=== PATIENT | male | born 1955 | race Caucasian/White ===

== ENCOUNTER 2019-02-18 11:20 | Day surgery (SDC) | payer SELFPAY ==
[2019-02-18] VITALS (9 sets, daily range): BP systolic 105–149; BP diastolic 57–122; PULSE 60–83; RESP 16–18; TEMP 36.2–36.5; O2SAT 95–98; BMI 23.9
--- NOTE | 2019-02-18 11:35 | ED.VIS.GEN ---
History of Present Illness Chief Complaint: Foreign Body Detail of Chief Complaint: Difficulty swallowing solid foods Informant: Patient Onset: Yesterday, Weeks - And many weeks ago Context: Sudden Onset Timing: Continuous Quality: Difficulty swallowing liquids and unable to swallow solids Location: Esophagus Current Severity: Mild Maximum Severity: Severe Worsened by: Attempt to eat solids Relieved by: Nothing Associated Symptoms: Patient states he attempted to eat cereal this morning and vomited Narrative: Patient is a 63-year-old male with no sniffing past medical history presents because he is unable to swallow solids. He reports similar episode several months ago. He is never had an EGD. He states last evening he had CABG soup with bread. He feels something is stuck and he points at the xiphoid process. This morning he attempted to have serial. The serial did not go down and he had to go to the sink to vomit. He attempted to drink tea 1 hour prior to presenting and reports difficulty. He denies fever, chills night sweats. Denies weight gain or weight loss. He has no history of reflux, hiatal hernia or peptic ulcer disease. Prior similar symptoms: Yes Recent Illness/Hospitalization: No - Past Medical History (1) No significant past medical history Status: Acute Past Medical History - Allergies and Home Meds Allergies/Adverse Reactions: Allergies No Known Allergies Allergy (Verified 02/18/19 11:24) Primary Care Physician: NOT,DEFINED [NON-STAFF] - Prior records reviewed: No Past Medical History: None Surgical History: no surgical history Lives: Spouse/ Significant Other Smoking Status: Never smoker Alcohol: None Review of Systems General: Denies: Chills, Fever, Sweats Eyes: Denies: Visual changes - bilaterally, Diplopia ENT: Reports: - - He denies dysphonia.. Denies: Bilateral ear pain, Rhinorrhea, Sore throat Cardiovascular: Denies: Chest pain, Palpitations Respiratory: Denies: Dyspnea, Cough, Dyspnea on exertion Gastrointestinal: Reports: Abdominal pain Genitourinary: Denies: Dysuria, Hematuria, Frequency Musculoskeletal: Denies: Myalgias, Neck pain, Back pain, Swelling, Extremity Pain Skin: Denies: Rash, Wounds Neurological: Denies: Headache, Weakness, Numbness Physical Exam Vital Signs/Narrative: Vital Signs Temp Pulse Resp BP Pulse Ox 02/18/19 11:21 97.2 F L 75 16 142/74 H 97 Inital Vital Signs reviewed: Yes General: Well nourished, Well developed, No Acute Distress Head: Normocephalic, Atraumatic Eyes: Perrl, EOMI. Negative for: Pale conjunctiva, Scleral icterus ENT: Moist mucous membranes, No rhinorrhea Neck: Supple, Nontender, No lymphadenopathy, No JVD Cardiovascular: Regular rate, Regular rhythm, No murmurs Respiratory: No distress, CTA bilaterally, Chest nontender Abdomen: Soft, Nontender, Nondistended, Normal bowel sounds Back: Nontender, Normal Inspection Skin: Normal color, No rash, No Trauma. Negative for: Cyanosis, Diaphoresis, Jaundice Neurological: Alert, Oriented x3, Cranial nerves II-XII grossly intact, Normal Strength, Normal Sensation Psychological: Normal affect, Normal Mood Diagnostic/Tx/Re-eval - Medical Decision Making Dr. Waldemar Owens was paged. Dr. Waldemar Owens was made aware patient's history and physical. He will contact Endo and Endo will call back and let us know when there is a time available for EGD. ED Disposition - Plan for ED Patient: Disposition: Home or Assisted Living Diagnosis: Esophageal obstruction due to food impaction Instructions: ESOPHAGEAL FOREIGN BODY, Resolved Referrals: NOT,DEFINED [NON-STAFF] - Tommy Owens MD [STAFF PHYSICIAN] -
--- NOTE | 2019-02-18 12:10 | PCM.HP.STD ---
Problem List (1) Esophageal obstruction due to food impaction Status: Acute History of Present Illness Date of Admission: 02/18/19 Chief Complaint: Esophageal obstruction The patient is a 63 year old M who presented with a feeling of solid food being stuck in his esophagus x 1 day. Patient noted having cabbage soup with bread yesterday. He noted the bread seem to stick and he had difficulty swallowing the bread completely. He notes trying cereal this morning which did not go down. He ended up throwing up the cereal. He tried to drink tea to see if this would help with swallowing. He continued to have a feeling of something being stuck. He denies abdominal pain. He denies having a a previous upper scope. He notes dysphagia has been ongoing for a couple years. He denies previous colonoscopy. He notes occasional rectal bleeding. He denies previous complications with anesthesia. He takes supplements daily, no routine medications. Past Medical History Allergies No Known Allergies Allergy (Verified 02/18/19 11:24) Surgical History: total hip arthroplasty - bilateral Psychiatric History: No pertinent psych hx Lives: Spouse/ Significant Other Smoking Status: Never smoker Alcohol: None - *Family History Maternal History Items: No pertinent history Paternal History Items: No pertinent history Review of Systems Constitutional: Reports: Anorexia HEENT: Denies: Head Aches, Sinus Congestion, Sinus Drainage Cardiovascular: Denies: Chest Pain, Palpitations Respiratory: Denies: Cough, Shortness of breath at rest, Sputum production Gastrointestinal: Reports: Abdominal Pain - epigastric pressure Genitourinary: Denies: Dysuria Musculoskeletal: Denies: Joint Pain, Joint Tenderness Skin: Denies: Rash, Wounds Neurological: Denies: Numbness, Tingling, Focal weakness Psychiatric: Denies: Anxiety, Depression, Homicidal Ideations, Suicidal Ideations Hematologic/ Lymphatic: Denies: Easy Bruising, Easy Bleeding VTE Information - Inpt Only VTE Present on Admission: Yes VTE Mechan Device Prophylaxis: SCD's - Physical Exam Vitals/I&O's: Vital Signs Temp Pulse Resp BP Pulse Ox 97.2 F L 72 18 137/63 H 96 02/18/19 11:21 02/18/19 11:59 02/18/19 11:59 02/18/19 11:59 02/18/19 11:59 Oxygen Delivery Method Room Air Weight: 166 lb 10.711 oz Body Mass Index (BMI) 23.9 General: Alert, Oriented x3, Cooperative HEENT: Atraumatic, PERRLA, EOMI, Normocephalic Neck: Supple, No JVD, Negative Carotid Bruits Lungs: Clear to auscultation, Normal air movement Cardiovascular: Regular rate, No murmurs Abdomen: Bowel Sounds Present, Soft, Non Tender, Non-Distended Extremities: No edema, Capillary Refill Less than 3 Seconds Skin: No rashes, No breakdown Musculoskeletal: No Tenderness to Palpation of Joints or Extremities Neurological: Neuro grossly intact Psych/Mental Status: Normal Affect, Appropriate Assessment/Plan All Active Problems No significant past medical history (Acute) Esophageal obstruction due to food impaction (Acute) I am seeing this patient in conjunction with Dr. Owens. Impression: Epigastric pressure. Esophageal obstruction. Plan: Patient was discussed with Dr. Owens. Dr. Owens will plan to perform an upper scope with possible foreign body removal, possible dilatation, possible biopsies. Procedure details, risks and benefits have been explained to the patient. Patient has had the opportunity to ask and have questions answered. Patient verbally understands and agrees with the plan. Thank you for allowing us to participate in this patient's care. Code Visit Office Visits / Consults: [id number] IP Consult L3
[2019-02-18] MEDS: Lactated Ringers 1,000 ML 100 ML IV (12:53)
--- NOTE | 2019-02-18 14:07 | OP.ENDO_ITS ---
02/18/2019 No Primary Care Physician Re : Upper GI endoscopy procedure for Simone Hunter Dear Care Physician This procedure was performed on Monday, February 18, 2019. My impressions and recommendations are as follows: Impressions : - Friable (with contact bleeding) mucosa in the esophagus. No specimens collected. - Normal stomach. No specimens collected. - Normal examined duodenum. No specimens collected. Recommendations : - Discharge patient to home. - Soft diet. - Use Prilosec OTC 20 mg PO daily for 4 weeks. - Continue present medications. My findings are described in the full procedure note, which is enclosed. If I can be of further assistance, please feel free to contact me at Doctor phone number(s): , Fax: [phone], Work: . Sincerely, MD Tommy ePrson MD 02/18/2019 2:06:40 PM This report has been signed electronically.
== END 2019-02-18 15:00 | disposition home or self-care (01) ==
LOC: ED 12:27 → AC 12:28
PROVIDERS: Emergency Provider Emergency Medicine; Visit Provider Surgery
PROC: 0DJ08ZZ Inspection of Upper Intestinal Tract, Via Natural or Artificial Opening Endoscopic (ICD-10-PCS; CPT 43235; principal; 2019-02-18 13:25)
DX: K22.8 Other specified diseases of esophagus (principal); T18.128A Food in esophagus causing other injury, initial encounter; X58.XXXA Exposure to other specified factors, initial encounter; Y93.9 Activity, unspecified; Y92.9 Unspecified place or not applicable; K21.9 Gastro-esophageal reflux disease without esophagitis
CPT/HCPCS: 43235; 99282; J7120; A4216; J2405

== ENCOUNTER 2022-10-11 13:11 | Inpatient (IN) | payer MEDICARE, SELFPAY ==
[2022-10-11] VITALS (25 sets, daily range): BP systolic 99–141; BP diastolic 70–99; PULSE 48–147; RESP 13–24; TEMP 36.2–36.7; O2SAT 92–98; BMI 26.0; BMI 24.7
--- NOTE | 2022-10-11 13:36 | EKG12_ITS ---
Test Reason : SOB Blood Pressure : / mmHG Vent. Rate : 140 BPM Atrial Rate : 000 BPM P-R Int : 000 ms QRS Dur : 096 ms QT Int : 284 ms P-R-T Axes : 000 017 140 degrees QTc Int : 433 ms Atrial fibrillation with rapid ventricular response ST & T wave abnormality, consider lateral ischemia Abnormal ECG Confirmed by SUSHMA VALERIO, BABAK ([id number]), visual effects editor KYMBERLY SANDERS ([id number]) on 10/14/2022 9:57:49 AM Referred By: RID Confirmed By:MADHAVI ORDAZ MD
--- NOTE | 2022-10-11 13:36 | RAD_ITS ---
STUDY: X-RAY CHEST REASON FOR EXAM: Male, 67 years old. Atypical chest pain TECHNIQUE: Single AP portable view of the chest. COMPARISON: None. FINDINGS: The lungs are clear and expanded. There is no demonstrated pleural abnormality. Normal size heart. Normal mediastinum and flavia. Normal visualized pulmonary arteries. Normal visualized aortic arch and descending thoracic aorta. There are diffuse degenerative changes of the visualized thoracic spine. Normal visualized ribs, clavicles, and shoulders. There is no demonstrated abnormality of the visualized soft tissue structures of the upper abdomen. RAD/Chest 1 View (Portable) IMPRESSION: No acute pulmonary process Electronically Signed: Lc Pierson MD at 14:10 EDT ,
--- NOTE | 2022-10-11 13:39 | ED.VIS.DYS ---
HPI History of Present Illness Chief Complaint: Shortness of Breath Narrative Narrative: 67-year-old male who denies significant past medical history presents from the clinic with reported atrial fibrillation with RVR. He relates history that for the last week he has been short of breath with dyspnea on exertion. He denies any fevers or chills, no cough, but yesterday he noticed that his bilateral legs were swollen. He denies any chest pain. No nausea or vomiting, no other symptoms. He states that he had a heart rate in the 40s at this outpatient clinic, and they performed an EKG and he was shown to have a heart rate in the 126. They scheduled him for an outpatient echocardiogram, but told him to go to the emergency department for further evaluation. [facility] Home Medications Oregano powder 10/11/22 [History Last Taken Unknown] Allergy/AdvReac Type Severity Reaction Status Date / Time No Known Allergies Allergy Verified 02/18/19 11:24 Social History Smoking Status: Never smoker ROS ROS ED ROS Narrative Constitutional: No fever, no chills. HEENT: No sore throat. No neck pain. No loss of vision. No rhinorrhea. Cardiovascular: No chest pain currently. No palpitations. No pedal edema. Respiratory: No cough, positive shortness of breath. Abdominal: No abdominal pain. No nausea. No vomiting. Genitourinary: No dysuria. No hematuria. Musculoskeletal: No myalgias. No arthralgias. Neurologic: No headaches. No dizziness. No lightheadedness. Skin: No rash. No change in color. Psychiatric: No depression. No anxiety. EXAM Physical Exam Narrative Exam Narrative: Afebrile. Vital signs noted. HEENT: Normocephalic. Atraumatic. PERRL, EOMI. Neck soft and supple. No point tenderness or step off. Cardiovascular: Irregularly irregular rhythm, no murmurs, rubs, or gallops appreciated. Respiratory: No tachypnea. Lungs clear to auscultation bilaterally. Gastrointestinal: Abdomen soft, nontender, with normoactive bowel sounds. No rebound or guarding. Neurological: Awake. Alert. Nonfocal, nonlateralizing. Skin: No rash. Normal color. No pallor. Musculoskeletal: Trace to 1+ bilateral symmetric pedal edema. Full range of motion extremities. Const Vital Signs: 10/11/22 13:11 10/11/22 13:54 10/11/22 13:55 Temperature 97.2 F L Temperature Source Temporal Pulse Rate 48 L Respiratory Rate 18 Respiratory Effort Normal Non-Labored Respiratory Depth Normal Respiratory Pattern Normal Blood Pressure 131/87 H Blood Pressure Mean 101 Pulse Ox 98 98 Oxygen Delivery Method Room Air Room Air Room Air 10/11/22 14:24 10/11/22 14:47 10/11/22 14:50 Temperature Temperature Source Pulse Rate 142 H 147 H 106 H Respiratory Rate 21 H 21 H Respiratory Effort Respiratory Depth Respiratory Pattern Blood Pressure 120/89 H 122/83 H Blood Pressure Mean 99 96 Pulse Ox 97 97 Oxygen Delivery Method Room Air Room Air 10/11/22 14:54 10/11/22 15:06 Temperature Temperature Source Pulse Rate 91 93 Respiratory Rate Respiratory Effort Respiratory Depth Respiratory Pattern Blood Pressure Blood Pressure Mean Pulse Ox Oxygen Delivery Method MDM MDM MDM Narrative Medical decision making narrative: I reviewed his outpatient EKGs which shows A-fib with RVR at [address] changes. No STEMI. I do feel that he needs a repeat EKG. EKG obtained here interpreted by myself independently shows atrial fibrillation with rapid ventricular response at [address] changes. No STEMI. I reviewed his laboratory work and he has a normal white count of 7.5, hemoglobin 15.1, hematocrit normal at 45.0, platelet count normal at 158. Magnesium is normal at 2.0, initial high-sensitivity troponin is 14. BNP is elevated at 447, which I feel is secondary to his atrial fibrillation with rapid ventricular response. My interpretation of his chest x-ray shows no acute process, no pneumonia or CHF. TSH was reviewed and is 2.97. At this point in time, for rate control he will be given a Cardizem bolus of 20 mg. I will discuss patient with the hospitalist for admission for his new onset atrial fibrillation and elevated BNP. After Cardizem, his heart rate is in the 80s to 90s. I discussed the patient with Dr. Magaña who would like the patient placed on a Cardizem drip and admitted to the PCU. Disposition is admit in stable condition. History & Record Review Discussion w/independent historian: Patient Additional record(s) reviewed:: Prior outpatient record (Sent from outpatient clinic) Lab Data Attestation: I reviewed the patient's lab results. Labs: Laboratory Results - last 24 hr 10/11/22 10/11/22 10/11/22 13:51 13:51 13:51 WBC 7.5 RBC 4.83 Hgb 15.1 Hct 45.0 MCV 93.2 MCH 31.3 MCHC 33.6 RDW Std Deviation 51.5 H RDW Coeff of Jacqueline 15.1 H Plt Count 158 MPV 13.0 H Immature Gran % (Auto) 0.300 Neut % (Auto) 54.7 Lymph % (Auto) 31.1 [place] % (Auto) 10.3 H Eos % (Auto) 2.8 Baso % (Auto) 0.8 Absolute Neuts (auto) 4.1 Absolute Lymphs (auto) 2.32 Nucleated RBC % 0 Magnesium 2.0 Troponin I High Sens Cancelled 14 B-Natriuretic Peptide TSH 2.97 10/11/22 13:51 WBC RBC Hgb Hct MCV MCH MCHC RDW Std Deviation RDW Coeff of Jacqueline Plt Count MPV Immature Gran % (Auto) Neut % (Auto) Lymph % (Auto) [place] % (Auto) Eos % (Auto) Baso % (Auto) Absolute Neuts (auto) Absolute Lymphs (auto) Nucleated RBC % Magnesium Troponin I High Sens B-Natriuretic Peptide 447.9 H TSH Radiography Diagnostic Testing: Clinical Impression(s) from Imaging Studies Chest X-Ray 10/11/22 13:36 IMPRESSION: No acute pulmonary process Electronically Signed: Lc Pierson MD at 14:10 EDT Reading Location ID and State: [facility] / [place] , Service support , Discharge Plan Dx/Rx/DC Orders Clinical Impression: Atrial fibrillation, new onset, Atrial fibrillation with RVR, Elevated brain natriuretic peptide (BNP) level, SOB (shortness of breath) Disposition Disposition: [facility]
[2022-10-11] MEDS: Aspirin 81 MG TAB.CHEW 324 MG PO (13:59)
[2022-10-11 14:05] LABS: Absolute Lymphocyte Count 2.32 X10^3/uL (0.83-4.51); Absolute Neutrophil Count 4.1 X10^3/uL (2.0-7.7); Basophil# 0.06 X10^3/uL; Basophil% 0.8 % (0-1); Eosinophil# 0.21 X10^3/uL; Eosinophils% 2.8 % (0-5); Hemoglobin 15.1 g/dL (13.0-16.5); Lymphocyte # 2.32 X10^3/ul (0.83-4.51); Lymphocyte % 31.1 % (19-41); Mean Corp Hgb Conc 33.6 g/dL (32-36); Mean Corpuscular Hgb 31.3 pg (27.0-32.0); Mean Corpuscular Volume 93.2 fL (80-94); Monocyte# 0.77 X10^3/uL; Monocyte% 10.3 % (0-10); NRBC Flagged by Analyzer 0 % (0-5); Neutrophil # 4.07 X10^3/uL (2.7-7.7); Neutrophil % 54.7 % (47-70); Platelet Count 158 K/mm3 (150-450); RBC Distribution Width CV 15.1 % (11.6-14.6); RBC Distribution Width SD 51.5 fl (35.1-43.9); Red Blood Count 4.83 M/mm3 (4.6-6.2); White Blood Count 7.5 K/mm3 (4.4-11.0)
[2022-10-11 14:17] LABS: BNP,B-Type NATRIURETIC PEPTIDE 447.9 pg/mL (0-100)
[2022-10-11 14:26] LABS: Thyroid Stim Hormone (TSH) 2.97 uIU/mL (0.358-3.74)
[2022-10-11 14:33] LABS: Troponin-I HS (w/2H Reflex) 14 pg/mL (3.0-78.0)
[2022-10-11] MEDS: dilTIAZem 25 MG/5 ML Vial 20 MG IV BOLUS (14:46)
--- NOTE | 2022-10-11 15:45 | ED.RN ---
PER DR. THORNTON, D/T VITALS DO NOT START CARDIZEM DRIP AT THIS TIME.
[2022-10-11 15:58] LABS: Reflex Troponin-HS? (from REC) Y
--- NOTE | 2022-10-11 16:10 | ECHOD_ITS ---
Reason For Study: CONGESTIVE HEART FAILURE Procedure This was a 2D Doppler, Color Flow transthoracic echocardiogram. Exam performed portable in patient room. Left Ventricle Normal LV size. The estimated ejection fraction is 50-55 %. Diastolic function is indeterminate. No regional wall motion abnormalities noted. Right Ventricle Normal RV size. Normal systolic function. Atria The left atrium is moderately enlarged. The right atrium is mildly enlarged. No doppler evidence for ASD. Mitral Valve There is no mitral valve stenosis. Severe (4+) mitral valve insufficiency. Tricuspid Valve There is no tricuspid stenosis. Trivial tricuspid valve insufficiency. Pulmonary artery systolic pressure is 25 mmHg. Aortic Valve Moderate diffuse aortic valve calcification. Trisinus/trileaflet aortic valve. There is no aortic stenosis. No aortic valve insufficiency. Pulmonic Valve There is no pulmonic valvular stenosis. Trivial pulmonic valve insufficiency. Great Vessels Normal aortic root. Pericardium/Pleural Trivial pericardial effusion. MMode/2D Measurements & Calculations LVIDd: 6.2 cm IVSd: 0.94 cm LVOT diam: 2.0 cm LVIDs: 5.1 cm LVPWd: 0.90 cm LVOT area: 3.0 cm2 RVDd: 3.6 cm FS: 17.4 % LAV(MOD-bp): 139.0 ml LVAd ap4: 41.2 cm2 LVAd ap2: 47.1 cm2 LAV(MOD-bp) Indexed: 71.0 ml/m2 LVLd ap4: 8.9 cm LVLd ap2: 9.8 cm LAV(MOD-sp2): 146.8 ml EDV(MOD-sp4): 157.8 ml EDV(MOD-sp2): 188.9 ml LAV(MOD-sp4): 110.7 ml EDV(sp4-el): 161.6 ml EDV(sp2-el): 192.2 ml LVAs ap4: 28.7 cm2 LVAs ap2: 32.7 cm2 LVLs ap4: 7.0 cm LVLs ap2: 8.1 cm ESV(MOD-sp4): 98.0 ml ESV(MOD-sp2): 111.6 ml ESV(sp4-el): 100.6 ml ESV(sp2-el): 111.5 ml EF(MOD-sp4): 37.9 % EF(MOD-sp2): 41.0 % EF(sp4-el): 37.8 % SV(MOD-sp4): 59.8 ml SV(MOD-sp2): 77.4 ml SV(sp4-el): 61.0 ml LA dimension(2D): 5.0 cm LA A4 area: 31.6 cm2 RA A4 area: 22.1 cm2 Time Measurements MV dec time: 0.15 sec Doppler Measurements & Calculations MV E max marcos: 97.5 cm/sec Lat Peak E' Marcos: 12.1 cm/sec Med Peak E' Marcos: 10.1 cm/sec E/E' lat: 8.1 E/E' med: 9.6 Ao V2 max: 132.8 cm/sec LV V1 max: 93.0 cm/sec SV(LVOT): 47.5 ml Ao max P.1 mmHg LV V1 max P.5 mmHg Ao V2 mean: 90.8 cm/sec LV V1 mean P.1 mmHg Ao mean P.8 mmHg LV V1 mean: 67.5 cm/sec Ao V2 VTI: 23.3 cm LV V1 VTI: 15.6 cm AV (velocity ratio): 0.67 PACO(I,D): 2.0 cm2 PACO(V,D): 2.1 cm2 PA V2 max: 116.0 cm/sec TR max marcos: 233.4 cm/sec PA max PG (full): 4.1 mmHg TR max P.8 mmHg ECHO/Echo Complete Interpretation Summary The estimated ejection fraction is 50-55 %. Diastolic function is indeterminate. Severe (4+) mitral valve insufficiency. The left atrium is moderately enlarged. The right atrium is mildly enlarged. Ordering Physician: Bennie Magaña Performed By: Natalya Verduzco RDCS
[2022-10-11 16:31] LABS: Troponin-I HS 14 pg/mL (3.0-78.0)
--- NOTE | 2022-10-11 17:01 | PCM.HP.STD ---
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 Denied any orthopnea, however admitted to symptoms of paroxysmal nocturnal dyspnea. He denies any chest pain or palpitations. No prior history of heart disease. In the emergency department he was found to be in atrial fibrillation with rapid ventricular response with heart rates as high as 140 and was given a bolus of Cardizem with rate now under control. [facility] Home Medications Oregano powder 10/11/22 [History Last Taken Unknown] Allergy/AdvReac Type Severity Reaction Status Date / Time No Known Allergies Allergy Verified 02/18/19 11:24 Surgical History Hip joint replacement by other means Social History Smoking Status: Never smoker ROS ROS Narrative Denies any chest pain abdominal pain or nausea or vomiting. All other systems reviewed and essentially negative as above in the body of the history. Vital Signs Vital Signs Vital Signs: 10/11/22 13:11 10/11/22 13:54 10/11/22 13:55 Temperature 36.2 C L Temperature Source Temporal Pulse Rate 48 L Respiratory Rate 18 Respiratory Effort Normal Non-Labored Respiratory Depth Normal Respiratory Pattern Normal Blood Pressure 131/87 H Blood Pressure Mean 101 Blood Pressure Source Blood Pressure Position Blood Pressure Location Pulse Ox 98 98 Oxygen Delivery Method Room Air Room Air Room Air 10/11/22 14:24 10/11/22 14:47 10/11/22 14:50 Temperature Temperature Source Pulse Rate 142 H 147 H 106 H Respiratory Rate 21 H 21 H Respiratory Effort Respiratory Depth Respiratory Pattern Blood Pressure 120/89 H 122/83 H Blood Pressure Mean 99 96 Blood Pressure Source Blood Pressure Position Blood Pressure Location Pulse Ox 97 97 Oxygen Delivery Method Room Air Room Air 10/11/22 14:54 10/11/22 15:06 10/11/22 15:42 Temperature 36.6 C Temperature Source Temporal Pulse Rate 91 93 88 Respiratory Rate 13 Respiratory Effort Respiratory Depth Respiratory Pattern Blood Pressure 101/77 Blood Pressure Mean 85 Blood Pressure Source Blood Pressure Position Blood Pressure Location Pulse Ox 97 Oxygen Delivery Method Room Air 10/11/22 15:45 10/11/22 15:49 10/11/22 16:17 Temperature Temperature Source Pulse Rate 82 96 95 Respiratory Rate 19 H Respiratory Effort Respiratory Depth Respiratory Pattern Blood Pressure 102/78 Blood Pressure Mean 86 Blood Pressure Source Blood Pressure Position Blood Pressure Location Pulse Ox 97 Oxygen Delivery Method Room Air 10/11/22 16:38 Temperature 36.7 C Temperature Source Oral Pulse Rate 97 Respiratory Rate 17 Respiratory Effort Respiratory Depth Respiratory Pattern Blood Pressure 114/91 H Blood Pressure Mean 98 Blood Pressure Source Monitor Blood Pressure Position Semi-Fowlers Blood Pressure Location Right Arm Pulse Ox 97 Oxygen Delivery Method Room Air Weight Weight: 78.1 kg Body Mass Index (BMI) 24.7 Physical Exam Narrative General exam. Middle-aged man, anxious appearing, not particularly dyspneic or ill-appearing Neck. There is jugular venous distention 2+. Neck is supple. HEENT. Oral mucosa moist no pallor jaundice no cyanosis. Heart. Heart sounds are irregular. No murmurs heard Lungs. Diminished breath sounds in the bases. Extremities. 2+ pitting edema in both lower extremities. [employer]. Conscious and alert and oriented x3. Cranial nerves II to XII grossly intact. Results Lab / Micro Data Result Diagrams: 10/11/22 13:51 Labs: Laboratory Results - last 24 hr 10/11/22 13:51: WBC 7.5, RBC 4.83, Hgb 15.1, Hct 45.0, MCV 93.2, MCH 31.3, MCHC 33.6, RDW Std Deviation 51.5 H, RDW Coeff of Jacqueline 15.1 H, Plt Count 158, MPV 13.0 H, Immature Gran % (Auto) 0.300, Neut % (Auto) 54.7, Lymph % (Auto) 31.1, [place] % (Auto) 10.3 H, Eos % (Auto) 2.8, Baso % (Auto) 0.8, Absolute Neuts (auto) 4.1, Absolute Lymphs (auto) 2.32, Nucleated RBC % 0 10/11/22 13:51: Magnesium 2.0, Troponin I High Sens Cancelled, TSH 2.97 10/11/22 13:51: Troponin I High Sens 14 10/11/22 13:51: B-Natriuretic Peptide 447.9 H 10/11/22 16:10: Troponin I High Sens 14 Radiology Impression Chest X-Ray 10/11/22 13:36 IMPRESSION: No acute pulmonary process Electronically Signed: Lc Pierson MD at 14:10 EDT Reading Location ID and State: [address] [place] [address] , Service support , Assessment & Plan Assessment/Plan (1) Atrial fibrillation with RVR: PLAN: Plan 1. Newly detected/new onset atrial fibrillation with rapid ventricular response. Has received a bolus of Cardizem with 20 mg. We will start patient on Cardizem drip to ensure rates remain controlled. Tomorrow can transition to oral administered jose blockers while titrating off Cardizem drip. Echocardiogram as part of evaluation. Consult cardiology. Keep on telemetry. Check TSH levels. [id number] score of 2. We will start patient on anticoagulation with Lovenox. Possible transition to oral NOAC prior to discharge. 2. New onset congestive heart failure. Given cardiomegaly on chest x-ray/plain radiographs suspect systolic congestive heart failure. Echocardiogram for evaluation above. CHF may have been precipitated by atrial fibrillation or may have been the cause of the atrial fibrillation. It remains to determine. Charges/Coding Visit Charges Inpatient E&M: 98052 Init Hosp L3
[2022-10-11] MEDS: Furosemide 40 MG/4 ML Vial IV (18:43)
[2022-10-11] MEDS: 0.9% Saline Lock 10 ML Syringe IV (18:44)
[2022-10-11] MEDS: Enoxaparin 100 MG/ML Syringe 80 MG SC (20:37)
[2022-10-12] VITALS (27 sets, daily range): BP systolic 101–138; BP diastolic 68–99; PULSE 61–120; RESP 14–23; TEMP 35.9–36.8; O2SAT 90–99
[2022-10-12] MEDS: 0.9% Saline Lock 10 ML Syringe IV ×5 (02:49→21:38)
[2022-10-12 07:24] LABS: Absolute Lymphocyte Count 2.65 X10^3/uL (0.83-4.51); Absolute Neutrophil Count 3.2 X10^3/uL (2.0-7.7); Basophil# 0.05 X10^3/uL; Basophil% 0.7 % (0-1); Eosinophil# 0.28 X10^3/uL; Eosinophils% 4.1 % (0-5); Hematocrit 41.2 % (40-54); Lymphocyte # 2.65 X10^3/ul (0.83-4.51); Lymphocyte % 38.5 % (19-41); Mean Corpuscular Hgb 31.2 pg (27.0-32.0); Mean Corpuscular Volume 91.8 fL (80-94); Mean Platelet Vol. 13.4 fl (6.2-12.0); Monocyte# 0.65 X10^3/uL; Monocyte% 9.4 % (0-10); NRBC Flagged by Analyzer 0 % (0-5); Neutrophil # 3.24 X10^3/uL (2.7-7.7); Platelet Count 126 K/mm3 (150-450); RBC Distribution Width CV 15.1 % (11.6-14.6); RBC Distribution Width SD 50.8 fl (35.1-43.9); Red Blood Count 4.49 M/mm3 (4.6-6.2); White Blood Count 6.9 K/mm3 (4.4-11.0)
[2022-10-12 08:05] LABS: AST(SGOT) 50 U/L (15-37); Alanine Aminotransfer ALT/SGPT 130 U/L (16-61); Alkaline Phosphatase 77 U/L (45-117); Anion Gap 7 (5-15); BUN 15 mg/dL (7-18); Calcium,Total 8.5 mg/dL (8.5-10.1); Chloride 111 mmol/L (98-107); Creatinine, Serum 0.83 mg/dL (0.70-1.30); EST Glomerular Filtration Rate 98 mL/min (>60); Est Glom Filt Rate - Afr Amer 118 mL/min (>60); Estimated Creatinine Clearance 87.95 ml/min; Glucose 91 mg/dL (74-106); Phosphorus 4.2 mg/dL (2.5-4.9); Potassium 3.7 mmol/L (3.5-5.1); Sodium Level 141 mmol/L (136-145)
--- NOTE | 2022-10-12 08:29 | PCM.PN.HOSP ---
Reason for Visit Reason for Visit: Diagnoses Unspecified atrial fibrillation (10/11/22) Subjective Subjective Feels good. Has been short of breath for 1 week. Objective Data Objective Data Vital Signs: Vital Signs Temp Pulse Resp BP Pulse Ox O2 Del Method 36.6 C 79 17 116/84 H 96 Room Air 10/12/22 08:00 10/12/22 08:00 10/12/22 08:00 10/12/22 08:00 10/12/22 08:00 10/12/22 08:00 Oxygen Delivery Method Room Air Weight: 78.1 kg Body Mass Index (BMI) 24.7 Intake & Output: Intake and Output for Last 24 Hours 10/10/22 10/11/22 10/12/22 23:59 23:59 23:59 Intake Total 356.17 / 371.17 98.75 / 98.75 Output Total 3300 / 3300 750 / 750 Balance -2943.83 / -2928.83 -651.25 / -651.25 Lab / Micro Data Result Diagrams: 10/12/22 06:49 10/12/22 06:49 Labs: Laboratory Results - last 24 hr 10/11/22 13:51: WBC 7.5, RBC 4.83, Hgb 15.1, Hct 45.0, MCV 93.2, MCH 31.3, MCHC 33.6, RDW Std Deviation 51.5 H, RDW Coeff of Jacqueline 15.1 H, Plt Count 158, MPV 13.0 H, Immature Gran % (Auto) 0.300, Neut % (Auto) 54.7, Lymph % (Auto) 31.1, [place] % (Auto) 10.3 H, Eos % (Auto) 2.8, Baso % (Auto) 0.8, Absolute Neuts (auto) 4.1, Absolute Lymphs (auto) 2.32, Nucleated RBC % 0 10/11/22 13:51: Magnesium 2.0, Troponin I High Sens Cancelled, TSH 2.97 10/11/22 13:51: Troponin I High Sens 14 10/11/22 13:51: B-Natriuretic Peptide 447.9 H 10/11/22 16:10: Troponin I High Sens 14 10/12/22 06:49: WBC 6.9, RBC 4.49 L, Hgb 14.0, Hct 41.2, MCV 91.8, MCH 31.2, MCHC 34.0, RDW Std Deviation 50.8 H, RDW Coeff of Jacqueline 15.1 H, Plt Count 126 L, MPV 13.4 H, Immature Gran % (Auto) 0.300, Neut % (Auto) 47.0, Lymph % (Auto) 38.5, [place] % (Auto) 9.4, Eos % (Auto) 4.1, Baso % (Auto) 0.7, Absolute Neuts (auto) 3.2, Absolute Lymphs (auto) 2.65, Nucleated RBC % 0 10/12/22 06:49: Sodium 141, Potassium 3.7, Chloride 111 H, Carbon Dioxide 23.0, Anion Gap 7, BUN 15, Creatinine 0.83, Estim Creat Clear Calc 87.95, Est GFR (MDRD) Af Amer 118, Est GFR (MDRD) Non-Af 98, BUN/Creatinine Ratio 18.0, Glucose 91, Calcium 8.5, Phosphorus 4.2, Magnesium 2.0, Total Bilirubin 0.80, AST 50 H, ALT 130 H, Alkaline Phosphatase 77, Total Protein 6.0 L, Albumin 3.0 L, Globulin 3.0, Albumin/Globulin Ratio 1.0 Radiography Diagnostic Testing: Radiology Impression Chest X-Ray 10/11/22 13:36 IMPRESSION: No acute pulmonary process Electronically Signed: Lc Pierson MD at 14:10 EDT Reading Location ID and State: [address] [place] [address] , Service support , Physical Exam Const alert and no apparent distress HEENT head/scalp atraumatic and moist oral mucous membranes Resp normal respiratory effort, no retractions, no use of accessory muscles and clear to auscultation bilaterally Cardio regular rate, regular rhythm, S1 normal heart sound and S2 normal heart sound Extremity normal to inspection Assessment & Plan Assessment/Plan (1) Atrial fibrillation with RVR: PLAN: Newly detected/new onset atrial fibrillation with rapid ventricular response. Has received a bolus of Cardizem with 20 mg. We will start patient on Cardizem drip to ensure rates remain controlled. Tomorrow can transition to oral administered jose blockers while titrating off Cardizem drip. Echocardiogram as part of evaluation. Consult cardiology. TSH WNL. [id number] score of 2. We will start patient on anticoagulation with Lovenox. Possible transition to oral NOAC prior to discharge. Check echo PLAN: Plan CHF ruled out. CXR reviewed and was unremarkable. VTE prophylaxis: not indicated as he is anticoagulated Charges/Coding Visit Charges Inpatient E&M: 23452 Subs Hosp L2
[2022-10-12] MEDS: Enoxaparin 100 MG/ML Syringe 80 MG SC (09:27)
[2022-10-12] MEDS: Furosemide 40 MG/4 ML Vial IV ×2 (09:28→17:27)
--- NOTE | 2022-10-12 12:10 | CASEMGMT ---
RN CM Face to Face with patient for initial transition planning/care coordination assessment. RN CM introduced self and role at [facility]. Patient lying in bed, alert and oriented. Patient willing to participate in assessment and is able to answer all questions appropriately. Care providers, pharmacy, and demographics verified. Patient wishes to discharge home, denies need for home health at this time. Patient states he has no further needs or concerns at this time. CM to follow for discharge planning needs that may arise. PCP: No PCP, CM to provided PCP list Specialists: none Preferred Pharmacy: [facility] Insurance: [employer] Prescription Benefit: none Living Will/HPOA: yes, Sultana Hunter LNOK: Living Arrangements: Patient lives with in a 2 story home with bed and bath on first floor, no steps to enter. Patient states he is independent at home. Transportation: self, DME/HHC: Patient has cane, walker, wheelchair at home. No previous HHC or SNF. Disposition Plan: Patient to discharge home with family support and follow-up plans in place. Lona COTE, RN, CM
--- NOTE | 2022-10-12 16:39 | PCM.CONS.C ---
Assessment & Plan Assessment/Plan (1) Atrial fibrillation, new onset: PLAN: We will switch to p.o. Cardizem and try to wean off IV Cardizem. We will start the patient on Eliquis. Risks and benefits explained to the patient. (2) Mitral regurgitation: PLAN: Patient has severe mitral regurgitation. Explained to the patient that most likely we will need further work-up of this and he may end up needing mitral valve replacement. Patient did not have palpitations. Her shortness of breath and lower extremity edema symptoms have been going on over the last few days. It is possible that patient had A-fib with RVR and his ejection fraction being at the lower limits of normal is related to prolonged A-fib with RVR. As an outpatient as far as mitral regurgitation is concerned we could consider a ALLISON or repeat echo. Alternatively we could proceed with cardiac cath in anticipation of MVR. I explained to the patient that these will be discussed with him as an outpatient and and advised him to bring up his valve regurgitation during his office visit. 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 Patient was found to be in A-fib with RVR. He was started on Cardizem drip and also given Lasix. His symptoms have improved. His echo shows EF of 50 to 50% with severe mitral regurgitation. Review of systems: All systems reviewed. All system negative except that in HPI [facility] Home Medications Oregano powder 10/11/22 [History Last Taken Unknown] Allergy/AdvReac Type Severity Reaction Status Date / Time No Known Allergies Allergy Verified 02/18/19 11:24 Surgical History Hip joint replacement by other means Social History Smoking Status: Never smoker Physical Exam Const alert and oriented x3 HEENT normocephalic Eyes no scleral icterus Resp normal respiratory effort and clear to auscultation bilaterally Cardio Cardio Narrative: Irregular rhythm Extremity no pedal edema Psych mental status grossly normal Risk Stratification Risk Stratification Applicable: No Charges/Coding Visit Charges Inpatient E&M: 65370 Init Hosp L2 Objective Data Vital Signs: Vital Signs Temp Pulse Resp BP Pulse Ox O2 Del Method 98 F 120 H 20 H 107/73 99 Room Air 10/12/22 12:00 10/12/22 15:00 10/12/22 15:00 10/12/22 15:00 10/12/22 15:00 10/12/22 15:00 Oxygen Delivery Method Room Air Weight: 172 lb 2.896 oz Body Mass Index (BMI) 24.7 Intake & Output: Intake and Output for Last 24 Hours 10/10/22 10/11/22 10/12/22 23:59 23:59 23:59 Intake Total 356.17 / 371.17 808.75 / 808.75 Output Total 3300 / 3300 1950 / 1950 Balance -2943.83 / -2928.83 -1141.25 / -1141.25 Lab / Micro Data Result Diagrams: 10/12/22 06:49 10/12/22 06:49 Labs: Laboratory Results - last 24 hr 10/12/22 06:49: WBC 6.9, RBC 4.49 L, Hgb 14.0, Hct 41.2, MCV 91.8, MCH 31.2, MCHC 34.0, RDW Std Deviation 50.8 H, RDW Coeff of Jacqueline 15.1 H, Plt Count 126 L, MPV 13.4 H, Immature Gran % (Auto) 0.300, Neut % (Auto) 47.0, Lymph % (Auto) 38.5, [place] % (Auto) 9.4, Eos % (Auto) 4.1, Baso % (Auto) 0.7, Absolute Neuts (auto) 3.2, Absolute Lymphs (auto) 2.65, Nucleated RBC % 0 10/12/22 06:49: Sodium 141, Potassium 3.7, Chloride 111 H, Carbon Dioxide 23.0, Anion Gap 7, BUN 15, Creatinine 0.83, Estim Creat Clear Calc 87.95, Est GFR (MDRD) Af Amer 118, Est GFR (MDRD) Non-Af 98, BUN/Creatinine Ratio 18.0, Glucose 91, Calcium 8.5, Phosphorus 4.2, Magnesium 2.0, Total Bilirubin 0.80, AST 50 H, ALT 130 H, Alkaline Phosphatase 77, Total Protein 6.0 L, Albumin 3.0 L, Globulin 3.0, Albumin/Globulin Ratio 1.0 Cardiology Labs/Tests 10/12/22 06:49: WBC 6.9, RBC 4.49 L, Hgb 14.0, Hct 41.2, MCV 91.8, MCH 31.2, MCHC 34.0, Plt Count 126 L, MPV 13.4 H, Immature Gran % (Auto) 0.300, Neut % (Auto) 47.0, Lymph % (Auto) 38.5, [place] % (Auto) 9.4, Eos % (Auto) 4.1, Baso % (Auto) 0.7, Absolute Neuts (auto) 3.2, Nucleated RBC % 0 10/12/22 06:49: Sodium 141, Potassium 3.7, Chloride 111 H, Carbon Dioxide 23.0, Anion Gap 7, BUN 15, Creatinine 0.83, Est GFR (MDRD) Af Amer 118, Est GFR (MDRD) Non-Af 98, BUN/Creatinine Ratio 18.0, Glucose 91, Calcium 8.5, Phosphorus 4.2, Magnesium 2.0, Total Bilirubin 0.80 Rhythm: EKG: ECHO: Stress Test: Cardiac Cath: PCI: CT Surgery: Holter monitor: EPS: PPM: CXR: Chest CT Scan: Radiography Diagnostic Testing: Radiology Impression Echocardiogram 10/11/22 16:10 Interpretation Summary The estimated ejection fraction is 50-55 %. Diastolic function is indeterminate. Severe (4+) mitral valve insufficiency. The left atrium is moderately enlarged. The right atrium is mildly enlarged. Ordering Physician: Bennie Magaña Performed By: Natalya Verduzco RDCS
[2022-10-12] MEDS: dilTIAZem 30 MG Tablet PO ×2 (17:27→21:38)
[2022-10-12] MEDS: APIXABAN 5 MG TABLET PO (21:38)
[2022-10-13 04:17] VITALS: BP 104/74; PULSE 103; RESP 18; TEMP 36.6; O2SAT 94
[2022-10-13] MEDS: dilTIAZem 30 MG Tablet PO (05:12)
--- NOTE | 2022-10-13 08:16 | PCM.PN.HOSP ---
Reason for Visit Reason for Visit: Diagnoses Nonrheumatic mitral (valve) insufficiency (10/11/22) Unspecified atrial fibrillation (10/11/22) Heart failure, unspecified (10/11/22) Subjective Subjective Feels well. Objective Data Objective Data Vital Signs: Vital Signs Temp Pulse Resp BP Pulse Ox O2 Del Method 36.6 C 103 H 18 104/74 94 Room Air 10/13/22 04:17 10/13/22 04:17 10/13/22 04:17 10/13/22 04:17 10/13/22 04:17 10/13/22 08:00 Oxygen Delivery Method Room Air Weight: 78.1 kg Body Mass Index (BMI) 24.7 Intake & Output: Intake and Output for Last 24 Hours 10/11/22 10/12/22 10/13/22 23:59 23:59 23:59 Intake Total 356.17 / 371.17 1343.33 / 1693.33 350 / 350 Output Total 3300 / 3300 2850 / 5250 2400 / 2400 Balance -2943.83 / -2928.83 -1506.67 / -3556.67 -2050 / -2050 Lab / Micro Data Result Diagrams: 10/13/22 11:25 10/13/22 11:25 Radiography Diagnostic Testing: Radiology Impression Echocardiogram 10/11/22 16:10 Interpretation Summary The estimated ejection fraction is 50-55 %. Diastolic function is indeterminate. Severe (4+) mitral valve insufficiency. The left atrium is moderately enlarged. The right atrium is mildly enlarged. Ordering Physician: Bennie Magaña Performed By: Natalya Verduzco RDCS Physical Exam Const alert and no apparent distress HEENT head/scalp atraumatic and moist oral mucous membranes Resp normal respiratory effort, no retractions, no use of accessory muscles and clear to auscultation bilaterally Cardio regular rate, regular rhythm, S1 normal heart sound and S2 normal heart sound GI normal to inspection, nondistended, normoactive bowel sounds, soft to palpation, non-tender and non-distended Extremity normal to inspection Assessment & Plan Assessment/Plan (1) Atrial fibrillation with RVR: PLAN: Newly detected/new onset atrial fibrillation with rapid ventricular response. TSH WNL. [id number] score of 2. We will start patient on anticoagulation with Lovenox. Possible transition to oral NOAC prior to discharge. Echo shows EF 50-55% with severe [place] On Dilt 30 Q6h and apixaban 5 BID. Was tachycardic. DW Dr. Alvares, recommends increasing diltiazem to 60 Q6h. (2) Mitral regurgitation: PLAN: will need further follow up Likely etiology of Afib Outpt follow for mgmt PLAN: Plan CHF ruled out. CXR reviewed and was unremarkable. VTE prophylaxis: not indicated as he is anticoagulated Charges/Coding Visit Charges Inpatient E&M: 23586 Subs Hosp L2
[2022-10-13 10:18] VITALS: BP 98/79; PULSE 96; RESP 15; TEMP 36.8; O2SAT 95
[2022-10-13] MEDS: APIXABAN 5 MG TABLET PO ×2 (10:26→21:49)
[2022-10-13] MEDS: dilTIAZem 60 MG Tablet PO ×3 (11:10→22:59)
[2022-10-13 11:40] LABS: Absolute Lymphocyte Count 2.37 X10^3/uL (0.83-4.51); Absolute Neutrophil Count 3.9 X10^3/uL (2.0-7.7); Basophil# 0.07 X10^3/uL; Eosinophil# 0.25 X10^3/uL; Eosinophils% 3.4 % (0-5); Lymphocyte # 2.37 X10^3/ul (0.83-4.51); Lymphocyte % 32.3 % (19-41); Mean Corpuscular Hgb 31.6 pg (27.0-32.0); Mean Corpuscular Volume 92.7 fL (80-94); Mean Platelet Vol. 12.6 fl (6.2-12.0); Monocyte# 0.74 X10^3/uL; Monocyte% 10.1 % (0-10); NRBC Flagged by Analyzer 0 % (0-5); Neutrophil % 53.1 % (47-70); Platelet Count 175 K/mm3 (150-450); RBC Distribution Width CV 15.2 % (11.6-14.6); RBC Distribution Width SD 51.5 fl (35.1-43.9); Red Blood Count 5.07 M/mm3 (4.6-6.2); White Blood Count 7.3 K/mm3 (4.4-11.0)
[2022-10-13 12:03] LABS: Anion Gap 6 (5-15); BUN 18 mg/dL (7-18); BUN/Creat Ratio 17.3 RATIO (10-20); Calcium,Total 8.8 mg/dL (8.5-10.1); Chloride 107 mmol/L (98-107); Creatinine, Serum 1.04 mg/dL (0.70-1.30); EST Glomerular Filtration Rate 76 mL/min (>60); Est Glom Filt Rate - Afr Amer 91 mL/min (>60); Estimated Creatinine Clearance 70.19 ml/min; Glucose 130 mg/dL (74-106); Magnesium 2.2 mg/dL (1.6-2.6); Potassium 4.5 mmol/L (3.5-5.1); Sodium Level 137 mmol/L (136-145)
--- NOTE | 2022-10-13 14:37 | CASEMGMT ---
SHAISTA ARAUJO provided patient with PCP list. Patient denied further needs or concerns at this time.
[2022-10-13 15:48] VITALS: BP 119/78; PULSE 110; RESP 16; TEMP 36.8; O2SAT 96
--- NOTE | 2022-10-13 17:54 | PCM.PN.CARD ---
Subjective Subjective Patient feels well. Denies any significant cardiac complaints. Heart rate is still elevated. Cardizem was increased from 30 mg every 6 hours to 60 mg every 6 hours. Objective Data Vital Signs: Vital Signs Temp Pulse Resp BP Pulse Ox O2 Del Method 98.2 F 110 H 16 119/78 96 Room Air 10/13/22 15:48 10/13/22 15:48 10/13/22 15:48 10/13/22 15:48 10/13/22 15:48 10/13/22 15:48 Oxygen Delivery Method Room Air Weight: 172 lb 2.896 oz Body Mass Index (BMI) 24.7 Intake & Output: Intake and Output for Last 24 Hours 10/11/22 10/12/22 10/13/22 23:59 23:59 23:59 Intake Total 356.17 / 371.17 1343.33 / 1693.33 850 / 850 Output Total 3300 / 3300 2850 / 5250 3050 / 3050 Balance -2943.83 / -2928.83 -1506.67 / -3556.67 -2200 / -2200 Lab / Micro Data Result Diagrams: 10/13/22 11:25 10/13/22 11:25 Labs: Laboratory Results - last 24 hr 10/13/22 11:25: WBC 7.3, RBC 5.07, Hgb 16.0, Hct 47.0, MCV 92.7, MCH 31.6, MCHC 34.0, RDW Std Deviation 51.5 H, RDW Coeff of Jacqueline 15.2 H, Plt Count 175, MPV 12.6 H, Immature Gran % (Auto) 0.100, Neut % (Auto) 53.1, Lymph % (Auto) 32.3, [place] % (Auto) 10.1 H, Eos % (Auto) 3.4, Baso % (Auto) 1.0, Absolute Neuts (auto) 3.9, Absolute Lymphs (auto) 2.37, Nucleated RBC % 0 10/13/22 11:25: Sodium 137, Potassium 4.5, Chloride 107, Carbon Dioxide 24.0, Anion Gap 6, BUN 18, Creatinine 1.04, Estim Creat Clear Calc 70.19, Est GFR (MDRD) Af Amer 91, Est GFR (MDRD) Non-Af 76, BUN/Creatinine Ratio 17.3, Glucose 130 H, Calcium 8.8, Magnesium 2.2 Cardiology Labs/Tests 10/13/22 11:25: WBC 7.3, RBC 5.07, Hgb 16.0, Hct 47.0, MCV 92.7, MCH 31.6, MCHC 34.0, Plt Count 175, MPV 12.6 H, Immature Gran % (Auto) 0.100, Neut % (Auto) 53.1, Lymph % (Auto) 32.3, [place] % (Auto) 10.1 H, Eos % (Auto) 3.4, Baso % (Auto) 1.0, Absolute Neuts (auto) 3.9, Nucleated RBC % 0 10/13/22 11:25: Sodium 137, Potassium 4.5, Chloride 107, Carbon Dioxide 24.0, Anion Gap 6, BUN 18, Creatinine 1.04, Est GFR (MDRD) Af Amer 91, Est GFR (MDRD) Non-Af 76, BUN/Creatinine Ratio 17.3, Glucose 130 H, Calcium 8.8, Magnesium 2.2 Rhythm: EKG: ECHO: Stress Test: Cardiac Cath: PCI: CT Surgery: Holter monitor: EPS: PPM: CXR: Chest CT Scan: Physical Exam Const alert and oriented x3 HEENT normocephalic Eyes no scleral icterus Cardio Cardio Narrative: Irregular rate Psych mental status grossly normal Assessment & Plan Assessment/Plan (1) Atrial fibrillation, new onset: PLAN: Cardizem increased today. Will monitor. (2) Mitral regurgitation: PLAN: Patient has severe mitral regurgitation. Explained to the patient that most likely we will need further work-up of this and he may end up needing mitral valve replacement. Patient did not have palpitations. Her shortness of breath and lower extremity edema symptoms have been going on over the last few days. It is possible that patient had A-fib with RVR and his ejection fraction being at the lower limits of normal is related to prolonged A-fib with RVR. As an outpatient as far as mitral regurgitation is concerned we could consider a ALLISON or repeat echo. Alternatively we could proceed with cardiac cath in anticipation of MVR. I explained to the patient that these will be discussed with him as an outpatient and and advised him to bring up his valve regurgitation during his office visit. (3) CHF (congestive heart failure): Charges/Coding Visit Charges Inpatient E&M: 90485 Subs Hosp L2
[2022-10-13 22:57] VITALS: BP 118/81; PULSE 115; RESP 18; TEMP 36.8; O2SAT 96
[2022-10-14 05:10] VITALS: BP 114/76; PULSE 99; RESP 18; TEMP 36.7; O2SAT 97
[2022-10-14] MEDS: dilTIAZem 60 MG Tablet PO ×2 (05:12→11:57)
[2022-10-14] MEDS: APIXABAN 5 MG TABLET PO (08:23)
[2022-10-14 08:35] VITALS: BP 104/86; PULSE 87; RESP 14; TEMP 36.6; O2SAT 96
--- NOTE | 2022-10-14 08:49 | PCM.PN.HOSP ---
Reason for Visit Reason for Visit: Diagnoses Nonrheumatic mitral (valve) insufficiency (10/11/22) Unspecified atrial fibrillation (10/11/22) Heart failure, unspecified (10/11/22) Subjective Subjective Feels well. No events. Objective Data Objective Data Vital Signs: Vital Signs Temp Pulse Resp BP Pulse Ox O2 Del Method 36.7 C 99 18 114/76 97 Room Air 10/14/22 05:10 10/14/22 05:10 10/14/22 05:10 10/14/22 05:10 10/14/22 05:10 10/14/22 05:15 Oxygen Delivery Method Room Air Weight: 78.1 kg Body Mass Index (BMI) 24.7 Intake & Output: Intake and Output for Last 24 Hours 10/12/22 10/13/22 10/14/22 23:59 23:59 23:59 Intake Total 1343.33 / 1693.33 1350 / 1350 Output Total 2850 / 5250 3500 / 3500 450 / 450 Balance -1506.67 / -3556.67 -2150 / -2150 -450 / -450 Lab / Micro Data Result Diagrams: 10/13/22 11:25 10/13/22 11:25 Labs: Laboratory Results - last 24 hr 10/13/22 11:25: WBC 7.3, RBC 5.07, Hgb 16.0, Hct 47.0, MCV 92.7, MCH 31.6, MCHC 34.0, RDW Std Deviation 51.5 H, RDW Coeff of Jacqueline 15.2 H, Plt Count 175, MPV 12.6 H, Immature Gran % (Auto) 0.100, Neut % (Auto) 53.1, Lymph % (Auto) 32.3, [place] % (Auto) 10.1 H, Eos % (Auto) 3.4, Baso % (Auto) 1.0, Absolute Neuts (auto) 3.9, Absolute Lymphs (auto) 2.37, Nucleated RBC % 0 10/13/22 11:25: Sodium 137, Potassium 4.5, Chloride 107, Carbon Dioxide 24.0, Anion Gap 6, BUN 18, Creatinine 1.04, Estim Creat Clear Calc 70.19, Est GFR (MDRD) Af Amer 91, Est GFR (MDRD) Non-Af 76, BUN/Creatinine Ratio 17.3, Glucose 130 H, Calcium 8.8, Magnesium 2.2 Physical Exam Const alert and no apparent distress Constitutional Narrative: no respiratory distress. no conversational dyspnea. Assessment & Plan Assessment/Plan (1) Atrial fibrillation with RVR: PLAN: Newly detected/new onset atrial fibrillation with rapid ventricular response. TSH WNL. [id number] score of 2. We will start patient on anticoagulation with Lovenox. Possible transition to oral NOAC prior to discharge. Echo shows EF 50-55% with severe [place] On Dilt 30 Q6h and apixaban 5 BID. Was tachycardic. DW Dr. Alvares, recommends increasing diltiazem to 60 Q6h. Tolerating dilt 60 Q6h (2) Mitral regurgitation: PLAN: will need further follow up Likely etiology of Afib Outpt follow for mgmt PLAN: Plan CHF ruled out. CXR reviewed and was unremarkable. VTE prophylaxis: not indicated as he is anticoagulated
[2022-10-14 11:57] VITALS: BP 102/74; PULSE 104; RESP 14; TEMP 36.4; O2SAT 96
--- NOTE | 2022-10-14 12:23 | DCINST_ITS ---
Discharge Instructions Diet Discharge Diet: Low fat / Low cholesterol Dressing / Incision Call your doctor if you observe: Shortness of breath, Chest pain and Increased palpitations (irregular heartbeat) Follow Up Care Test Results: Test results from this visit will be discussed in further detail at your follow- up appointment, if applicable. Discharge Plan Admission Admit Date/Time: 10/11/22 16:01 Primary Reason for Your Visit: atrial fibrillation with RVR Attending Provider: Arcadio Woods Primary Care Provider: Care Physician,No Primary Consulting Providers: Yu Caba ; Manisha Alejandro ; Jan Langley ; Bigg Champion ; [place] ; Santi Ramos ; Arcadio Garcia ; Valarie Seaman ; Trevor De Leon ; Stalin Campbell ; Barry Alvares ; Clifton Schrader ; Richard Pascual ; Jero Napoles ; Fazal Fallon RN FORENSIC ; Yu Muñoz NP ; Skyla Stephens ; Bennie Magaña Discharge Orders/Prescriptions Prescriptions: No Action Oregano powder Referrals / Follow Up: Care Physician,No Primary [Primary Care Provider] -
--- NOTE | 2022-10-14 12:23 | PCM.DC ---
Discharge Instructions Diet Discharge Diet: Low fat / Low cholesterol Dressing / Incision Call your doctor if you observe: Shortness of breath, Chest pain and Increased palpitations (irregular heartbeat) Follow Up Care Test Results: Test results from this visit will be discussed in further detail at your follow-up appointment, if applicable. Discharge Plan Admission Admit Date/Time: 10/11/22 16:01 Primary Reason for Your Visit: atrial fibrillation with RVR Attending Provider: Arcadio Woods Primary Care Provider: Care Physician,No Primary Consulting Providers: Yu Caba ; Manisha Alejandro ; Jan Langley ; Bigg Champion ; Sal [place] ; Santi Ramos ; Arcadio Garcia ; Valarie Seaman ; Trevor De Leon ; Stalin Campbell ; Barry Alvares ; Clifton Schrader ; Richard Pascual ; Jero Napoles ; Fazal Fallon RATE REVIEWER ; Yu Muñoz NP ; Skyla Stephens ; Bennie Magaña Instructions Additional Instructions / Restrictions: You had atrial fibrillation with a rapid ventricular rate. Your heart rate is being controlled with diltiazem 60 mg 4 times daily. This is complicated by mitral regurgitation, leaky heart valve that is severe. He will need to have this evaluated for some type of intervention down the road. The tire center supervisor can help guide you through this process. You are also on blood thinners with apixaban. The purpose of blood thinners is to help prevent stroke with atrial fibrillation. Discharge Orders/Prescriptions Prescriptions: New Eliquis 5 mg Tablet 5 mg PO BID Qty: 60 0RF diltiazem HCl 60 mg Tablet 60 mg PO Q6 Qty: 120 0RF Continued Oregano powder Referrals / Follow Up: [facility] [Provider Group] - Within 1 Month Care Physician,No Primary [Primary Care Provider] - Disposition Disposition (needs filled in before D/C Order can be placed): Home, Self Care
--- NOTE | 2022-10-14 12:26 | PCM.DC.SUM ---
Providers Date of Admission: 10/11/22 Primary Care Physician: Sherice Primary Care Phys Consultations 10/11/22 16:00 Consult: Cardiology Routine Consulting Provider: [facility] Reason for Consult: CHF and new onset afib RVR EMERGENT Consult: No MD Notified: Yes Date Notified: 10/11/22 Time Notified: 16:24 Method of Notification: Text Reason For Visit: ATRIAL FIBRILLATION WITH RVR Diagnosis Discharge Diagnosis (1) Atrial fibrillation with RVR: Status: Acute Code(s): I48.91 - Unspecified atrial fibrillation Plan: Newly detected/new onset atrial fibrillation with rapid ventricular response. TSH WNL. [id number] score of 2. We will start patient on anticoagulation with Lovenox. Possible transition to oral NOAC prior to discharge. Echo shows EF 50-55% with severe VT On Dilt 30 Q6h and apixaban [address] BID. Was [address] DW [address] Alvares, recommends increasing diltiazem to 60 Q6h. Tolerating dilt 60 Q6h (2) Mitral regurgitation: Status: Acute Code(s): I34.0 - Nonrheumatic mitral (valve) insufficiency Plan: will need further follow up Likely etiology of Afib Outpt follow for mgmt Plan CHF ruled out. CXR reviewed and was unremarkable. VTE prophylaxis: not indicated as he is anticoagulated Medications at Discharge Home Medications Oregano powder 10/11/22 apixaban 5 mg tablet (Eliquis) 5 mg PO BID #60 tabs 10/14/22 diltiazem HCl 60 mg tablet 60 mg PO Q6 #120 tabs 10/14/22 Hospital Course Operations None Procedures 2-D Echocardiogram Summary of Care Provided Minutes Spent on Discharge: 28 Weight / BMI Weight Weight: 78.1 kg Body Mass Index (BMI) 24.7 ABG / Lab / Microbiology Data Result Diagrams: 10/13/22 11:25 10/13/22 11:25 D/C Instructions Discharge Diet: Low fat / Low cholesterol Call your doctor if you observe: Shortness of breath, Chest pain and Increased palpitations (irregular heartbeat) Meaningful Use Info Meaningful Use Diagnoses (Choose all that apply): None applicable Discharge Plan Admission Admit Date/Time: 10/11/22 16:01 Primary Reason for Your Visit: atrial fibrillation with RVR Attending Provider: Arcadio Woods Primary Care Provider: Care Physician,No Primary Consulting Providers: Yu Caba ; Manisha Alejandro ; Jan Langley ; Bigg Champion ; Sal Lake ; Santi Ramos ; Arcadio Garcia ; Valarie Seaman ; Trevor De Leon ; Stalin Campbell ; Barry Alvares ; Clifton Schrader ; Richard Pascual ; Jero Napoles ; Fazal Fallon YARDING AND FOLDING MACHINE OPERATOR ; Yu Muñoz NP ; Skyla Stephens ; Bennie Magaña Instructions Additional Instructions / Restrictions: You had atrial fibrillation with a rapid ventricular rate. Your heart rate is being controlled with diltiazem 60 mg 4 times daily. This is complicated by mitral regurgitation, leaky heart valve that is severe. He will need to have this evaluated for some type of intervention down the road. The physician's aide can help guide you through this process. You are also on blood thinners with apixaban. The purpose of blood thinners is to help prevent stroke with atrial fibrillation. In addition, please establish with a primary care provider. Discharge Orders/Prescriptions Prescriptions: New Eliquis 5 mg Tablet 5 mg PO BID Qty: 60 0RF diltiazem HCl 60 mg Tablet 60 mg PO Q6 Qty: 120 0RF Continued Oregano powder Referrals / Follow Up: [facility] [Provider Group] - Within 1 Month Care Physician,No Primary [Primary Care Provider] - Disposition Disposition (needs filled in before D/C Order can be placed): Home, Self Care Charges/Coding Visit Charges Inpatient E&M: 84712 Disch Hosp
--- NOTE | 2022-10-14 14:00 | CASEMGMT ---
SHAISTA ARAUJO notified that patient will be discharging today. Patient will discharge on Eliquis. SHAISTA ARAUJO called [facility] to verify cost, $580. SHAISTA ARAUJO provided [facility] with Eliquis savings card over the phone for 30 day free trial. SHAISTA ARAUJO in to patient room to updated regarding cost and free trial, Eliquis information provided to patient. SHAISTA ARAUJO encouraged patient to look into Part D plan for prescription coverage. Patient voiced understanding and had no further questions or concerns.
--- NOTE | 2022-10-14 17:01 | PHA.DC.MR ---
Pharmacy Service has performed discharge medication reconciliation for this patient. The patient's discharge medication list was reviewed for discrepancies and discrepancies were resolved. Medication education papers prepared, patient discharged before I was able to relationship counselor. Home Medications Oregano powder 10/11/22 apixaban 5 mg tablet (Eliquis) 5 mg PO BID #60 tabs 10/14/22 diltiazem HCl 60 mg tablet 60 mg PO Q6 #120 tabs 10/14/22
== END 2022-10-14 14:22 | disposition home or self-care (01) | DRG 310 ==
LOC: ED 15:19 → PCU 15:53
PROVIDERS: Admitting Provider Internal Medicine; Emergency Provider Emergency Medicine
DX: I48.91 Unspecified atrial fibrillation (principal); I34.0 Nonrheumatic mitral (valve) insufficiency
CPT/HCPCS: 36415; 71045; 80048; 80053; 83735; 83880; 84100; 84443; 84484; 85025; 93005; 93306; 97802; 99285; Q9957; A4216; J1940

== ENCOUNTER → 2022-11-03 | Outpatient (CLI) | payer MEDICARE, SELFPAY ==
--- NOTE | 2022-11-03 13:15 | EKG12_ITS ---
Test Reason : AFIB Blood Pressure : / mmHG Vent. Rate : 122 BPM Atrial Rate : 163 BPM P-R Int : 000 ms QRS Dur : 104 ms QT Int : 328 ms P-R-T Axes : 000 -04 109 degrees QTc Int : 467 ms Atrial fibrillation with premature ventricular or aberrantly conducted complexes ST & T wave abnormality, consider lateral ischemia Abnormal ECG Confirmed by CECILE VALERIO, TUNDE ([id number]), website/blog editor KYMBERLY SANDERS ([id number]) on 11/04/2022 9:39:17 AM Referred By: Poppy Uribe Confirmed By:TUNDE HUBER MD
== END | disposition home or self-care (01) ==
PROVIDERS: PCP Nurse Practitioner Family; Referring Provider Nurse Practitioner Family; Visit Provider Nurse Practitioner Family
DX: R01.1 Cardiac murmur, unspecified (principal); I48.91 Unspecified atrial fibrillation
CPT/HCPCS: 93005

== ENCOUNTER 2022-12-05 09:08 | Day surgery (SDC) | payer MEDICARE, SELFPAY ==
[2022-11-24 15:08] LABS: Absolute Lymphocyte Count 2.03 X10^3/uL (0.83-4.51); Absolute Neutrophil Count 3.2 X10^3/uL (2.0-7.7); Basophil# 0.05 X10^3/uL; Basophil% 0.8 % (0-1); Eosinophil# 0.18 X10^3/uL; Hematocrit 40.8 % (40-54); Hemoglobin 13.8 g/dL (13.0-16.5); Lymphocyte # 2.03 X10^3/ul (0.83-4.51); Lymphocyte % 33.8 % (19-41); Mean Corp Hgb Conc 33.8 g/dL (32-36); Mean Corpuscular Hgb 31.1 pg (27.0-32.0); Mean Corpuscular Volume 91.9 fL (80-94); Monocyte% 8.3 % (0-10); NRBC Flagged by Analyzer 0 % (0-5); Neutrophil # 3.24 X10^3/uL (2.7-7.7); Neutrophil % 53.9 % (47-70); Platelet Count 108 K/mm3 (150-450); RBC Distribution Width CV 14.1 % (11.6-14.6); RBC Distribution Width SD 47.8 fl (35.1-43.9); Red Blood Count 4.44 M/mm3 (4.6-6.2)
[2022-11-24 15:39] LABS: Anion Gap 7 (5-15); BUN 14 mg/dL (7-18); BUN/Creat Ratio 16.6 RATIO (10-20); Calcium,Total 8.7 mg/dL (8.5-10.1); Chloride 112 mmol/L (98-107); Creatinine, Serum 0.84 mg/dL (0.70-1.30); EST Glomerular Filtration Rate 96 mL/min (>60); Est Glom Filt Rate - Afr Amer 116 mL/min (>60); Glucose 98 mg/dL (74-106); Sodium Level 142 mmol/L (136-145)
[2022-12-02 08:05] VITALS: BMI 22.9
--- NOTE | 2022-12-05 09:20 | ECHOTEE_ITS ---
Reason For Study: Severe MR Medication ALLISON probe 6VT-D (SN [id number]) passed without difficulty. No complications were noted. Cetacaine Topical [place] given X3 orally. Versed 2 mg given slow IVP. Fentanyl 50 mcg given slow IVP. Left Ventricle Normal left ventricle. The estimated ejection fraction is 45 %. There is mild global hypokinesis of the left ventricle. Right Ventricle Normal RV size. Normal systolic function. Atria Normal atrial septum. The left atrium is moderately enlarged. No thrombus is detected in the left atrial appendage. The right atrium is mildly enlarged. Mitral Valve Bileaflet diffuse mitral valve thickening. Poor coaptation noted especially in the central region of the valve. Moderately severe (3+) mitral valve insufficiency. Tricuspid Valve Normal tricuspid valve. Mild tricuspid valve insufficiency. Aortic Valve Normal aortic valve. Trisinus/trileaflet aortic valve. Pulmonic Valve Normal pulmonic valve. Vessels Normal aortic root. Normal arch. The pulmonary artery is normal size. Pulmonary venous flow normal. Pericardium No pericardial effusion. ECHO/Echo Transesophageal (ALLISON) Interpretation Summary Normal left ventricle. The estimated ejection fraction is 45 %. The left atrium is moderately enlarged. No thrombus is detected in the left atrial appendage. Bileaflet diffuse mitral valve thickening. Moderately severe (3+) mitral valve insufficiency. Poor coaptation noted especially in the central region of the valve Ordering Physician: Skyla Stephens Referring Physician: Poppy Uribe Performed By: Priscilla Fallon, RDCS, RVT
--- NOTE | 2022-12-05 14:41 | CL.D_ITS ---
Patient Name: PONCE SUBRAMANIAN Study Date: 12/05/2022 Performing: Sal Lake MD Ht: 70 inches 177.8 cm : 1955 Wt: 160.2 lbs 72.57 kg Age: 67 Gender: male BSA: 1.9 PROCEDURE(S) PERFORMED DC01-([id number])LHC/COR/LV CLINICAL PROFILE AND INDICATIONS Indications: Cardiac Arrythmia Heart Failure: None Stress/Imaging Stress/Image Study Performed: No CAD Presentations: No Sxs, no angina. CONCLUSIONS Non obstructive coronary arteries Mitral Valve Insufficiency Severe RECOMMENDATIONS Recommend MVR DESCRIPTION OF PROCEDURE The patient arrived to the procedure lab. The risks and benefits of the procedure as well as a full description of our services here and current unavailability of surgical backup were fully explained to the patient and/or their significant other prior to the catheterization. The Timeout was completed, verifying the correct patient and procedure. The patient's procedural site was prepped and draped in the usual fashion. Local anesthetic was given subcutaneously to right radial region with Lidocaine 2%. Using a modified Seldinger technique, arterial access was obtained via the right radial artery, a 6Fr sheath was inserted. Left Coronary Artery selective angiography was performed in multiple views using a 5 Fr. 4.0 [place] catheter. Right Coronary Artery selective angiography was then performed in multiple views using a 5 Fr. 4.0 [place] catheter. Left Ventriculography was performed in HAJI projection using a 5 Fr. [place] catheter.The arterial sheath was pulled and a TR Band was applied for hemostasis 8cc air CORONARY ANGIOGRAPHY DOMINANCE: Right Dominant LEFT HEART ASSESSMENT Left Ventricular Ejection Fraction: by LV Gram 45 % Global Hypokinesis - Mild Depressed Left Ventricular systolic function LEFT MAIN: Angiographically normal LEFT ANTERIOR DESCENDING ARTERY: No significant disease noted CIRCUMFLEX ARTERY: No significant disease noted RIGHT CORONARY ARTERY: No significant disease noted VALVE FINDINGS: Mitral Valve Insufficiency - Grade 3 COMPLICATIONS No Complications PROCEDURE MEDICATIONS Fentanyl 50 mcg IV Versed 1 mg IV Oxygen: 2 L/min via nasal cannula Aspirin (325mg) 1 Tabs PO @ 12/05/2022 11:09:58 Heparin given IA 12/05/2022 12:51:51 Verapamil 2.5mg, Ntg 100mcgs, 3000 units of Heparin given IA 12/05/2022 12:51:51 SUMMARY OF HEMODYNAMIC DATA Time AIR REST ECG 09:33:10 AO 98/73 (87) SA 13:03:56 LV 104/15, 18 13:08:25 LV 97/13, 20 13:08:31 LV 98/23, 28 13:09:12 LV 96/12, 17 13:09:28 LV 94/13, 16 13:09:34 LVp 99/10, 16 13:09:41 AOp 101/70 (82) 13:09:46 Signed By Sal Lake MD On 12/05/2022 14:40:56 Sal Lake MD
== END 2022-12-05 14:44 | disposition home or self-care (01) ==
LOC: CLSP 09:09
PROVIDERS: Physician Assistant Medical; PCP Nurse Practitioner Family; Referring Provider Internal Medicine Cardiovascular Disease; Visit Provider Internal Medicine Cardiovascular Disease
DX: I34.0 Nonrheumatic mitral (valve) insufficiency (principal); I48.91 Unspecified atrial fibrillation; K22.2 Esophageal obstruction; Z87.891 Personal history of nicotine dependence; Z82.49 Family history of ischemic heart disease and other diseases of the circulatory system
CPT/HCPCS: 36415; 80048; 85025; 93312; 93320; 93325; 93458; 99152; 99153; J7040; Q9967; A4216; C1769; C1894

== ENCOUNTER 2023-01-04 17:21 | Emergency (ER) | payer MEDICARE, SELFPAY ==
[2023-01-04 17:22] VITALS: BP 136/100; PULSE 95; RESP 19; TEMP 36.7; O2SAT 98; BMI 22.6
[2023-01-04 17:32] VITALS: PULSE 151
--- NOTE | 2023-01-04 18:05 | RAD_ITS ---
STUDY: X-RAY CHEST REASON FOR EXAM: Male, 67 years old. SOB TECHNIQUE: PA and lateral views of the chest. COMPARISON: 10/11/2022. FINDINGS: The lungs are clear and expanded. There is no demonstrated pleural abnormality. There is mild to moderate cardiac enlargement. Normal mediastinum and flavia. Normal visualized pulmonary arteries. Normal visualized aortic arch and descending thoracic aorta. Mild spondylosis of thoracic spine. Normal visualized ribs, clavicles, and shoulders. There is no demonstrated abnormality of the visualized soft tissue structures of the upper abdomen. RAD/Chest PA and Lateral IMPRESSION: Mild to moderate cardiomegaly, otherwise no acute cardiac pulmonary disease. Electronically Signed: Nichole Qiu MD at 18:47 EDT ,
[2023-01-04 18:22] LABS: Absolute Lymphocyte Count 2.38 X10^3/uL (0.83-4.51); Absolute Neutrophil Count 5.2 X10^3/uL (2.0-7.7); Basophil# 0.05 X10^3/uL; Basophil% 0.6 % (0-1); Eosinophil# 0.17 X10^3/uL; Eosinophils% 1.9 % (0-5); Hematocrit 41.9 % (40-54); Hemoglobin 14.3 g/dL (13.0-16.5); Lymphocyte # 2.38 X10^3/ul (0.83-4.51); Mean Corp Hgb Conc 34.1 g/dL (32-36); Mean Corpuscular Hgb 30.8 pg (27.0-32.0); Mean Corpuscular Volume 90.3 fL (80-94); Mean Platelet Vol. 13.7 fl (6.2-12.0); Monocyte# 0.95 X10^3/uL; Monocyte% 10.8 % (0-10); NRBC Flagged by Analyzer 0 % (0-5); Neutrophil # 5.24 X10^3/uL (2.7-7.7); Neutrophil % 59.5 % (47-70); Platelet Count 110 K/mm3 (150-450); RBC Distribution Width CV 14.1 % (11.6-14.6); RBC Distribution Width SD 46.5 fl (35.1-43.9); Red Blood Count 4.64 M/mm3 (4.6-6.2); White Blood Count 8.8 K/mm3 (4.4-11.0)
--- NOTE | 2023-01-04 18:22 | EDS_ITS ---
HPI History of Present Illness Chief Complaint: Shortness of Breath Informant: patient Narrative Narrative: Cough and scratchy throat for the last day. Patient states that he was exposed to a lot of dust from 1930 his house yesterday. He should have used a mask. But ever since then he has been coughing. He brings up clear sputum. No fevers or chills. He denies chest pain. He does state sometimes he feels a little bit winded but this is not that uncommon for him anyway because of his atrial fibrillation. He is on Eliquis and taking it. He is on diltiazem but has missed a dose and he is actually overdue for a dose already today. He evidently was switched to another medicine a couple weeks ago for rate control and may have been metoprolol. He felt terrible on this. He is now back on diltiazem. He also takes Lasix. It sounds like he may have mitral valve dysfunction but does not need surgery at this point. He denies any known congestive heart failure. He denies COPD. He states over the last day or 2 you he has heard occasionally a little bit of a wheeze but that is not typical for him. He has no leg pain or swelling. No fevers or chills. Although his heart rate is currently in the 140s he does not feel that. But he feels that is due to being overdue for his medicine and and having missed at least 1 dose probably yesterday. When he came in the to the department he had a slower heart rate recorded initially. [facility] Medical History Atrial fibrillation, new onset Femur fracture Mitral regurgitation Home Medications furosemide 40 mg tablet 40 mg PO DAILY #90 tabs 12/15/22 [Rx Last Taken Unknown] apixaban 5 mg tablet (Eliquis) 5 mg PO DAILY 01/04/23 [History Last Taken Unknown] diltiazem HCl 60 mg tablet 60 mg PO Q6H 01/04/23 [History Last Taken Unknown] Allergy/AdvReac Type Severity Reaction Status Date / Time No Known Allergies Allergy Verified 11/18/22 09:33 Family History Father CAD (coronary artery disease) S/P CABG x 3 Heart valve replaced Surgical History Hip joint replacement by other means Social History Smoking Status: Former smoker alcohol intake: current alcohol intake frequency: a few times a week details: cut back to 1 or 2 a week was 1 every day substance use type: does not use caffeine: Yes Type: coffee Number of servings: 1 ROS ROS ED ROS Narrative A complete review of systems was performed and is negative except as documented in the history of present illness. Some specific details below. Constitutional: No recent fevers or chills. Malaise. EYE: No discharge, visual complaints, or pain. ENT: No difficulty swallowing. No swelling. No pain. No reflux symptoms. CV: See history of present illness. Does not have palpitations or chest pain. He does have some mild dyspnea. Respiratory: See history of present illness. GI: No abdominal pain. No nausea vomiting diarrhea. No blood in stool. : No frequency dysuria or hematuria. Musculoskeletal: No recent trauma. No pains. No swelling. Skin: No rash. Nondiaphoretic. Neuro: No weakness or numbness. Endocrine: No polyuria or polydipsia. EXAM Physical Exam Narrative Exam Narrative: CONSTITUTIONAL: Patient is nontoxic in appearance. The patient looks comfortable. Work of breathing looks normal. HEENT: No notable trauma. Mucous membranes moist. No sinus tenderness. No indication of pain with swallowing. Have a slightly raspy voice but examination of his pharynx is normal. EYES: No conjunctival injection. No proptosis. NECK:No JVD. No stridor. CARDIOVASCULAR: Tachycardic rate. Irregularly irregular rhythm. No notable murmur. No JVD. RESPIRATORY: No respiratory distress. Breathing is unlabored. No wheezes time despite his history of occasionally hearing them.. No rhonchi. No rales. No pain with a deep breath. No chest wall tenderness. Durations are normal at 98% on room air showing no hypoxia. GASTROINTESTINAL: Not distended. Bowel sounds are normal. No tenderness. No guarding. No rebound. No palpable mass. No bruit is heard. GENITOURINARY: No tenderness over the bladder. No CVA tenderness. MUSCULOSKELETAL: Atraumatic. No peripheral edema. No cord. No tenderness along the deep venous system. No asymmetry. No distended veins. NEUROLOGICAL: Patient is alert and appropriate. No focal deficit noted. SKIN: No noted rashes. No diaphoresis. PSYCHIATRIC: Patient is calm. Mood is appropriate. Const Vital Signs: 01/04/23 17:22 01/04/23 17:32 01/04/23 17:33 Temperature 98.1 F Temperature Source Temporal Pulse Rate 95 151 H Respiratory Rate 19 H Respiratory Effort Normal Non-Labored Respiratory Depth Normal Respiratory Pattern Normal Blood Pressure 136/100 H Blood Pressure Mean 112 Pulse Ox 98 Oxygen Delivery Method Room Air 01/04/23 17:34 01/04/23 19:22 01/04/23 20:01 Temperature Temperature Source Pulse Rate 110 H 122 H Respiratory Rate 17 97 H Respiratory Effort Normal Non-Labored Respiratory Depth Respiratory Pattern Blood Pressure 124/91 H 117/92 H Blood Pressure Mean 102 100 Pulse Ox 97 18 Oxygen Delivery Method Room Air Room Air MDM MDM MDM Narrative Medical decision making narrative: My independent interpretation the patient's single AP chest x-ray shows cardiomegaly. But this does look to be similar to 10/11/2022. Final reading is similar. CBC shows no acute process. Patient's electrolytes show minimal elevation of chloride and glucose but preserved renal function. Marked abnormalities. Patient's liver function test is normal normal. Patient's troponin is negative. Patient's BNP is elevated 891. I think his high BNP might be some of his symptoms. He states he does cough more if he lays down. No weight gain. But he does have cardiomegaly valvular dysfunction and atrial fibrillation. I will give him another dose of Lasix. He missed some meds yesterday but I do not know if those were the diltiazem Lasix or both of them. He states he did get his Eliquis in. Despite his tachycardia he is actually feeling well. We gave him a dose of diltiazem here as he had missed his dose. He is now down to 90?105 and heart rate. And feels good. His saturations are normal. He would like to go home. I now find out from the patient that he had cut back on his Lasix. He states he guesses he should not have done that. I explained that it is very important that he takes his diltiazem, Lasix and Eliquis as it is prescribed. He feels better with Lasix given here. He has had at least 2 L of urine out. He can lay down now without coughing. I think his symptoms are likely due to some mild CHF but also likely due to the dust exposure. We will get him. This is a reasonable option since he is not hypoxic. We will get him back on his regular doses of meds. We discussed increasing the Lasix for the next couple days and then going back to his 40 a day. He had cut it back to 20 a day or occasionally missing dosages and I think this contributed to his symptoms. Lab Data Attestation: I reviewed the patient's lab results. Labs: Laboratory Results - last 24 hr 01/04/23 17:36 WBC 8.8 RBC 4.64 Hgb 14.3 Hct 41.9 MCV 90.3 MCH 30.8 MCHC 34.1 RDW Std Deviation 46.5 H RDW Coeff of Jacqueline 14.1 Plt Count 110 L MPV 13.7 H Immature Gran % (Auto) 0.200 Neut % (Auto) 59.5 Lymph % (Auto) 27.0 [place] % (Auto) 10.8 H Eos % (Auto) 1.9 Baso % (Auto) 0.6 Absolute Neuts (auto) 5.2 Absolute Lymphs (auto) 2.38 Nucleated RBC % 0 Sodium 137 Potassium 4.1 Chloride 109 H Carbon Dioxide 21.0 Anion Gap 7 BUN 18 Creatinine 0.95 Estim Creat Clear Calc 75.11 Est GFR (MDRD) Af Amer 101 Est GFR (MDRD) Non-Af 84 BUN/Creatinine Ratio 18.9 Glucose 120 H Calcium 8.5 Total Bilirubin 1.00 AST 23 ALT 33 Alkaline Phosphatase 87 Troponin I High Sens 25 B-Natriuretic Peptide 891.1 H Total Protein 6.7 Albumin 3.5 Globulin 3.2 Albumin/Globulin Ratio 1.1 Radiography Diagnostic Testing: Clinical Impression(s) from Imaging Studies Chest X-Ray 01/04/23 18:05 IMPRESSION: Mild to moderate cardiomegaly, otherwise no acute cardiac pulmonary disease. Electronically Signed: Nichole Qiu MD at 18:47 EDT , EKG Initial EKG: Comments: Independent interpretation of the patient's EKG shows atrial fibrillation with rapid ventricular rate about 132. There is sign of LVH. He has occasional PVC. QRS duration and QTc are normal. Discharge Plan Triage Chief Complaint: Shortness of Breath ED Provider: Brandon Mustafa Dx/Rx/DC Orders Clinical Impression: Congestive heart failure, Cough Instructions: ED Heart Failure, Congestive (CHF) Prescriptions: No Action diltiazem HCl 60 mg tablet 60 mg PO Q6H Patient Comments: Take one tablet by mouth every 6 hours as needed for pain. Eliquis 5 mg Tablet 5 mg PO DAILY furosemide 40 mg tablet 40 mg PO DAILY Qty: 90 3RF Primary Care Provider: Poppy Uribe NP Referrals: Sal Lake MD [Med Staff - Active Staff] - 3-5 Days Poppy Uribe NP, [facility] [employer] [Primary Care Provider] - 3-5 Days Disposition Disposition: Home, Self Care
[2023-01-04] MEDS: dilTIAZem 25 MG/5 ML Vial 20 MG IV BOLUS (18:25)
--- NOTE | 2023-01-04 18:28 | EKG12_ITS ---
Test Reason : Blood Pressure : / mmHG Vent. Rate : 132 BPM Atrial Rate : 000 BPM P-R Int : 000 ms QRS Dur : 104 ms QT Int : 258 ms P-R-T Axes : 000 -12 103 degrees QTc Int : 382 ms Atrial fibrillation with rapid ventricular response with premature ventricular or aberrantly conducte d complexes Minimal voltage criteria for LVH, may be normal variant ( Sokolow-Hernandez ) ST & T wave abnormality, consider lateral ischemia Abnormal ECG Confirmed by CECILE VALERIO, TUNDE ([id number]), loan expeditor JULIÁN FERNANDEZ ([id number]) on 01/06/2023 1:52:59 PM Referred By: HILLARY Confirmed By:TUNDE HUBER MD
[2023-01-04 18:33] LABS: ALB/GLOB Ratio 1.1 RATIO (0.9-2.4); AST(SGOT) 23 U/L (15-37); Alanine Aminotransfer ALT/SGPT 33 U/L (16-61); Albumin, Serum 3.5 g/dL (3.2-5.0); Alkaline Phosphatase 87 U/L (45-117); Anion Gap 7 (5-15); BUN 18 mg/dL (7-18); BUN/Creat Ratio 18.9 RATIO (10-20); Calcium,Total 8.5 mg/dL (8.5-10.1); Chloride 109 mmol/L (98-107); Creatinine, Serum 0.95 mg/dL (0.70-1.30); EST Glomerular Filtration Rate 84 mL/min (>60); Est Glom Filt Rate - Afr Amer 101 mL/min (>60); Estimated Creatinine Clearance 75.11 ml/min; Globulin 3.2 g/dL (2.2-4.2); Glucose 120 mg/dL (74-106); Potassium 4.1 mmol/L (3.5-5.1); Protein, Total 6.7 g/dL (6.4-8.2); Sodium Level 137 mmol/L (136-145)
[2023-01-04 18:48] LABS: Troponin-I HS 25 pg/mL (3.0-78.0)
[2023-01-04 18:51] LABS: BNP,B-Type NATRIURETIC PEPTIDE 891.1 pg/mL (0-100)
[2023-01-04 19:22] VITALS: BP 124/91; PULSE 110; RESP 17; O2SAT 97
[2023-01-04] MEDS: Furosemide 40 MG/4 ML Vial IV (19:31)
[2023-01-04 20:01] VITALS: BP 117/92; PULSE 122; RESP 97; O2SAT 18
[2023-01-04 21:17] VITALS: BP 124/89
== END 2023-01-04 21:19 | disposition home or self-care (01) ==
PROVIDERS: Emergency Provider Emergency Medicine; PCP Nurse Practitioner Family; Visit Provider Emergency Medicine
DX: I50.9 Heart failure, unspecified (principal); I48.91 Unspecified atrial fibrillation; Z87.891 Personal history of nicotine dependence; Z79.01 Long term (current) use of anticoagulants; Z96.649 Presence of unspecified artificial hip joint; R05.9 Cough, unspecified
CPT/HCPCS: 71046; 80053; 83880; 84484; 85025; 93005; 96374; 96375; 99283; A4216; J1940

== ENCOUNTER 2023-01-07 16:01 | Emergency (ER) | payer MEDICARE, SELFPAY ==
[2023-01-07 16:02] VITALS: BP 135/85; PULSE 46; RESP 16; TEMP 36.2; O2SAT 98; BMI 22.5
--- NOTE | 2023-01-07 16:30 | EKG12_ITS ---
Test Reason : SOB/TACHYCARDIA Blood Pressure : / mmHG Vent. Rate : 116 BPM Atrial Rate : 000 BPM P-R Int : 000 ms QRS Dur : 112 ms QT Int : 340 ms P-R-T Axes : 000 -12 099 degrees QTc Int : 472 ms Accelerated Junctional rhythm with occasional Premature ventricular complexes and Fusion complexes Incomplete left bundle branch block Nonspecific T wave abnormality Abnormal ECG Confirmed by CECILE VALERIO, TUNDE ([id number]), video news editor JULIÁN FERNANDEZ ([id number]) on 01/16/2023 7:19:41 AM Referred By: YAO Confirmed By:TUNDE HUBER MD
--- NOTE | 2023-01-07 16:36 | EDS_ITS ---
HPI History of Present Illness Chief Complaint: Shortness of Breath Narrative Narrative: Patient has history of fibrillation and CHF as well as mitral regurgitation, he is feeling somewhat short of breath and he is feeling palpitations. He is on oral Cardizem and he was taking 1-1/2 tablets with 90 mg every 6 hours, 2 days ago he went back to 60 mg to 6 hours. He feels like his Lasix is not working because he feels short of breath he thinks there may be fluid in his lungs. He has no fevers or chills. No cough or congestion. No lower extremity edema. [facility] Medical History Atrial fibrillation, new onset Femur fracture Mitral regurgitation Home Medications furosemide 40 mg tablet 40 mg PO DAILY #90 tabs 12/15/22 [Rx Last Taken Unknown] apixaban 5 mg tablet (Eliquis) 5 mg PO DAILY 01/04/23 [History Last Taken Unknown] diltiazem HCl 60 mg tablet 60 mg PO Q6H 01/04/23 [History Last Taken Unknown] Allergy/AdvReac Type Severity Reaction Status Date / Time No Known Allergies Allergy Verified 01/07/23 16:02 Family History Father CAD (coronary artery disease) S/P CABG x 3 Heart valve replaced Surgical History Hip joint replacement by other means Social History Smoking Status: Former smoker alcohol intake: current alcohol intake frequency: a few times a week details: cut back to 1 or 2 a week was 1 every day substance use type: does not use caffeine: Yes Type: coffee Number of servings: 1 ROS ROS ED ROS Narrative Past medical history: Reviewed Medications: Reviewed Social history: Noncontributory Review of systems: All systems negative except as indicated General: No fever Eyes: No visual changes ENT: No upper airway congestion, normal voice Neck: No neck pain Cardiovascular: Patient's. Respiratory: Some shortness of breath Gastrointestinal: No abdominal pain, nausea vomiting or diarrhea Genitourinary: No dysuria Musculoskeletal: Denies myalgias no difficulty with ambulation Skin: No rash Neurological: No memory loss, confusion or any focal weakness EXAM Physical Exam Narrative Exam Narrative: Physical exam General: Well nourished, Well developed, No Acute Distress Head: Normocephalic, Atraumatic Eyes: Conjunctiva not pale ENT: Moist mucous membranes Neck: Supple, Nontender, No lymphadenopathy Cardiovascular: Irregular tachycardia. I do not appreciate the MR murmur at this time. The room is quite loud. Respiratory: There are bilateral breath sounds no respiratory distress cannot appreciate any rhonchi. Abdomen: Soft, Nontender, Nondistended Back: Nontender, Normal Inspection. Negative for: CVA tenderness Extremities: Nontender, No edema Skin: Normal color, No rash Const Vital Signs: 01/07/23 16:02 01/07/23 16:47 01/07/23 16:55 Temperature 97.2 F L Temperature Source Temporal Pulse Rate 46 L 104 H Respiratory Rate 16 16 Respiratory Effort Short of Breath Blood Pressure 135/85 H 103/83 H Blood Pressure Mean 101 89 Pulse Ox 98 98 Oxygen Delivery Method Room Air Room Air 01/07/23 17:22 Temperature Temperature Source Pulse Rate 104 H Respiratory Rate 18 Respiratory Effort Blood Pressure 118/71 Blood Pressure Mean 86 Pulse Ox 97 Oxygen Delivery Method Room Air MDM MDM MDM Narrative Medical decision making narrative: EKG. A atrial fibrillation with a rate of 116. QTc is 472. Nonspecific intraventricular conduction delay looks like an incomplete left bundle branch block. Nonspecific ST changes likely rate related. Interpreted by emergency doctor. Telemetry: A-fib with a rate in the 100s with some ectopy Chest x-ray: Chest x-ray 1 view interpreted by emergency doctor as normal MDM: Patient is given Cardizem. His heart rate improved. He has no obvious signs of CHF, natruretic peptide slightly elevated but lungs are clear x-ray is normal and there is no lower extremity edema. We will not increase Lasix however he apparently decreased his Cardizem and now his heart rate is fast again, we will increase it again to 90 mg 4 times a day. Otherwise he needs to follow-up with cardiology. Breathing changes he is to return. I talked to son who also gave me some of the history. Lab Data Labs: Laboratory Results - last 24 hr 01/07/23 16:58 WBC 7.1 RBC 4.28 L Hgb 13.1 Hct 39.1 L MCV 91.4 MCH 30.6 MCHC 33.5 RDW Std Deviation 46.5 H RDW Coeff of Jacqueline 13.9 Plt Count 117 L MPV 12.6 H Sodium 140 Potassium 3.7 Chloride 111 H Carbon Dioxide 23.0 Anion Gap 6 BUN 23 H Creatinine 1.17 Estim Creat Clear Calc 60.87 Est GFR (MDRD) Af Amer 80 Est GFR (MDRD) Non-Af 66 BUN/Creatinine Ratio 19.7 Glucose 104 Calcium 8.7 Total Bilirubin 0.90 AST 21 ALT 30 Alkaline Phosphatase 80 B-Natriuretic Peptide 696.2 H Total Protein 6.3 L Albumin 3.3 Globulin 3.0 Albumin/Globulin Ratio 1.1 Radiography Diagnostic Testing: Clinical Impression(s) from Imaging Studies Chest X-Ray 01/07/23 17:05 IMPRESSION: Nonacute portable x-ray examination of the chest. Electronically Signed: Erick Kaufman MD ([place]) at 17:14 EDT Reading Location ID and State: [facility] / [place] , Service support , Discharge Plan Triage Chief Complaint: Shortness of Breath ED Provider: Clifton Donohue Dx/Rx/DC Orders Clinical Impression: CHF (congestive heart failure), Atrial fibrillation, Tachycardia Prescriptions: No Action diltiazem HCl 60 mg tablet 60 mg PO Q6H Patient Comments: Take one tablet by mouth every 6 hours as needed for pain. Eliquis 5 mg Tablet 5 mg PO DAILY furosemide 40 mg tablet 40 mg PO DAILY Qty: 90 3RF Primary Care Provider: Poppy Uribe NP Referrals: Sal Lake MD [Med Staff - Active Staff] - 3-5 Days Poppy Uribe NP, PATIENT SERVICES ASSISTANT-C [Primary Care Provider] - Disposition Disposition: Home, Self Care
[2023-01-07 16:47] VITALS: BP 103/83; PULSE 104; RESP 16; O2SAT 98
[2023-01-07] MEDS: dilTIAZem 25 MG/5 ML Vial 10 MG IV BOLUS (16:51)
[2023-01-07 17:03] LABS: Hematocrit 39.1 % (40-54); Hemoglobin 13.1 g/dL (13.0-16.5); Mean Corp Hgb Conc 33.5 g/dL (32-36); Mean Corpuscular Hgb 30.6 pg (27.0-32.0); Mean Corpuscular Volume 91.4 fL (80-94); Mean Platelet Vol. 12.6 fl (6.2-12.0); Platelet Count 117 K/mm3 (150-450); RBC Distribution Width CV 13.9 % (11.6-14.6); RBC Distribution Width SD 46.5 fl (35.1-43.9); Red Blood Count 4.28 M/mm3 (4.6-6.2); White Blood Count 7.1 K/mm3 (4.4-11.0)
--- NOTE | 2023-01-07 17:05 | RAD_ITS ---
STUDY: X-RAY CHEST REASON FOR EXAM: Male, 67 years old. sob TECHNIQUE: AP COMPARISON: 01/04/2023 FINDINGS: Sternal wires and mediastinal surgical clips compatible with prior CABG. The lungs are clear and expanded. There is no demonstrated pleural abnormality. There is mild cardiac enlargement. Normal mediastinum and flavia. Normal visualized pulmonary arteries. Normal visualized aortic arch and descending thoracic aorta. Normal visualized thoracic spine. Normal visualized ribs, clavicles, and shoulders. There is no demonstrated abnormality of the visualized soft tissue structures of the upper abdomen. RAD/Chest 1 View (Portable) IMPRESSION: Nonacute portable x-ray examination of the chest. Electronically Signed: Erick Kaufman MD ([place]) at 17:14 EDT ,
[2023-01-07 17:20] LABS: BNP,B-Type NATRIURETIC PEPTIDE 696.2 pg/mL (0-100)
[2023-01-07 17:22] VITALS: BP 118/71; PULSE 104; RESP 18; O2SAT 97
[2023-01-07 17:22] LABS: ALB/GLOB Ratio 1.1 RATIO (0.9-2.4); AST(SGOT) 21 U/L (15-37); Alanine Aminotransfer ALT/SGPT 30 U/L (16-61); Albumin, Serum 3.3 g/dL (3.2-5.0); Alkaline Phosphatase 80 U/L (45-117); Anion Gap 6 (5-15); BUN 23 mg/dL (7-18); BUN/Creat Ratio 19.7 RATIO (10-20); Calcium,Total 8.7 mg/dL (8.5-10.1); Chloride 111 mmol/L (98-107); Creatinine, Serum 1.17 mg/dL (0.70-1.30); EST Glomerular Filtration Rate 66 mL/min (>60); Est Glom Filt Rate - Afr Amer 80 mL/min (>60); Estimated Creatinine Clearance 60.87 ml/min; Glucose 104 mg/dL (74-106); Potassium 3.7 mmol/L (3.5-5.1); Protein, Total 6.3 g/dL (6.4-8.2); Sodium Level 140 mmol/L (136-145)
== END 2023-01-07 18:23 | disposition home or self-care (01) ==
PROVIDERS: Emergency Provider Emergency Medicine; PCP Nurse Practitioner Family; Visit Provider Emergency Medicine
DX: I48.91 Unspecified atrial fibrillation (principal); I50.9 Heart failure, unspecified; Z87.891 Personal history of nicotine dependence; R00.0 Tachycardia, unspecified; Z79.899 Other long term (current) drug therapy; Z79.01 Long term (current) use of anticoagulants
CPT/HCPCS: 71045; 80053; 83880; 85027; 93005; 96374; 99282; A4216

== ENCOUNTER → 2023-03-14 | Outpatient (CLI) | payer MEDICARE, SELFPAY ==
[2023-03-17 18:07] LABS: G6PD Quant Test 291 (127-427); Red Blood Cell Count Test/G6PD 3.91 x10E6/uL (4.14-5.80)
== END | disposition home or self-care (01) ==
LOC: LABSPEC 12:53
PROVIDERS: PCP Nurse Practitioner Family; Visit Provider Nurse Practitioner Family
DX: A44.0 Systemic bartonellosis (principal)
CPT/HCPCS: 82955

== ENCOUNTER → 2023-03-31 | Outpatient (CLI) | payer MEDICARE, SELFPAY ==
--- NOTE | 2023-03-31 10:34 | PCM.CR.HP2 ---
CR - History & Physical General Arrival date:: 03/31/23 Arrival time:: 10:34 Date of Referral:: 03/27/23 Date of CR Evaluation:: 03/31/23 Referring Physician: Dr. Sal Lake Primary Diagnosis: heart valve repair-replacement History of Present Cardiac Event Onset Date Heart valve replacement or repair:: Yes (02/23/2023) Medications Ambulatory Orders Medication Instructions Recorded apixaban 5 mg tablet (Eliquis) 5 mg PO BID 01/12/23 amiodarone 200 mg tablet 200 mg PO DAILY 03/27/23 aspirin 81 mg tablet,delayed 81 mg PO DAILY 03/27/23 release (Adult Low Dose Aspirin) ferrous sulfate 137 mg (45 mg mg PO DAILY 03/27/23 iron) tablet,extended release (Slow Fe) metoprolol succinate 25 mg 12.5 mg PO DAILY 03/27/23 tablet,extended release 24 hr multivitamin 1 tab PO DAILY 03/27/23 rosuvastatin 20 mg tablet 20 mg PO DAILY 03/27/23 Allergies Allergies No Known Allergies Allergy (Verified 03/27/23 08:29) Sleep Disorder Evaluation Hx of Sleep Apnea: No Do you snore loudly (louder than talking or can be heard through closed doors)?: No Do you often feel tired/ fatigued/ sleepy during daytime?: No Has anyone observed you stop breathing during sleep?: No History of Hypertension (for STOP score): No STOP Results: Negative Advanced Directives Advanced Directives Power of Computer Operator: No Living Will: No Advance Directives Information Provided: No Advance Directives on File: No DNR Order?:: No Past Medical History Covid-19 Screening Physicial Symptoms Other Clinical Concerns Exposure Risk Pertinent Comorbidities 65 years or older:: Yes Has a serious heart condition:: Yes Past Medical Illness Past Medical History Atrial fibrillation, new onset I48.91 Femur fracture S72.90XA Mitral regurgitation I34.0 Past Surgical History Past Surgical History (Updated 03/27/23 @ 09:43 by Adelina Cotter RN) H/O mitral valve repair Z98.890 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 Hx of maze procedure Z98.890 Surgical History: total hip arthroplasty (bilateral) Family History Summary Family History (Reviewed 03/27/23 @ 09:17 by Fazal Fallon BRIM POUNCER MACHINE OPERATOR, BRIM POUNCER MACHINE OPERATOR-C) Father CAD (coronary artery disease) S/P CABG x 3 Heart valve replaced Social History Smoking History Hx Tobacco Use: No Alcohol Use Alcohol Usage: Yes (1 beer 2-3X/week) Occupation Occupation (List type of work in comments):: Retired Hobbies, Recreation, Social Activities Hobbies: Other (camping, woodworking, work) Recreational Activities: I am able to engage in most, but not all activities Social Environment Status Marital Status: Current Living Arrangements Living Environment:: Spouse Children How many children do you have?: 4 Do any of your children live nearby?: Yes Safety Do you feel safe in your surroundings?: Yes Assistance Do you need any assistance at home?: no Review of Systems Review of Systems Hints Review of Present Symptoms: Reports Operative Discomfort, Appetite - Normal, Appetite - Special Diet and Sleep - Normal; Denies Shortness of Breath at Rest, Shortness of Breath with Exertion, PVD, Angina, Wound Healing, Dizziness/Lightheadedness, Fatigue, Heart Arrhythmia/Irregularities or Sexual Changes Pain Is Patient Pain Free?: Yes Risk Factor Assessment Vital Signs Blood Pressure: 129/70 Pulse Pulse Rate: 87 Obesity Height: 5 ft 10 in Weight:: 146 lb Weight in Pounds: 146.0 lbs Body Mass Index (BMI): 20.9 Physical Inactivity Physical Inactivity: Reg Exercise 30 min/day Risk Stratification Risk Guidelines: Lowest Risk: Risk Factor for Smoking, Risk Factor for Dyslipidemia, Risk Factor for Diabetes, Risk Factor for Obesity, Risk Factor for Hypertension, Risk Factor for Sedentary Lifestyle and Risk Factor for Depression For Smoking Smoking Risk Guidelines For Dyslipidemia Dyslipidemia Risk Guidelines For Diabetes Mellitus Diabetes Risk Guidelines For Obesity/Overweight Obesity/Overweight Risk Guidelines For Hypertension Hypertension Risk Guidelines For Sedentary Lifestyle Sedentary Lifestyle Risk Guidelines For Depression Depression Risk Guidelines Family History Family History Father CAD (coronary artery disease) S/P CABG x 3 Heart valve replaced Motivation Motivation to Participate On a scale of 1 to 10, how prepared are you to commit to attending program?: 8 What do you see as barriers to successfully being able to complete the program?: no What do you see as the benefits of succesfully completing the program? In other words, what do you hope to get out of participating in the program?: more energy, strength Are there issues you are dealing with that will interfere with completing the program?: no Do you have a spouse or signficant other, family or friends who will help support you to complete the program?: yes
[2023-03-31 10:47] VITALS: BP 129/70; PULSE 87; BMI 20.9
--- NOTE | 2023-03-31 11:10 | PCM.CR.ITP ---
Diagnosis General Information Admitting Diagnosis: hear valve repair-replacement Personal Learning Style:: Audio/Visual Stage of change r/t lifestyle modifications:: Contemplation Gave educational material for:: Treating Heart Disease, How The Heart Works, What it means to have Heart Disease, How Coronary Artery Disease is Diagnosed, Heart Procedures, What Heart Medications Do, Risk Factors & Modifications, Living an Active Life, Nutrition, Emotions & Heart Disease, Stress Management & Relaxation and Sleep Disorders & Heart Disease Education/Goals Cardiac Rehabilitation Goals Personal Goals: Initial Assessment: Improve energy level, Participate in home exercise program, Get back to work, or to resume activities faster and Improve muscle strength and endurance Scale for measuring improvement of personal goals Diagnosis & Disease Process Outcomes/Goals: Pt IDs own risk factors & lifestyle modifications by Session 10, Verbalizes symptoms of angina & response by session 3., Pt independently manages and Other Additional Outcomes/Goals: Exercise - Initial Assessment Visit Date of Eval: 03/31/23 (initial eval) Mets: Pre-: >3 METS for 30 minutes by discharge, >5 METS for 30 minutes by discharge, >7 METS for 30 minutes by discharge and Unable to meet goal due to: (see comment below) Physician Prescribed Exercise Modalities: Treadmill, Airdyne, NuStep, SciFit and Lateral [place] Frequency: 3x/week for 12 weeks [36 sessions] Intensity: 60-80% of age predicted maximum heart rate reserve Duration: 30 - 45 minutes Current METSs:: 3 Target Heart Rate:: 91-114 Resting Blood Pressure: 129/70 EKG Type: SR with frequent ectopic ventricular beats Outcomes & Goals Goals:: Verbalizes understanding of THR, RPE & goal METS by session 6, Documents in home exercise log/reports 30 min aerobic 5 day/wk by DC, Demonstrates accurate pulse taking by DC and Other additional outcome/goals: see below Intervention & Plan Exercise Program Goals: Instruct on personal THR & RPE, Instruct on MET level & personal MET goal, Show patient to take own pulse /validate performance until accurate, Instruct on home exercise and Other additional plan/int Physical Activity Home Exercise Physical Activity - Home Exercise: Safe Exercise, Warm-up, Self-monitoring, Cool-Down, Home Exercise > 30 min Daily and Sitting Time <3 hours/daily Outcomes & Goals Outcomes/Goals: Demonstrates correct Warm-up/exercise Cool-Down (S3) if = 2.5 METs, Verbalizes symptoms of exercise intolerance by Session 3 (S3), Demonstrate safe equipment use (S3) & follows exercise prescrition (6) and Other: See below Intervention & Plan Plan/Intervention: Instruct warm-up & cool-down if exercising at > 2 METs, Instruct on symptoms of exercise intolerance & actions to take, Instruct & monitor on saf, Assess intial functional capacity & safety risk and Other See below Nutrition - Initial Assessment Visit Date of Eval: 03/31/23 (initial eval ) Cholesterol/Lipids (Other Core Measures) Determine presence & major risk factors that modify LDL goal: Hypertension or hypertensive medication, Low HDL cholesterol <40 mg/dL*, Family history of premature CHD in Male < 55 years: female <65 yearsFa and Age men > 45 years; women >/= 55 years Outcomes/Goals: Pt IDs own risk factors & lifestyle modifications by Session 10, Verbalizes symptoms of angina & response by session 3., Pt independently manages and Other Additional Outcomes/Goals: Intervention/Plan: Advocate for lipid panel cholesterol medication if applicable, Instruct on personal lipid levels & lipid goals/NCEP guidelines, Instruct on cholesterol and Other additional plan/int Referral to dietitian:: No Diabetes (Other Core Measures) Diabetes Type: Not Applicable Weight Mgt (Other Care) Height: 5 ft 10 in Weight:: 146 lb BMI: 20.9 Diagnosis Overweight/Obesity BMI> 30% ICD-10 E66: No Diagnosis High BMI/Morbid Obesity BMI> 35% ICD-10 Z68: No Outcomes/Goals: Pt sets, maintains & shows weight loss goal & trend during rehab and Other additional outcomes/goals Intervention/Plan: Instruct on ideal BMI & set weight loss goal w/patient, Assist pt to ID & incorporate diet changes for weight loss by S9, Refer to Structured Weight Loss program as appropriate, Encourage goal of using 250-300dcal per session for weight loss and Other additional plan/interventions Healthy Eating Habits Will attend diet classes:: Yes Outcomes/Goals:: Consume diet rich in vegs,fruits,whole grain/high fiber,fish,lean meat, Limit sat/trans fats,cholesterol & added salts & sugars and Other additional outcome/goals: Intervention/Plan:: Assess current eating habits and Other Additional plan/interventions Education Gave educational materials for:: Signs & symptoms of hypoglycemia, Signs & symptoms of hyperglycemia, Relate diabetes to coronary artery disease and Healthy eating Core - Initial Assessment Visit Date of Eval: 03/31/23 (initial eval ) Medication Compliance Preventative Medication(s):: Aspirin, Beta tona and Eliquis H/O mental health issues: depression, anxiety, or addiction?: No Doesn?t believe in the benefits of treatment?: No Believes medications are unnecessary or harmful?: No Has a concern about medication side effects?: No Expresses concern over the cost of medications?: No Outcomes/Goals: Verbalizes medications,desired effect & common side effects @ DC, Pt self-reports following medication regimen, Keeps card in wallet w/medications listed by DC and Other additional outcome/goals: Interventions/plans: Instruct on medication effects & side effects, Review medication list w/patient every two weeks, Instruct importance of taking meds as ordered & assist problem solving and Other additional Tobacco Use Tobacco Use: Non-smoker Hypertension Resting Blood Pressure:: 129/70 [place] [employer] Hypertension Guidelines Outcomes/Goals: Able to verbalize/achieve optimal blood pressure <130/80, Incorporates diet changes & exercise for blood pressure control by DC and Other additional outcomes/goals Interventions/plan: Instruct on optimal blood pressure, hypertension & medications, Instruct on effects of sodium, alcohol, stress, exercise &hypertension and Other additional plan/interventions Tobacco Cessation Referral Smoking Cessation Referral:: No Individual Education/Counseling:: No Education Schedule Given:: Yes Psychosocial - Initial Assess VIsit Date of Eval: 03/31/23 (initial eval ) History of previous Mental disease:: No Target Goals Target Goals Outcomes/Goals: See list Psychosocial Outcomes/Goals:: ID's personal stressors & 2 strategies to manage stress by discharge and Other Additional outcome/goals: Intervention/Plan: See List Interventions/Plan:: Assess stressors,coping strategies & signs of derpression on admission, Instruct/assist pt to develop coping & personal stress Mgt strategies, Refer to Behavioral Health if appropriate, Refer to Physician if appropriate, Instruct patient to recognize signs & symptoms of depression, Instruct patient to recog and Other additional plan/intervention Patient Health Questionnaire PHQ-9 Screening Initial Assessment: 1. Little interest or pleasure in doing things: Not at all 2. Feeling down, depressed, or hopeless: Not at all 3. Trouble falling or staying asleep, or sleeping too much: Not at all 4. Feeling tired or having little energy: Several days 5. Poor appetite or overeating: Not at all 6. Feeling bad about yourself -- or that you are a failure or have let yourself or your family down: Not at all 7. Trouble concentrating on things, such as reading the newspaper or watching television: Not at all 8. Moving or speaking so slowly that other people could have noticed. Or the opposite - being so fidgety or restless that you have been moving around a lot more than usual: Not at all 9. Thoughts that you would be better off , or of hurting yourself in some way: Not at all How difficult have these problems made it for you to do your work, take care of things at home, or get along with other people?: Somewhat difficult Total Score: 1 JOSE-Q SV Test Statements CAD is a disease of the arteries in the heart: False Examples of risk factors for heart disease: True Angina is chest pain or discomfort: I Don't Know The benefits of resistance training include: True Eating more meat and dairy products: False Anti-platelet medications such as aspirin are important: True The only effective way to manage stress: False An exercise warm-up slowly increases heart rate: I Don't Know Prepared, processed foods usually have high sodium: True Depression is common after a heart attack: True The statin medications lower cholesterol: True To control blood pressure, lower the amount of sodium: True If someone gets chest discomfort during walking: False Transfats are partially hydrogenated vegetable oils: True Sleep apnea that is not treated increases the risk: True To control cholesterol, one should become a vegetarian: False Someone knows if he/she is exercising at the right level: True Diabetes cannot be prevented with exercise & health eating: False Stress is a large risk for heart attack: True A diet that can help lower blood pressure is rich in: True Total Score Total Correct Responses: 17 Self-Efficacy 6-Item Scale Initial Assessment: We would like to know how confident you are in doing certain activities. Please select your confidence level for: Fatigue Select Number: 6 Physical Discomfort or Pain Select Number: 9 Emotional Distress Select Number: 9 Other Symptoms or Health Problems Select Number: 8 Different Tasks and Activities Select Number: 9 Medication Select Number: 9 Total Score:: 8 Nutrition Survey Nutrition Survey Instructions Scoring Instructions Nutrition Survey Initial: Have you lost >10 lbs over the past 2 months without trying?: Yes Are you following a special diet at home for diabetes, low fat, or low salt?: No Are you interested in meeting with a dietitian for help understanding your diet?: No Do you eat less than 3 meals a day?: No Do you eat fatty meats (hernandez, sausage, ribs, etc), fried foods, desserts, large amounts of salad dressings, margarine, butter, or cheese most days?: No Do you have food allergies? [Enter types in comment field]: No Do you eat in restaurants more than 3 times a week?: No Do you season food with salt, seasoning salt, or garlic salt?: Yes Do you used canned, boxed, frozen meals, or soups, seasoning packets?: No Total Score:: 2 Exercise - Final/Discharge Physician Prescribed Exercise Modalities: Treadmill, Airdyne, NuStep, SciFit and Lateral Tape Edge Machine Operator Frequency: 3x/week for 12 weeks [36 sessions] Intensity: 60-80% of age predicted maximum heart rate reserve Current METSs:: 3 Target Heart Rate:: 91-114 Nutrition - 30-Day Assessment Weight Mgt (Other Care) Height: 5 ft 10 in Weight:: 146 lb BMI: 20.9 Nutrition - 60-Day Assessment Weight Mgt (Other Care) Height: 5 ft 10 in Weight:: 146 lb BMI: 20.9 Core - Final Assessment Hypertension Resting Blood Pressure:: 129/70 [place] [employer] Hypertension Guidelines Core - 60-Day Assessment Hypertension Resting Blood Pressure:: 129/70 [place] [employer] Hypertension Guidelines Psychosocial - 30-Day Assess Target Goals Target Goals Psychosocial - 60-Day Assess Target Goals Target Goals Psychosocial - 90-Day Assess Target Goals Target Goals Psychosocial - Final Assessmen Target Goals Target Goals Nutrition - 90-Day Assessment Weight Mgt (Other Care) Height: 5 ft 10 in Weight:: 146 lb BMI: 20.9 Nutrition - Final Assessment Weight Mgt (Other Care) Height: 5 ft 10 in Weight:: 146 lb BMI: 20.9
[2023-03-31 11:27] VITALS: BP 129/70; BMI 20.9
== END | disposition home or self-care (01) ==
LOC: CR 10:26
PROVIDERS: PCP Nurse Practitioner Family; Referring Provider Internal Medicine Cardiovascular Disease; Visit Provider Internal Medicine Cardiovascular Disease
DX: Z95.5 Presence of coronary angioplasty implant and graft (principal); I48.91 Unspecified atrial fibrillation; I34.0 Nonrheumatic mitral (valve) insufficiency; Z98.890 Other specified postprocedural states; Z96.649 Presence of unspecified artificial hip joint

== ENCOUNTER → 2023-04-13 | Outpatient (CLI) | payer MEDICARE, SELFPAY ==
[2023-03-31 11:27] VITALS: BMI 20.9
[2023-04-13 08:20] LABS: Erythrocyte Sedimentation Rate 8 mm/hr (0-20)
[2023-04-13 08:21] LABS: Absolute Lymphocyte Count 2.18 X10^3/uL (0.83-4.51); Absolute Neutrophil Count 3.1 X10^3/uL (2.0-7.7); Basophil# 0.08 X10^3/uL; Basophil% 1.3 % (0-1); Eosinophil# 0.22 X10^3/uL; Eosinophils% 3.6 % (0-5); Hematocrit 40.8 % (40-54); Hemoglobin 12.9 g/dL (13.0-16.5); Lymphocyte # 2.18 X10^3/ul (0.83-4.51); Lymphocyte % 35.3 % (19-41); Mean Corp Hgb Conc 31.6 g/dL (32-36); Mean Corpuscular Hgb 29.7 pg (27.0-32.0); Mean Corpuscular Volume 93.8 fL (80-94); Mean Platelet Vol. 11.8 fl (6.2-12.0); Monocyte# 0.58 X10^3/uL; Monocyte% 9.4 % (0-10); NRBC Flagged by Analyzer 0 % (0-5); Neutrophil # 3.09 X10^3/uL (2.7-7.7); Neutrophil % 50.1 % (47-70); Platelet Count 170 K/mm3 (150-450); RBC Distribution Width CV 15.2 % (11.6-14.6); RBC Distribution Width SD 52.5 fl (35.1-43.9); Red Blood Count 4.35 M/mm3 (4.6-6.2); White Blood Count 6.2 K/mm3 (4.4-11.0)
[2023-04-13 08:49] LABS: Vitamin B12 > 2000 pg/mL (211-911)
[2023-04-13 10:05] LABS: Prothrombin Time (Protime)PT. 13.5 SECONDS (11.7-14.9)
[2023-04-13 10:06] LABS: Partial Thromboplast Time 28.9 Seconds (24.1-36.2)
[2023-04-13 10:15] LABS: ALB/GLOB Ratio 0.9 RATIO (0.9-2.4); AST(SGOT) 25 U/L (15-37); Alanine Aminotransfer ALT/SGPT 30 U/L (16-61); Albumin, Serum 3.6 g/dL (3.2-5.0); Alkaline Phosphatase 92 U/L (45-117); Anion Gap 7 (5-15); BUN 19 mg/dL (7-18); BUN/Creat Ratio 24.1 RATIO (10-20); CRP, High Sensitivity Cardiac 1.32 mg/L; Chloride 111 mmol/L (98-107); Cholesterol 105 mg/dL (200); Creatinine, Serum 0.79 mg/dL (0.70-1.30); EST Glomerular Filtration Rate 104 mL/min (>60); Est Glom Filt Rate - Afr Amer 126 mL/min (>60); Ferritin 169 ng/mL (26-388); Free T3 2.1 pg/mL (2.18-3.98); GGTP 16 U/L (15-85); Globulin 3.9 g/dL (2.2-4.2); Glucose 84 mg/dL (74-106); High Density Lipoprotein 52 mg/dL; Iron 61 ug/dL (65-175); Iron Binding Capacity,Total 313 ug/dL (250-450); Magnesium 2.1 mg/dL (1.6-2.6); PERCENT IRON SATURATION 19.5 % (15.0-55.0); Protein, Total 7.5 g/dL (6.4-8.2); Rheumatoid Factor < 10.0 IU/mL (<15); Sodium Level 143 mmol/L (136-145); T4 Free Direct 0.88 ng/dL (0.76-1.46); Thyroid Stim Hormone (TSH) 3.11 uIU/mL (0.358-3.74); Triglycerides 53 mg/dL; Uric Acid 4.5 mg/dL (3.5-7.2); Very Low Density Lipoprotein 11 mg/dL (5-40)
[2023-04-13 10:38] LABS: Fibrinogen 397 mg/dl (203-444)
[2023-04-14 12:09] LABS: ANTINUCLEAR ANTIBODIES DIRECT Negative (Negative)
[2023-04-26 14:49] LABS: Arsenic 7245 2 ug/L (0-9); CMV Acute Antibody IgM < 30.0 AU/mL (0.0-29.9); CMV Antibody IgG > 10.00 U/mL (0.00-0.59); Complement C3 105 mg/dL (82-167); Copper, Serum or Plasma 76 ug/dL (69-132); Coxsackie B-1 Ab 1:32 (Neg:<1:8); Coxsackie B-5 Ab 1:32 (Neg:<1:8); DHEA Sulfate 67.1 ug/dL (30.9-295.6); EBV Acute VCA IgM < 36.0 U/mL (0.0-35.9); EBV Early Antigen IgG <9.0 U/mL (0.0-8.9); EBV Nuclear Antigen IgG > 600.0 U/mL (0.0-17.9); Estrogen, Total, Serum 78 pg/mL (56-213); Immunoglobulin A 359 mg/dL (61-437); Immunoglobulin E 43 IU/mL (6-495); Immunoglobulin G 1311 mg/dL (603-1613); Immunoglobulin M 128 mg/dL (20-172); Insulin Like Growth Factor 181 ng/mL (59-230); Lead, Blood 2.9 ug/dL (0.0-3.4); Lyme IgG P18 Ab Absent (.); Lyme IgG P23 Ab Absent (.); Lyme IgG P28 Ab Absent (.); Lyme IgG P30 Ab Absent (.); Lyme IgG P39 Ab Absent (.); Lyme IgG P41 Ab Absent (.); Lyme IgG P45 Ab Absent (.); Lyme IgG P58 Ab Absent (.); Lyme IgG P66 Ab Absent (.); Lyme IgG P93 Ab Absent (.); Lyme IgG WB Interpretation Negative (.); Lyme IgM P23 Ab Absent (.); Lyme IgM P39 Ab Absent (.); Lyme IgM P41 Ab Absent (.); Lyme IgM WB Interpretation Negative (.); Mercury, Blood 85324 < 1.0 ug/L (0.0-14.9); Mycoplasma Pneum AB IgG 187 U/mL (0-99); Mycoplasma pneum. AB IgM < 770 U/mL (0-769); PARVOVIRUS B19 IGG 5.2 index (0.0-0.8); PARVOVIRUS B19 IGM 0.1 index (0.0-0.8); PSA, Total 0.9 ng/mL (0.0-4.0); T3 Reverse 14.9 ng/dL (9.2-24.1); Testosterone, % Free 2.26 % (1.50-4.20); Testosterone, Free 6.85 ng/dL (5.00-21.00); Testosterone, Total 303 ng/dL (264-916); Thyroglobulin Antibody < 1.0 IU/mL (0.0-0.9); Thyroid Peroxidase AB < 9 IU/mL (0-34); Zinc, Plasma or Serum 62 ug/dL (44-115)
== END | disposition home or self-care (01) ==
PROVIDERS: PCP Nurse Practitioner Family
DX: I48.91 Unspecified atrial fibrillation (principal); I42.8 Other cardiomyopathies; E88.89 Other specified metabolic disorders; R53.83 Other fatigue; Z12.5 Encounter for screening for malignant neoplasm of prostate; T56.0X1A Toxic effect of lead and its compounds, accidental (unintentional), initial encounter; A28.1 Cat-scratch disease; A77.0 Spotted fever due to Rickettsia rickettsii; E55.9 Vitamin D deficiency, unspecified
CPT/HCPCS: 36415; 80053; 80061; 81291; 82175; 82306; 82525; 82533; 82607; 82627; 82672; 82728; 82784; 82785; 82977; 83540; 83550; 83655; 83735; 83825; 84153; 84305; 84402; 84403; 84439; 84443; 84481; 84482; 84550; 84630; 85025; 85384; 85610; 85652; 85730; 86038; 86141; 86160; 86225; 86235; 86376; 86431; 86617; 86644; 86645; 86658; 86663; 86664; 86665; 86738; 86747; 86800; 82626

== ENCOUNTER 2023-04-28 13:00 | Outpatient (RCR) | payer MEDICARE, SELFPAY ==
[2023-03-31 11:27] VITALS: BMI 20.9
== END 2023-04-30 23:59 ==
LOC: CR 13:00
PROVIDERS: PCP Nurse Practitioner Family; Referring Provider Internal Medicine Cardiovascular Disease; Visit Provider Internal Medicine Cardiovascular Disease
DX: I48.91 Unspecified atrial fibrillation (principal); Z98.890 Other specified postprocedural states
CPT/HCPCS: 88305; 93798

== ENCOUNTER → 2023-05-24 | Outpatient (CLI) | payer MEDICARE, SELFPAY ==
[2023-05-03 10:28] VITALS: BMI 22.1
--- NOTE | 2023-05-24 11:09 | ECHOD_ITS ---
Reason For Study: CM Procedure This was a 2D Doppler, Color Flow transthoracic echocardiogram. Exam performed in department. Left Ventricle Moderately dilated left ventricle. The left ventricular ejection fraction is 35 %. Stage 2 diastolic dysfunction. There is moderate to severe global hypokinesis of the left ventricle. Right Ventricle Normal RV size. Normal systolic function. Atria The left atrium is mildly enlarged. Normal right atrium. Mitral Valve Mild (1+) eccentric mitral valve insufficiency. Status post mitral valve repair with annuloplasty ring. Tricuspid Valve Normal tricuspid valve. Mild tricuspid valve insufficiency. Aortic Valve Trisinus/trileaflet aortic valve. Mild (1+) aortic valve insufficiency. Pulmonic Valve Normal pulmonic valve. Great Vessels Normal aortic root. The pulmonary artery is normal size. Normal inferior vena cava. Pericardium/Pleural No pericardial effusion. MMode/2D Measurements & Calculations LVIDd: 6.6 cm IVSd: 1.2 cm Ao root diam: 3.2 cm LVIDs: 6.1 cm LVPWd: 1.1 cm RVDd: 4.1 cm FS: 8.4 % LAV(MOD-bp): 70.0 ml LVAd ap4: 50.3 cm2 SV(MOD-sp4): 45.1 ml LAV(MOD-bp) Indexed: 37.4 ml/m2 LVLd ap4: 9.7 cm LAV(MOD-sp2): 79.0 ml EDV(MOD-sp4): 215.7 ml LAV(MOD-sp4): 62.2 ml EDV(sp4-el): 220.5 ml LVAs ap4: 42.9 cm2 LVLs ap4: 9.0 cm ESV(MOD-sp4): 170.6 ml ESV(sp4-el): 174.1 ml EF(MOD-sp4): 20.9 % EF(sp4-el): 21.0 % SV(sp4-el): 46.4 ml LA A4 area: 20.3 cm2 LA dimension(2D): 5.0 cm RA A4 area: 12.6 cm2 Time Measurements MV dec time: 0.30 sec Doppler Measurements & Calculations MV E max marcos: 115.8 cm/sec Lat Peak E' Marcos: 5.5 cm/sec Med Peak E' Marcos: 3.9 cm/sec MV A max marcos: 79.6 cm/sec E/E' lat: 20.9 E/E' med: 29.5 MV E/A: 1.5 MV V2 max: 142.0 cm/sec Ao V2 max: 134.9 cm/sec MV max P.1 mmHg MV dec slope: 392.7 cm/sec2 Ao max P.3 mmHg MV V2 mean: 92.3 cm/sec Ao V2 mean: 104.0 cm/sec MV mean P.8 mmHg Ao mean P.6 mmHg MV V2 VTI: 39.8 cm Ao V2 VTI: 27.3 cm AV (velocity ratio): 0.76 LV V1 max: 109.1 cm/sec PA V2 max: 105.4 cm/sec TR max marcos: 209.6 cm/sec LV V1 max P.8 mmHg TR max P.6 mmHg LV V1 mean P.2 mmHg LV V1 mean: 87.0 cm/sec LV V1 VTI: 20.7 cm ECHO/Echo Complete Interpretation Summary Status post mitral valve repair with annuloplasty ring. The left ventricular ejection fraction is 35 %. Moderately dilated left ventricle. Stage 2 diastolic dysfunction. Mild tricuspid valve insufficiency. Mild (1+) eccentric mitral valve insufficiency. There is moderate to severe global hypokinesis of the left ventricle. Compared to previous study, the left ventricular systolic function has worsened .. Ordering Physician: FABIEN KEARNS Referring Physician: Poppy Uribe Performed By: Priscilla Fallon, YONATAN, RVT
== END | disposition home or self-care (01) ==
PROVIDERS: PCP Nurse Practitioner Family
DX: I42.8 Other cardiomyopathies (principal)
CPT/HCPCS: 93306

== ENCOUNTER 2023-05-31 13:00 | Outpatient (RCR) | payer MEDICARE, SELFPAY ==
[2023-03-31 11:27] VITALS: BMI 20.9
--- NOTE | 2023-05-03 10:16 | PCM.CR.ITP ---
Exercise - Initial Assessment Visit Session #:: 11 Nutrition - Initial Assessment Weight Mgt (Other Care) Height: 5 ft 10 in Weight:: 154 lb BMI: 22.1 Psychosocial - Initial Assess Target Goals Target Goals Patient Health Questionnaire PHQ-9 Screening 30-Day Re-eval Assessment: 1. Little interest or pleasure in doing things: Not at all 2. Feeling down, depressed, or hopeless: Not at all 3. Trouble falling or staying asleep, or sleeping too much: Not at all 4. Feeling tired or having little energy: Several days 5. Poor appetite or overeating: Not at all 6. Feeling bad about yourself -- or that you are a failure or have let yourself or your family down: Not at all 7. Trouble concentrating on things, such as reading the newspaper or watching television: Not at all 8. Moving or speaking so slowly that other people could have noticed. Or the opposite - being so fidgety or restless that you have been moving around a lot more than usual: Not at all 9. Thoughts that you would be better off , or of hurting yourself in some way: Not at all How difficult have these problems made it for you to do your work, take care of things at home, or get along with other people?: Somewhat difficult Total Score: 1 Self-Efficacy 6-Item Scale 30-Day Re-eval Assessment: We would like to know how confident you are in doing certain activities. Please select your confidence level for: Fatigue Select Number: 6 Physical Discomfort or Pain Select Number: 9 Emotional Distress Select Number: 9 Other Symptoms or Health Problems Select Number: 8 Different Tasks and Activities Select Number: 9 Medication Select Number: 9 Total Score:: 8 Nutrition Survey Nutrition Survey Instructions Scoring Instructions Exercise - 30-day Assessment Visit Date of Eval: 05/03/23 Session #:: 11 Physician Prescribed Exercise Modalities: Treadmill, Airdyne and NuStep Frequency: 3x/week for 12 weeks [36 sessions] Intensity: 60-80% of age predicted maximum heart rate reserve Duration: 30 - 45 minutes Current METSs:: 4 Target Heart Rate:: 114-129 Current RPE:: 9 Maximum Excercise HR:: 103 Resting Blood Pressure: 110/70 Maximum Exercise Blood Pressure: 118/64 EKG Type: NSR with rare pac's, occas to freq pvc's, rare vent couplets/triplets, trig Outcomes & Goals Goals:: Verbalizes understanding of THR, RPE & goal METS by session 6, Documents in home exercise log/reports 30 min aerobic 5 day/wk by DC, Demonstrates accurate pulse taking by DC and Other additional outcome/goals: see below Intervention & Plan Exercise Program Goals: Instruct on personal THR & RPE, Instruct on MET level & personal MET goal, Show patient to take own pulse /validate performance until accurate, Instruct on home exercise and Other additional plan/int 30-day Reassessments 30 day Reassessments:: Progressing Reassessment Notes & Comments:: RPE explained Physical Activity Home Exercise Physical Activity - Home Exercise: Safe Exercise, Warm-up, Self-monitoring, Cool-Down, Home Exercise > 30 min Daily and Sitting Time <3 hours/daily Outcomes & Goals Outcomes/Goals: Demonstrates correct Warm-up/exercise Cool-Down (S3) if = 2.5 METs, Verbalizes symptoms of exercise intolerance by Session 3 (S3), Demonstrate safe equipment use (S3) & follows exercise prescrition (6) and Other: See below Intervention & Plan Plan/Intervention: Instruct warm-up & cool-down if exercising at > 2 METs, Instruct on symptoms of exercise intolerance & actions to take, Instruct & monitor on saf, Assess intial functional capacity & safety risk and Other See below 30-day Reassessments 30 day Reassessments:: Progressing Reassessment Notes & Comments:: warm up encouraged Nutrition - 30-Day Assessment Visit Date of Eval: 05/03/23 Session #:: 11 Cholesterol/Lipids (Other Core Measures) Determine presence & major risk factors that modify LDL goal: Hypertension or hypertensive medication, Low HDL cholesterol <40 mg/dL*, Family history of premature CHD in Male < 55 years: female <65 yearsFa and Age men > 45 years; women >/= 55 years Outcomes/Goals: Pt IDs own risk factors & lifestyle modifications by Session 10, Verbalizes symptoms of angina & response by session 3., Pt independently manages and Other Additional Outcomes/Goals: Intervention/Plan: Advocate for lipid panel cholesterol medication if applicable, Instruct on personal lipid levels & lipid goals/NCEP guidelines, Instruct on cholesterol and Other additional plan/int Referral to dietitian:: No 30-day Reassessments:: Progressing Reassessment Notes & Comments:: pt to attend nutrition class Diabetes (Other Core Measures) Diabetes Type: Not Applicable Weight Mgt (Other Care) Height: 5 ft 10 in Weight:: 154 lb BMI: 22.1 Diagnosis Overweight/Obesity BMI> 30% ICD-10 E66: No Diagnosis High BMI/Morbid Obesity BMI> 35% ICD-10 Z68: No Outcomes/Goals: Pt sets, maintains & shows weight loss goal & trend during rehab and Other additional outcomes/goals Intervention/Plan: Instruct on ideal BMI & set weight loss goal w/patient, Assist pt to ID & incorporate diet changes for weight loss by S9, Refer to Structured Weight Loss program as appropriate, Encourage goal of using 250-300dcal per session for weight loss and Other additional plan/interventions 30 day Reassessments:: Progressing Reassessment Notes & Comments:: pt to attend nutrition class Healthy Eating Habits Will attend diet classes:: Yes Outcomes/Goals:: Consume diet rich in vegs,fruits,whole grain/high fiber,fish,lean meat, Limit sat/trans fats,cholesterol & added salts & sugars and Other additional outcome/goals: Intervention/Plan:: Assess current eating habits and Other Additional plan/interventions 30-day Reassessments:: Progressing Reassessment Notes & Comments:: pt to attend nutrition class Education Gave educational materials for:: Signs & symptoms of hypoglycemia, Signs & symptoms of hyperglycemia, Relate diabetes to coronary artery disease and Healthy eating Nutrition - 60-Day Assessment Weight Mgt (Other Care) Height: 5 ft 10 in Weight:: 154 lb BMI: 22.1 Core - 30-Day Assessment Visit Date of Eval: 05/03/23 Session #:: 11 Medication Compliance Preventative Medication(s):: Aspirin, Beta tona and Eliquis H/O mental health issues: depression, anxiety, or addiction?: No Doesn?t believe in the benefits of treatment?: No Believes medications are unnecessary or harmful?: No Has a concern about medication side effects?: No Expresses concern over the cost of medications?: No Outcomes/Goals: Verbalizes medications,desired effect & common side effects @ DC, Pt self-reports following medication regimen, Keeps card in wallet w/medications listed by DC and Other additional outcome/goals: Interventions/plans: Instruct on medication effects & side effects, Review medication list w/patient every two weeks, Instruct importance of taking meds as ordered & assist problem solving and Other additional 30-day Reassessments:: Progressing Reassessment Notes & Comments:: Toprol increased to 25 mg Tobacco Use Tobacco Use: Non-smoker Hypertension Resting Blood Pressure:: 110/70 [place] [employer] Hypertension Guidelines Peak Exercise Blood Pressure:: 118/64 Outcomes/Goals: Able to verbalize/achieve optimal blood pressure <130/80, Incorporates diet changes & exercise for blood pressure control by DC and Other additional outcomes/goals Interventions/plan: Instruct on optimal blood pressure, hypertension & medications, Instruct on effects of sodium, alcohol, stress, exercise &hypertension and Other additional plan/interventions 30 day Reassessments:: Progressing Reassessment Notes & Comments:: pt encouraged Tobacco Cessation Referral Smoking Cessation Referral:: No Individual Education/Counseling:: No Education Schedule Given:: Yes Psychosocial - 30-Day Assess VIsit Date of Eval: 05/03/23 Session #:: 11 History of previous Mental disease:: No Target Goals Target Goals Outcomes/Goals: See list Psychosocial Outcomes/Goals:: ID's personal stressors & 2 strategies to manage stress by discharge and Other Additional outcome/goals: Intervention/Plan: See List Interventions/Plan:: Assess stressors,coping strategies & signs of derpression on admission, Instruct/assist pt to develop coping & personal stress Mgt strategies, Refer to Behavioral Health if appropriate, Refer to Physician if appropriate, Instruct patient to recognize signs & symptoms of depression, Instruct patient to recog and Other additional plan/intervention 30-day Reassessments: 30 day Reassessments:: Met Psychosocial - 60-Day Assess Target Goals Target Goals Outcomes/Goals: See list Psychosocial Outcomes/Goals:: ID's personal stressors & 2 strategies to manage stress by discharge and Other Additional outcome/goals: Psychosocial - 90-Day Assess Target Goals Target Goals Psychosocial - Final Assessmen Target Goals Target Goals Nutrition - 90-Day Assessment Weight Mgt (Other Care) Height: 5 ft 10 in Weight:: 154 lb BMI: 22.1 Nutrition - Final Assessment Weight Mgt (Other Care) Height: 5 ft 10 in Weight:: 154 lb BMI: 22.1
[2023-05-03 10:28] VITALS: BP 110/70; BMI 22.1
== END 2023-05-31 23:59 ==
LOC: CR 13:00
PROVIDERS: PCP Nurse Practitioner Family; Referring Provider Internal Medicine Cardiovascular Disease; Visit Provider Internal Medicine Cardiovascular Disease
DX: I48.91 Unspecified atrial fibrillation (principal); Z98.890 Other specified postprocedural states
CPT/HCPCS: 93798

== ENCOUNTER 2023-06-28 13:00 | Outpatient (RCR) | payer MEDICARE, SELFPAY ==
[2023-05-03 10:28] VITALS: BMI 22.1
[2023-06-01 00:56] VITALS: BP 110/70
--- NOTE | 2023-06-02 09:30 | PCM.CR.ITP ---
Nutrition - Initial Assessment Weight Mgt (Other Care) Height: 5 ft 10 in Weight:: 159 lb BMI: 22.8 Psychosocial - Initial Assess Target Goals Target Goals Patient Health Questionnaire PHQ-9 Screening 60-Day Re-eval Assessment: 1. Little interest or pleasure in doing things: Not at all 2. Feeling down, depressed, or hopeless: Not at all 3. Trouble falling or staying asleep, or sleeping too much: Not at all 4. Feeling tired or having little energy: Several days 5. Poor appetite or overeating: Not at all 6. Feeling bad about yourself -- or that you are a failure or have let yourself or your family down: Not at all 7. Trouble concentrating on things, such as reading the newspaper or watching television: Not at all 8. Moving or speaking so slowly that other people could have noticed. Or the opposite - being so fidgety or restless that you have been moving around a lot more than usual: Not at all 9. Thoughts that you would be better off , or of hurting yourself in some way: Not at all How difficult have these problems made it for you to do your work, take care of things at home, or get along with other people?: Somewhat difficult Total Score: 1 Self-Efficacy 6-Item Scale 60-Day Re-eval Assessment: We would like to know how confident you are in doing certain activities. Please select your confidence level for: Fatigue Select Number: 6 Physical Discomfort or Pain Select Number: 9 Emotional Distress Select Number: 9 Other Symptoms or Health Problems Select Number: 8 Different Tasks and Activities Select Number: 9 Medication Select Number: 9 Total Score:: 8 Nutrition Survey Nutrition Survey Instructions Scoring Instructions Exercise - 60-day Assessment Visit Date of Eval: 06/02/23 Session #:: 24 Physician Prescribed Exercise Modalities: Treadmill, Airdyne and NuStep Frequency: 3x/week for 12 weeks [36 sessions] Intensity: 60-80% of age predicted maximum heart rate reserve Duration: 30 - 45 minutes Current METSs:: 4 Target Heart Rate:: 114-129 Current RPE:: 11 Maximum Excercise HR:: 112 Resting Blood Pressure: 110/64 Maximum Exercise Blood Pressure: 138/70 EKG Type: NSR/ST with rare pac's, occas to freq pvc's, occas vent couplet, triplet, t Outcomes & Goals Goals:: Verbalizes understanding of THR, RPE & goal METS by session 6, Documents in home exercise log/reports 30 min aerobic 5 day/wk by DC, Demonstrates accurate pulse taking by DC and Other additional outcome/goals: see below Intervention & Plan Exercise Program Goals: Instruct on personal THR & RPE, Instruct on MET level & personal MET goal, Show patient to take own pulse /validate performance until accurate, Instruct on home exercise and Other additional plan/int 30-day Reassessments 30 day Reassessments:: Progressing Reassessment Notes & Comments:: THR explained Physical Activity Home Exercise Physical Activity - Home Exercise: Safe Exercise, Warm-up, Self-monitoring, Cool-Down, Home Exercise > 30 min Daily and Sitting Time <3 hours/daily Outcomes & Goals Outcomes/Goals: Demonstrates correct Warm-up/exercise Cool-Down (S3) if = 2.5 METs, Verbalizes symptoms of exercise intolerance by Session 3 (S3), Demonstrate safe equipment use (S3) & follows exercise prescrition (6) and Other: See below Intervention & Plan Plan/Intervention: Instruct warm-up & cool-down if exercising at > 2 METs, Instruct on symptoms of exercise intolerance & actions to take, Instruct & monitor on saf, Assess intial functional capacity & safety risk and Other See below 30-day Reassessments 30 day Reassessments:: Progressing Reassessment Notes & Comments:: cool down encouraged Nutrition - 30-Day Assessment Weight Mgt (Other Care) Height: 5 ft 10 in Weight:: 159 lb BMI: 22.8 Nutrition - 60-Day Assessment Visit Date of Eval: 06/02/23 Session #:: 24 Cholesterol/Lipids (Other Core Measures) Determine presence & major risk factors that modify LDL goal: Hypertension or hypertensive medication, Low HDL cholesterol <40 mg/dL*, Family history of premature CHD in Male < 55 years: female <65 yearsFa and Age men > 45 years; women >/= 55 years Outcomes/Goals: Pt IDs own risk factors & lifestyle modifications by Session 10, Verbalizes symptoms of angina & response by session 3., Pt independently manages and Other Additional Outcomes/Goals: Intervention/Plan: Advocate for lipid panel cholesterol medication if applicable, Instruct on personal lipid levels & lipid goals/NCEP guidelines, Instruct on cholesterol and Other additional plan/int 30-day Reassessments:: Progressing Reassessment Notes & Comments:: pt to attend nutrition class Diabetes (Other Core Measures) Diabetes Type: Not Applicable Weight Mgt (Other Care) Height: 5 ft 10 in Weight:: 159 lb BMI: 22.8 Diagnosis Overweight/Obesity BMI> 30% ICD-10 E66: No Diagnosis High BMI/Morbid Obesity BMI> 35% ICD-10 Z68: No Outcomes/Goals: Pt sets, maintains & shows weight loss goal & trend during rehab and Other additional outcomes/goals Intervention/Plan: Instruct on ideal BMI & set weight loss goal w/patient, Assist pt to ID & incorporate diet changes for weight loss by S9, Refer to Structured Weight Loss program as appropriate, Encourage goal of using 250-300dcal per session for weight loss and Other additional plan/interventions 30 day Reassessments:: Progressing Reassessment Notes & Comments:: pt to attend nutrition class Healthy Eating Habits Will attend diet classes:: Yes Outcomes/Goals:: Consume diet rich in vegs,fruits,whole grain/high fiber,fish,lean meat, Limit sat/trans fats,cholesterol & added salts & sugars and Other additional outcome/goals: Intervention/Plan:: Assess current eating habits and Other Additional plan/interventions 30-day Reassessments:: Progressing Reassessment Notes & Comments:: pt to attend nutrition class Education Gave educational materials for:: Signs & symptoms of hypoglycemia, Signs & symptoms of hyperglycemia, Relate diabetes to coronary artery disease and Healthy eating Core - 60-Day Assessment Medication Compliance Preventative Medication(s):: Aspirin, Beta tona and Eliquis H/O mental health issues: depression, anxiety, or addiction?: No Doesn?t believe in the benefits of treatment?: No Believes medications are unnecessary or harmful?: No Has a concern about medication side effects?: No Expresses concern over the cost of medications?: No Outcomes/Goals: Verbalizes medications,desired effect & common side effects @ DC, Pt self-reports following medication regimen, Keeps card in wallet w/medications listed by DC and Other additional outcome/goals: Interventions/plans: Instruct on medication effects & side effects, Review medication list w/patient every two weeks, Instruct importance of taking meds as ordered & assist problem solving and Other additional 30-day Reassessments:: Progressing Reassessment Notes & Comments:: pt encouraged to take his meds Tobacco Use Tobacco Use: Non-smoker Hypertension Hypertension Diagnosis:: Hypertension ICD-10 I10 Resting Blood Pressure:: 110/64 [place] [employer] Hypertension Guidelines Peak Exercise Blood Pressure:: 138/70 Outcomes/Goals: Able to verbalize/achieve optimal blood pressure <130/80, Incorporates diet changes & exercise for blood pressure control by DC and Other additional outcomes/goals Interventions/plan: Instruct on optimal blood pressure, hypertension & medications, Instruct on effects of sodium, alcohol, stress, exercise &hypertension and Other additional plan/interventions 30 day Reassessments:: Met Tobacco Cessation Referral Smoking Cessation Referral:: No Individual Education/Counseling:: No Education Schedule Given:: Yes Psychosocial - 30-Day Assess Target Goals Target Goals Outcomes/Goals: See list Psychosocial Outcomes/Goals:: ID's personal stressors & 2 strategies to manage stress by discharge and Other Additional outcome/goals: Psychosocial - 60-Day Assess VIsit Date of Eval: 06/02/23 Session #:: 24 History of previous Mental disease:: No Target Goals Target Goals Outcomes/Goals: See list Psychosocial Outcomes/Goals:: ID's personal stressors & 2 strategies to manage stress by discharge and Other Additional outcome/goals: Intervention/Plan: See List Interventions/Plan:: Assess stressors,coping strategies & signs of derpression on admission, Instruct/assist pt to develop coping & personal stress Mgt strategies, Refer to Behavioral Health if appropriate, Refer to Physician if appropriate, Instruct patient to recognize signs & symptoms of depression, Instruct patient to recog and Other additional plan/intervention 30-day Reassessments: 30 day Reassessments:: Met Psychosocial - 90-Day Assess Target Goals Target Goals Psychosocial - Final Assessmen Target Goals Target Goals Nutrition - 90-Day Assessment Weight Mgt (Other Care) Height: 5 ft 10 in Weight:: 159 lb BMI: 22.8 Nutrition - Final Assessment Weight Mgt (Other Care) Height: 5 ft 10 in Weight:: 159 lb BMI: 22.8
[2023-06-02 09:41] VITALS: BP 110/64; BMI 22.8
== END 2023-06-29 23:59 ==
LOC: CR 13:00
PROVIDERS: PCP Nurse Practitioner Family; Referring Provider Internal Medicine Cardiovascular Disease; Visit Provider Internal Medicine Cardiovascular Disease
DX: I48.91 Unspecified atrial fibrillation (principal); Z98.890 Other specified postprocedural states
CPT/HCPCS: 93798

== ENCOUNTER → 2023-07-20 | Outpatient (CLI) | payer MEDICARE, SELFPAY ==
[2023-06-02 09:41] VITALS: BMI 22.8
[2023-07-20 07:43] LABS: Absolute Lymphocyte Count 2.79 X10^3/uL (0.83-4.51); Absolute Neutrophil Count 2.4 X10^3/uL (2.0-7.7); Basophil# 0.08 X10^3/uL; Basophil% 1.3 % (0-1); Eosinophil# 0.26 X10^3/uL; Eosinophils% 4.1 % (0-5); Hematocrit 43.8 % (40-54); Hemoglobin 14.6 g/dL (13.0-16.5); Lymphocyte # 2.79 X10^3/ul (0.83-4.51); Lymphocyte % 44.4 % (19-41); Mean Corp Hgb Conc 33.3 g/dL (32-36); Mean Corpuscular Volume 90.1 fL (80-94); Mean Platelet Vol. 12.7 fl (6.2-12.0); Monocyte% 11.1 % (0-10); NRBC Flagged by Analyzer 0 % (0-5); Neutrophil # 2.43 X10^3/uL (2.7-7.7); Neutrophil % 38.8 % (47-70); Platelet Count 150 K/mm3 (150-450); RBC Distribution Width CV 14.1 % (11.6-14.6); RBC Distribution Width SD 46.6 fl (35.1-43.9); Red Blood Count 4.86 M/mm3 (4.6-6.2); White Blood Count 6.3 K/mm3 (4.4-11.0)
[2023-07-20 08:21] LABS: Vitamin D,25 Hydroxy 96.1 ng/mL
[2023-07-20 09:58] LABS: ALB/GLOB Ratio 0.9 RATIO (0.9-2.4); AST(SGOT) 30 U/L (15-37); Alanine Aminotransfer ALT/SGPT 27 U/L (16-61); Albumin, Serum 3.7 g/dL (3.2-5.0); Alkaline Phosphatase 103 U/L (45-117); Anion Gap 6 (5-15); BUN 23 mg/dL (7-18); BUN/Creat Ratio 29.4 RATIO (10-20); Calcium,Total 8.8 mg/dL (8.5-10.1); Chloride 110 mmol/L (98-107); Creatinine, Serum 0.78 mg/dL (0.70-1.30); EST Glomerular Filtration Rate 105 mL/min (>60); Est Glom Filt Rate - Afr Amer 127 mL/min (>60); Ferritin 86 ng/mL (26-388); Free T3 2.8 pg/mL (2.18-3.98); Glucose 89 mg/dL (74-106); Iron 65 ug/dL (65-175); Iron Binding Capacity,Total 385 ug/dL (250-450); Magnesium 2.1 mg/dL (1.6-2.6); PERCENT IRON SATURATION 16.9 % (15.0-55.0); Potassium 3.9 mmol/L (3.5-5.1); Protein, Total 7.7 g/dL (6.4-8.2); Sodium Level 141 mmol/L (136-145); T4 Free Direct 0.85 ng/dL (0.76-1.46); Thyroid Stim Hormone (TSH) 2.53 uIU/mL (0.358-3.74)
[2023-07-25 19:07] LABS: Lead, Blood Adult 16+yrs 3.3 ug/dL (0.0-3.4); T3 Reverse 14.4 ng/dL (9.2-24.1)
== END | disposition home or self-care (01) ==
LOC: LAB 06:02
PROVIDERS: Physician Assistant Medical; PCP Nurse Practitioner Family
DX: T56.0X1S Toxic effect of lead and its compounds, accidental (unintentional), sequela (principal); I42.9 Cardiomyopathy, unspecified; E03.9 Hypothyroidism, unspecified; E61.1 Iron deficiency; E55.9 Vitamin D deficiency, unspecified
CPT/HCPCS: 36415; 80053; 82306; 82533; 82728; 83540; 83550; 83655; 83735; 84439; 84443; 84481; 84482; 85025

== ENCOUNTER → 2023-07-20 | Outpatient (CLI) | payer MEDICARE, SELFPAY ==
[2023-06-02 09:41] VITALS: BMI 22.8
--- NOTE | 2023-07-20 13:29 | EKG12_ITS ---
Test Reason : CARDIOMYOPATHY Blood Pressure : / mmHG Vent. Rate : 094 BPM Atrial Rate : 094 BPM P-R Int : 146 ms QRS Dur : 100 ms QT Int : 348 ms P-R-T Axes : 089 -18 122 degrees QTc Int : 435 ms Sinus rhythm with occasional Premature ventricular complexes Left ventricular hypertrophy with repolarization abnormality Abnormal ECG Confirmed by CECILE VALERIO, TUNDE ([id number]), slot editor KYMBERLY SANDERS ([id number]) on 07/21/2023 6:17:20 AM Referred By: FABIEN KEARNS Confirmed By:TUNDE HUBER MD
--- NOTE | 2023-07-20 13:35 | RAD_ITS ---
INDICATION: Other cardiomyopathies EXAMINATION/TECHNIQUE: X-RAY - XR Chest 2 Views COMPARISON: No relevant prior comparison study available FINDINGS: LINES/DEVICES: None. LUNGS: No consolidation, edema or effusion. No pneumothorax. MEDIASTINUM AND CARDIOVASCULAR STRUCTURES: The cardiac silhouette is not enlarged. Status post median sternotomy. Prosthetic valve appears to be mitral. Atrial appendage clip is seen. Mild tortuosity of the thoracic aorta. BONES AND SOFT TISSUES: Unremarkable. RAD/Chest PA and Lateral IMPRESSION: No radiographic evidence of acute cardiopulmonary disease. Electronically Signed: Alexander Landa MD at 14:01 EDT ,
== END | disposition home or self-care (01) ==
PROVIDERS: PCP Nurse Practitioner Family
DX: I42.8 Other cardiomyopathies (principal)
CPT/HCPCS: 71046; 93005

== ENCOUNTER → 2023-08-17 | Outpatient (CLI) | payer MEDICARE, SELFPAY ==
[2023-06-02 09:41] VITALS: BMI 22.8
--- NOTE | 2023-08-17 07:48 | ECHOD_ITS ---
Reason For Study: CARDIOMYOPATHY Procedure This was a 2D Doppler, Color Flow transthoracic echocardiogram. Myocardial strain analysis was performed in this exam to aid in the assessment of cardiac function. Exam performed in department. Left Ventricle Mildly dilated left ventricle. The left ventricular ejection fraction is 25 %. There is severe global hypokinesis of the left ventricle. Right Ventricle Normal RV size. Normal systolic function. Atria The left atrium is mildly enlarged. Normal right atrium. Mitral Valve Bileaflet diffuse mitral valve thickening. Mild (1+) eccentric mitral valve insufficiency. Status post mitral valve repair with annuloplasty ring. Tricuspid Valve Normal tricuspid valve. Aortic Valve Trisinus/trileaflet aortic valve. Pulmonic Valve Normal pulmonic valve. Great Vessels Normal aortic root. The pulmonary artery is normal size. Inferior vena cava collapse with respiration. Pericardium/Pleural No pericardial effusion. MMode/2D Measurements & Calculations LVIDd: 6.1 cm IVSd: 1.1 cm Ao root diam: 3.1 cm LVIDs: 4.9 cm LVPWd: 1.2 cm FS: 19.4 % LAV(MOD-bp): 93.7 ml LVAd ap4: 43.0 cm2 LVAd ap2: 39.0 cm2 LAV(MOD-bp) Indexed: 49.4 ml/m2 LVLd ap4: 8.5 cm LVLd ap2: 9.7 cm LAV(MOD-sp2): 95.7 ml EDV(MOD-sp4): 184.1 ml EDV(MOD-sp2): 134.5 ml LAV(MOD-sp4): 87.6 ml EDV(sp4-el): 185.3 ml EDV(sp2-el): 132.5 ml LVAs ap4: 35.2 cm2 LVAs ap2: 32.0 cm2 LVLs ap4: 8.0 cm LVLs ap2: 9.5 cm ESV(MOD-sp4): 132.2 ml ESV(MOD-sp2): 96.7 ml ESV(sp4-el): 131.5 ml ESV(sp2-el): 91.3 ml EF(MOD-sp4): 28.2 % EF(MOD-sp2): 28.1 % EF(sp4-el): 29.0 % SV(MOD-sp4): 51.9 ml SV(MOD-sp2): 37.9 ml SV(sp4-el): 53.8 ml LA dimension(2D): 4.3 cm LA A4 area: 24.1 cm2 RA A4 area: 17.2 cm2 TAPSE: 1.8 cm Doppler Measurements & Calculations MV E max marcos: 110.2 cm/sec Lat Peak E' Marcos: 4.4 cm/sec Med Peak E' Marcos: 3.5 cm/sec E/E' lat: 24.9 E/E' med: 31.4 MV V2 max: 122.4 cm/sec Ao V2 max: 95.1 cm/sec LV V1 max: 66.4 cm/sec MV max P.0 mmHg Ao max P.6 mmHg LV V1 max P.8 mmHg MV V2 mean: 73.0 cm/sec Ao V2 mean: 76.5 cm/sec LV V1 mean P.1 mmHg MV mean P.5 mmHg Ao mean P.4 mmHg LV V1 mean: 49.8 cm/sec MV V2 VTI: 27.3 cm Ao V2 VTI: 14.7 cm LV V1 VTI: 11.8 cm AV (velocity ratio): 0.80 MR max marcos: 500.3 cm/sec PA V2 max: 68.8 cm/sec MR max P.1 mmHg PA V2 mean: 62.3 cm/sec MR mean marcos: 385.0 cm/sec MR mean P.4 mmHg MR VTI: 155.0 cm ECHO/Echo Complete Interpretation Summary Status post mitral valve repair with annuloplasty ring. The left ventricular ejection fraction is 25 %. Mildly dilated left ventricle. The global longitudinal strain is severely abnormal. The global longitudinal st rain = -8.3% (abnormal). Ordering Physician: FABIEN KEARNS Referring Physician: FABIEN KEARNS Performed By: Luz Spaulding, YONATAN, RVT
== END | disposition home or self-care (01) ==
LOC: CVS 07:48
PROVIDERS: PCP Nurse Practitioner Family
DX: I42.8 Other cardiomyopathies (principal)
CPT/HCPCS: 93306

== ENCOUNTER → 2023-08-23 | Outpatient (CLI) | payer MEDICARE, SELFPAY ==
[2023-06-02 09:41] VITALS: BMI 22.8
[2023-08-23 09:19] LABS: Absolute Lymphocyte Count 2.08 X10^3/uL (0.83-4.51); Absolute Neutrophil Count 3.1 X10^3/uL (2.0-7.7); Basophil# 0.07 X10^3/uL; Basophil% 1.2 % (0-1); Eosinophil# 0.24 X10^3/uL; Hematocrit 44.6 % (40-54); Hemoglobin 14.6 g/dL (13.0-16.5); Lymphocyte # 2.08 X10^3/ul (0.83-4.51); Lymphocyte % 34.4 % (19-41); Mean Corp Hgb Conc 32.7 g/dL (32-36); Mean Corpuscular Hgb 30.1 pg (27.0-32.0); Mean Platelet Vol. 12.6 fl (6.2-12.0); Monocyte# 0.57 X10^3/uL; Monocyte% 9.4 % (0-10); NRBC Flagged by Analyzer 0 % (0-5); Neutrophil # 3.06 X10^3/uL (2.7-7.7); Neutrophil % 50.7 % (47-70); Platelet Count 151 K/mm3 (150-450); RBC Distribution Width CV 14.1 % (11.6-14.6); RBC Distribution Width SD 47.6 fl (35.1-43.9); Red Blood Count 4.85 M/mm3 (4.6-6.2)
[2023-08-23 09:32] LABS: BNP,B-Type NATRIURETIC PEPTIDE 116.4 pg/mL (0-100)
[2023-08-23 09:46] LABS: Hemoglobin A1c 5.3 % (3.8-5.6)
[2023-08-23 10:04] LABS: AST(SGOT) 36 U/L (15-37); Alanine Aminotransfer ALT/SGPT 37 U/L (16-61); Albumin, Serum 3.7 g/dL (3.2-5.0); Alkaline Phosphatase 99 U/L (45-117); Anion Gap 2 (5-15); BUN 24 mg/dL (7-18); BUN/Creat Ratio 29.3 RATIO (10-20); Calcium,Total 8.9 mg/dL (8.5-10.1); Chloride 111 mmol/L (98-107); Cholesterol 107 mg/dL (200); Creatinine, Serum 0.82 mg/dL (0.70-1.30); EST Glomerular Filtration Rate 99 mL/min (>60); Est Glom Filt Rate - Afr Amer 120 mL/min (>60); Ferritin 70 ng/mL (26-388); Free T3 2.5 pg/mL (2.18-3.98); Globulin 3.8 g/dL (2.2-4.2); Glucose 84 mg/dL (74-106); High Density Lipoprotein 36 mg/dL; Iron 56 ug/dL (65-175); Iron Binding Capacity,Total 310 ug/dL (250-450); Magnesium 2.2 mg/dL (1.6-2.6); PERCENT IRON SATURATION 18.1 % (15.0-55.0); Potassium 4.3 mmol/L (3.5-5.1); Protein, Total 7.5 g/dL (6.4-8.2); Sodium Level 141 mmol/L (136-145); T4 Free Direct 0.82 ng/dL (0.76-1.46); Thyroid Stim Hormone (TSH) 1.62 uIU/mL (0.358-3.74); Triglycerides 69 mg/dL; Very Low Density Lipoprotein 14 mg/dL (5-40)
[2023-08-23 12:06] LABS: Insulin 7.8 mU/L (2.6-37.6); Vitamin B12 1039 pg/mL (211-911); Vitamin D,25 Hydroxy 101.6 ng/mL
[2023-08-27 21:06] LABS: Aspirgillus flavus Negative (Neg:<1:1); Aspirgillus fumigatus Negative (Neg:<1:1); Aspirgillus niger Negative (Neg:<1:1); B. henselae IgG Negative titer (Neg:<1:320); B. henselae IgM Negative titer (Neg:<1:100); B. quintana IgG Negative titer (Neg:<1:320); B. quintana IgM Negative titer (Neg:<1:100); CMV Acute Antibody IgM < 30.0 AU/mL (0.0-29.9); CMV Antibody IgG > 10.00 U/mL (0.00-0.59); EBV Acute VCA IgM < 36.0 U/mL (0.0-35.9); EBV Nuclear Antigen IgG > 600.0 U/mL (0.0-17.9); Histoplasma Abs Negative (Neg:<1:1); Lyme IgG P18 Ab Absent (.); Lyme IgG P23 Ab Absent (.); Lyme IgG P28 Ab Absent (.); Lyme IgG P30 Ab Absent (.); Lyme IgG P39 Ab Absent (.); Lyme IgG P41 Ab Absent (.); Lyme IgG P45 Ab Absent (.); Lyme IgG P58 Ab Absent (.); Lyme IgG P66 Ab Absent (.); Lyme IgG P93 Ab Absent (.); Lyme IgG WB Interpretation Negative (.); Lyme IgM P23 Ab Absent (.); Lyme IgM P39 Ab Absent (.); Lyme IgM P41 Ab Absent (.); Lyme IgM WB Interpretation Negative (.); Mycoplasma Pneum AB IgG 226 U/mL (0-99); Mycoplasma pneum. AB IgM < 770 U/mL (0-769); PARVOVIRUS B19 IGG 4.9 index (0.0-0.8); PARVOVIRUS B19 IGM 0.1 index (0.0-0.8); T3 Reverse 13.6 ng/dL (9.2-24.1)
== END | disposition home or self-care (01) ==
PROVIDERS: PCP Nurse Practitioner Family
DX: I42.8 Other cardiomyopathies (principal); I48.91 Unspecified atrial fibrillation; R53.83 Other fatigue; T56.0X1A Toxic effect of lead and its compounds, accidental (unintentional), initial encounter; E55.9 Vitamin D deficiency, unspecified
CPT/HCPCS: 36415; 80053; 80061; 82306; 82533; 82607; 82728; 83036; 83525; 83540; 83550; 83655; 83735; 83880; 84439; 84443; 84481; 84482; 85025; 86606; 86611; 86617; 86644; 86645; 86664; 86665; 86698; 86738; 86747

== ENCOUNTER 2023-09-21 18:02 | Emergency (ER) | payer MEDICARE, SELFPAY ==
[2023-06-02 09:41] VITALS: BMI 22.8
[2023-09-21 18:02] VITALS: BP 125/88; PULSE 65; RESP 14; TEMP 36.1; O2SAT 97; BMI 23.3
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
[2023-09-21 19:21] LABS: Absolute Lymphocyte Count 2.16 X10^3/uL (0.83-4.51); Absolute Neutrophil Count 4.8 X10^3/uL (2.0-7.7); Basophil# 0.04 X10^3/uL; Basophil% 0.5 % (0-1); Eosinophils% 2.5 % (0-5); Hematocrit 39.7 % (40-54); Hemoglobin 13.3 g/dL (13.0-16.5); Lymphocyte # 2.16 X10^3/ul (0.83-4.51); Lymphocyte % 26.9 % (19-41); Mean Corp Hgb Conc 33.5 g/dL (32-36); Mean Corpuscular Hgb 31.1 pg (27.0-32.0); Mean Corpuscular Volume 92.8 fL (80-94); Mean Platelet Vol. 12.1 fl (6.2-12.0); Monocyte# 0.86 X10^3/uL; Monocyte% 10.7 % (0-10); NRBC Flagged by Analyzer 0 % (0-5); Neutrophil # 4.76 X10^3/uL (2.7-7.7); Neutrophil % 59.3 % (47-70); Platelet Count 120 K/mm3 (150-450); RBC Distribution Width CV 13.9 % (11.6-14.6); RBC Distribution Width SD 47.8 fl (35.1-43.9); Red Blood Count 4.28 M/mm3 (4.6-6.2)
[2023-09-21 19:39] LABS: Alcohol, Blood (Medical)-Serum < 3.0 mg/dL
[2023-09-21 19:44] LABS: ALB/GLOB Ratio 1.1 RATIO (0.9-2.4); AST(SGOT) 35 U/L (15-37); Alanine Aminotransfer ALT/SGPT 34 U/L (16-61); Albumin, Serum 3.6 g/dL (3.2-5.0); Alkaline Phosphatase 93 U/L (45-117); Anion Gap 6 (5-15); BUN 19 mg/dL (7-18); BUN/Creat Ratio 23.4 RATIO (10-20); Calcium,Total 8.8 mg/dL (8.5-10.1); Chloride 107 mmol/L (98-107); Creatinine, Serum 0.81 mg/dL (0.70-1.30); EST Glomerular Filtration Rate 100 mL/min (>60); Est Glom Filt Rate - Afr Amer 121 mL/min (>60); Estimated Creatinine Clearance 88.87 ml/min; Globulin 3.4 g/dL (2.2-4.2); Glucose 99 mg/dL (74-106); Potassium 3.7 mmol/L (3.5-5.1); Sodium Level 139 mmol/L (136-145)
[2023-09-21 20:02] VITALS: BP 119/64; PULSE 64; RESP 16; O2SAT 99
[2023-09-21 20:28] VITALS: BP 117/69; PULSE 71; RESP 16; TEMP 36.1; O2SAT 99
== END 2023-09-21 20:29 | disposition home or self-care (01) ==
PROVIDERS: Emergency Provider Emergency Medicine; PCP Nurse Practitioner Family; Visit Provider Emergency Medicine
DX: S09.90XA Unspecified injury of head, initial encounter (principal); I48.91 Unspecified atrial fibrillation; S20.20XA Contusion of thorax, unspecified, initial encounter; S50.02XA Contusion of left elbow, initial encounter; Z87.891 Personal history of nicotine dependence; Z79.01 Long term (current) use of anticoagulants; V18.0XXA Pedal cycle driver injured in noncollision transport accident in nontraffic accident, initial encounter; Y92.410 Unspecified street and highway as the place of occurrence of the external cause; Z95.2 Presence of prosthetic heart valve; S90.511A Abrasion, right ankle, initial encounter
CPT/HCPCS: 70450; 71260; 72125; 73080; 74177; 80053; 80320; 85025; 99284; Q9967; A4216; G0480

== ENCOUNTER → 2023-10-23 | Outpatient (CLI) | payer MEDICARE, SELFPAY ==
[2023-06-02 09:41] VITALS: BMI 22.8
[2023-10-23 08:44] LABS: Absolute Lymphocyte Count 1.87 X10^3/uL (0.83-4.51); Absolute Neutrophil Count 2.7 X10^3/uL (2.0-7.7); Basophil# 0.06 X10^3/uL; Basophil% 1.1 % (0-1); Eosinophil# 0.27 X10^3/uL; Hematocrit 41.7 % (40-54); Hemoglobin 13.6 g/dL (13.0-16.5); Lymphocyte # 1.87 X10^3/ul (0.83-4.51); Lymphocyte % 34.4 % (19-41); Mean Corp Hgb Conc 32.6 g/dL (32-36); Mean Corpuscular Hgb 31.1 pg (27.0-32.0); Mean Corpuscular Volume 95.2 fL (80-94); Mean Platelet Vol. 12.5 fl (6.2-12.0); Monocyte# 0.54 X10^3/uL; Monocyte% 9.9 % (0-10); NRBC Flagged by Analyzer 0 % (0-5); Neutrophil # 2.69 X10^3/uL (2.7-7.7); Neutrophil % 49.4 % (47-70); POSITIVE COUNT YES; Platelet Count 89 K/mm3 (150-450); RBC Distribution Width CV 13.6 % (11.6-14.6); RBC Distribution Width SD 48.5 fl (35.1-43.9); Red Blood Count 4.38 M/mm3 (4.6-6.2); White Blood Count 5.4 K/mm3 (4.4-11.0)
[2023-10-23 09:16] LABS: Vitamin B12 927 pg/mL (211-911)
[2023-10-23 10:39] LABS: ALB/GLOB Ratio 0.9 RATIO (0.9-2.4); AST(SGOT) 27 U/L (15-37); Alanine Aminotransfer ALT/SGPT 25 U/L (16-61); Albumin, Serum 3.3 g/dL (3.2-5.0); Alkaline Phosphatase 109 U/L (45-117); Anion Gap 5 (5-15); BUN 21 mg/dL (7-18); BUN/Creat Ratio 28.2 RATIO (10-20); CRP, High Sensitivity Cardiac 1.08 mg/L; Calcium,Total 8.6 mg/dL (8.5-10.1); Chloride 111 mmol/L (98-107); Cholesterol 96 mg/dL (200); Creatinine, Serum 0.75 mg/dL (0.70-1.30); EST Glomerular Filtration Rate 110 mL/min (>60); Est Glom Filt Rate - Afr Amer 134 mL/min (>60); Ferritin 49 ng/mL (26-388); Free T3 2.4 pg/mL (2.18-3.98); Globulin 3.6 g/dL (2.2-4.2); Glucose 104 mg/dL (74-106); High Density Lipoprotein 36 mg/dL; Iron 48 ug/dL (65-175); Iron Binding Capacity,Total 341 ug/dL (250-450); Magnesium 1.9 mg/dL (1.6-2.6); PERCENT IRON SATURATION 14.1 % (15.0-55.0); Protein, Total 6.9 g/dL (6.4-8.2); Sodium Level 141 mmol/L (136-145); T4 Free Direct 0.79 ng/dL (0.76-1.46); Thyroid Stim Hormone (TSH) 0.64 uIU/mL (0.358-3.74); Triglycerides 52 mg/dL; Very Low Density Lipoprotein 10 mg/dL (5-40)
[2023-10-27 22:07] LABS: DHEA Sulfate 68.5 ug/dL (30.9-295.6); EBV Early Antigen IgG <9.0 U/mL (0.0-8.9); Estrogen, Total, Serum 80 pg/mL (56-213); Mycoplasma Pneum AB IgG 170 U/mL (0-99); Mycoplasma pneum. AB IgM < 770 U/mL (0-769); PARVOVIRUS B19 IGG 7.2 index (0.0-0.8); PARVOVIRUS B19 IGM 0.1 index (0.0-0.8); T3 Reverse 12.5 ng/dL (9.2-24.1); Testosterone, % Free 2.38 % (1.50-4.20); Testosterone, Free 9.78 ng/dL (5.00-21.00); Testosterone, Total 411 ng/dL (264-916)
== END | disposition home or self-care (01) ==
PROVIDERS: PCP Nurse Practitioner Family
DX: I42.9 Cardiomyopathy, unspecified (principal); E53.8 Deficiency of other specified B group vitamins; E61.1 Iron deficiency; E03.9 Hypothyroidism, unspecified; E27.40 Unspecified adrenocortical insufficiency; A74.9 Chlamydial infection, unspecified; R76.8 Other specified abnormal immunological findings in serum; E55.9 Vitamin D deficiency, unspecified; B08.3 Erythema infectiosum [fifth disease]; E29.1 Testicular hypofunction
CPT/HCPCS: 36415; 80053; 80061; 82306; 82533; 82607; 82627; 82672; 82728; 83540; 83550; 83735; 83880; 84305; 84402; 84403; 84439; 84443; 84481; 84482; 85025; 86141; 86644; 86645; 86663; 86738; 86747; 82626

== ENCOUNTER → 2023-10-26 | Outpatient (CLI) | payer MEDICARE, SELFPAY ==
[2023-06-02 09:41] VITALS: BMI 22.8
--- NOTE | 2023-10-26 12:47 | ECHOD_ITS ---
Reason For Study: Cardiomyopathy Procedure This was a 2D Doppler, Color Flow transthoracic echocardiogram. Exam performed in department. Left Ventricle Mild concentric left ventricular hypertrophy. Mildly dilated left ventricle. Severe LV global hypokinesis. Estimated LVEF 25%. Diastolic function is indeterminate. Right Ventricle Normal right ventricle. Atria The left atrium is mildly enlarged. Normal right atrium. Mitral Valve Mitral valve annuloplasty ring noted. Mild mitral valve regurgitation. Tricuspid Valve Trivial tricuspid valve insufficiency. Unable to estimate RV systolic pressure due to insufficient tricuspid regurgitant envelope. Aortic Valve Aortic sclerosis, no stenosis. Trivial aortic valve insufficiency. Pulmonic Valve The pulmonic valve is not well visualized. Great Vessels Normal sized aortic root. Pericardium/Pleural No pericardial effusion. MMode/2D Measurements & Calculations LVIDd: 6.1 cm IVSd: 1.1 cm LVOT diam: 2.1 cm LVIDs: 5.4 cm LVPWd: 1.2 cm LVOT area: 3.5 cm2 RVDd: 4.3 cm FS: 11.6 % Ao root diam: 3.2 cm LAV(MOD-bp): 68.9 ml LVAd ap4: 42.4 cm2 LAV(MOD-bp) Indexed: 36.3 ml/m2 LVLd ap4: 9.4 cm LAV(MOD-sp2): 67.3 ml EDV(MOD-sp4): 153.1 ml LAV(MOD-sp4): 65.6 ml EDV(sp4-el): 161.9 ml LVAs ap4: 34.8 cm2 LVLs ap4: 8.7 cm ESV(MOD-sp4): 115.5 ml ESV(sp4-el): 117.9 ml EF(MOD-sp4): 24.5 % EF(sp4-el): 27.2 % SV(MOD-sp4): 37.5 ml SV(sp4-el): 44.1 ml LA A4 area: 21.3 cm2 RA A4 area: 14.0 cm2 TAPSE: 1.4 cm Doppler Measurements & Calculations MV E max marcos: 94.9 cm/sec Lat Peak E' Marcos: 7.0 cm/sec Med Peak E' Marcos: 4.4 cm/sec E/E' lat: 13.5 E/E' med: 21.8 MV V2 max: 133.4 cm/sec Ao V2 max: 98.1 cm/sec LV V1 max: 74.9 cm/sec MV max P.1 mmHg Ao max P.9 mmHg LV V1 max P.2 mmHg MV V2 mean: 89.5 cm/sec Ao V2 mean: 67.7 cm/sec LV V1 mean P.2 mmHg MV mean P.8 mmHg Ao mean P.1 mmHg LV V1 mean: 50.7 cm/sec MV V2 VTI: 34.6 cm Ao V2 VTI: 16.2 cm LV V1 VTI: 13.9 cm AV (velocity ratio): 0.86 MVA(VTI): 1.4 cm2 PACO(I,D): 3.0 cm2 PACO(V,D): 2.6 cm2 MR max marcos: 513.8 cm/sec SV(LVOT): 48.1 ml PA V2 max: 78.5 cm/sec MR max P.6 mmHg PA max PG (full): 1.7 mmHg MR mean marcos: 369.5 cm/sec MR mean P.6 mmHg MR VTI: 157.5 cm ECHO/Echo Complete Interpretation Summary Mild concentric left ventricular hypertrophy. Mildly dilated left ventricle. Severe LV global hypokinesis. Estimated LVEF 25%. Diastolic function is indeterminate. The left atrium is mildly enlarged. Aortic sclerosis, no stenosis. Mitral valve annuloplasty ring noted. Mild mitral valve regurgitation. Ordering Physician: FABIEN KEARNS Referring Physician: FABIEN KEARNS Performed By: Miguel Mireles and Student
== END | disposition home or self-care (01) ==
LOC: CVS 12:44
PROVIDERS: PCP Nurse Practitioner Family
DX: I42.8 Other cardiomyopathies (principal)
CPT/HCPCS: 93306

== ENCOUNTER → 2024-01-15 | Outpatient (CLI) | payer MEDICARE, SELFPAY ==
[2023-06-02 09:41] VITALS: BMI 22.8
[2024-01-15 08:01] LABS: Absolute Lymphocyte Count 2.46 X10^3/uL (0.83-4.51); Absolute Neutrophil Count 2.9 X10^3/uL (2.0-7.7); Basophil# 0.05 X10^3/uL; Basophil% 0.8 % (0-1); Eosinophil# 0.31 X10^3/uL; Eosinophils% 4.8 % (0-5); Hemoglobin 13.7 g/dL (13.0-16.5); Lymphocyte # 2.46 X10^3/ul (0.83-4.51); Lymphocyte % 38.4 % (19-41); Mean Corp Hgb Conc 33.4 g/dL (32-36); Mean Corpuscular Hgb 30.6 pg (27.0-32.0); Mean Corpuscular Volume 91.7 fL (80-94); Mean Platelet Vol. 12.5 fl (6.2-12.0); Monocyte# 0.66 X10^3/uL; Monocyte% 10.3 % (0-10); NRBC Flagged by Analyzer 0 % (0-5); Neutrophil # 2.92 X10^3/uL (2.7-7.7); Neutrophil % 45.5 % (47-70); Platelet Count 113 K/mm3 (150-450); RBC Distribution Width CV 13.7 % (11.6-14.6); RBC Distribution Width SD 46.6 fl (35.1-43.9); Red Blood Count 4.47 M/mm3 (4.6-6.2); White Blood Count 6.4 K/mm3 (4.4-11.0)
[2024-01-15 08:30] LABS: Vitamin B12 715 pg/mL (211-911)
[2024-01-15 08:36] LABS: BNP,B-Type NATRIURETIC PEPTIDE 138.5 pg/mL (0-100)
[2024-01-15 08:43] LABS: ALB/GLOB Ratio 0.9 RATIO (0.9-2.4); AST(SGOT) 22 U/L (15-37); Alanine Aminotransfer ALT/SGPT 25 U/L (16-61); Albumin, Serum 3.4 g/dL (3.2-5.0); Alkaline Phosphatase 102 U/L (45-117); Anion Gap 5 (5-15); BUN 21 mg/dL (7-18); BUN/Creat Ratio 24.2 RATIO (10-20); Calcium,Total 8.9 mg/dL (8.5-10.1); Chloride 111 mmol/L (98-107); Cholesterol 106 mg/dL (200); Creatinine, Serum 0.87 mg/dL (0.70-1.30); EST Glomerular Filtration Rate 93 mL/min (>60); Est Glom Filt Rate - Afr Amer 112 mL/min (>60); Ferritin 103 ng/mL (26-388); Free T3 2.2 pg/mL (2.18-3.98); Globulin 3.8 g/dL (2.2-4.2); Glucose 101 mg/dL (74-106); High Density Lipoprotein 43 mg/dL; Iron 73 ug/dL (65-175); Iron Binding Capacity,Total 301 ug/dL (250-450); PERCENT IRON SATURATION 24.3 % (15.0-55.0); PSA,Total - Annual Screen 0.75 ng/mL (0.00-4.00); Potassium 3.7 mmol/L (3.5-5.1); Protein, Total 7.2 g/dL (6.4-8.2); Sodium Level 142 mmol/L (136-145); Triglycerides 74 mg/dL; Very Low Density Lipoprotein 15 mg/dL (5-40)
[2024-01-23 15:09] LABS: Arsenic 7245 1 ug/L (0-9); Complement C3 120 mg/dL (82-167); Copper, Serum or Plasma 75 ug/dL (69-132); DHEA Sulfate 61.9 ug/dL (30.9-295.6); EBV Acute VCA IgM < 36.0 U/mL (0.0-35.9); EBV Early Antigen IgG <9.0 U/mL (0.0-8.9); EBV Nuclear Antigen IgG > 600.0 U/mL (0.0-17.9); Estrogen, Total, Serum 86 pg/mL (56-213); Immunoglobulin A 321 mg/dL (61-437); Immunoglobulin E 58 IU/mL (6-495); Immunoglobulin G 1401 mg/dL (603-1613); Immunoglobulin M 74 mg/dL (20-172); Lead, Blood Adult 16+yrs 3.5 ug/dL (0.0-3.4); Lyme IgG P18 Ab Absent (.); Lyme IgG P23 Ab Absent (.); Lyme IgG P28 Ab Absent (.); Lyme IgG P30 Ab Absent (.); Lyme IgG P39 Ab Absent (.); Lyme IgG P41 Ab Absent (.); Lyme IgG P45 Ab Absent (.); Lyme IgG P58 Ab Absent (.); Lyme IgG P66 Ab Absent (.); Lyme IgG P93 Ab Absent (.); Lyme IgG WB Interpretation Negative (.); Lyme IgM P23 Ab Absent (.); Lyme IgM P39 Ab Absent (.); Lyme IgM P41 Ab Absent (.); Lyme IgM WB Interpretation Negative (.); Mercury, Blood 85324 < 1.0 ug/L (0.0-14.9); Mycoplasma Pneum AB IgG 197 U/mL (0-99); Mycoplasma pneum. AB IgM < 770 U/mL (0-769); PARVOVIRUS B19 IGG 6.1 index (0.0-0.8); PARVOVIRUS B19 IGM 0.1 index (0.0-0.8); T3 Reverse 16.3 ng/dL (9.2-24.1); Testosterone, % Free 1.83 % (1.50-4.20); Testosterone, Free 6.86 ng/dL (5.00-21.00); Testosterone, Total 375 ng/dL (264-916); Thyroglobulin Antibody < 1.0 IU/mL (0.0-0.9); Thyroid Peroxidase AB < 9 IU/mL (0-34); Zinc, Plasma or Serum 84 ug/dL (44-115)
== END | disposition home or self-care (01) ==
PROVIDERS: PCP Nurse Practitioner Family
DX: A49.9 Bacterial infection, unspecified (principal); I42.8 Other cardiomyopathies; T56.0X1A Toxic effect of lead and its compounds, accidental (unintentional), initial encounter; E03.9 Hypothyroidism, unspecified; R53.83 Other fatigue; E53.8 Deficiency of other specified B group vitamins; E55.9 Vitamin D deficiency, unspecified; Z12.5 Encounter for screening for malignant neoplasm of prostate; E29.1 Testicular hypofunction
CPT/HCPCS: 36415; 80053; 80061; 82306; 82525; 82533; 82607; 82627; 82672; 82728; 82784; 82785; 83018; 83540; 83550; 83655; 83735; 83825; 83880; 84153; 84402; 84403; 84439; 84443; 84481; 84482; 84630; 85025; 86160; 86376; 86617; 86663; 86664; 86665; 86738; 86747; 86800; 82626; G0103

== ENCOUNTER → 2024-01-25 | Outpatient (CLI) | payer MEDICARE, SELFPAY ==
[2023-06-02 09:41] VITALS: BMI 22.8
--- NOTE | 2024-01-25 07:51 | ECHOD_ITS ---
Reason For Study: Cardiomyopathy Procedure This was a 2D Doppler, Color Flow transthoracic echocardiogram. Exam performed in department. Left Ventricle Mildly dilated left ventricle. The estimated ejection fraction is 35 %. There is evidence of diastolic dysfunction. There is moderate to severe global hypokinesis of the left ventricle. Right Ventricle Normal RV size. Normal systolic function. Atria The left atrium is mildly enlarged. Normal right atrium. No doppler evidence for ASD. Mitral Valve There is no mitral valve stenosis. Trivial mitral valve insufficiency. An annuloplasty ring is noted in the mitral position. Tricuspid Valve There is no tricuspid stenosis. Trivial tricuspid valve insufficiency. Unable to estimate RV systolic pressure due to insufficient tricuspid regurgitant envelope. Aortic Valve Trisinus/trileaflet aortic valve. There is no aortic stenosis. No aortic valve insufficiency. Pulmonic Valve There is no pulmonic valvular stenosis. No pulmonic valve insufficiency. Great Vessels Normal aortic root. Pericardium/Pleural No pericardial effusion. MMode/2D Measurements & Calculations LVIDd: 6.3 cm IVSd: 1.1 cm Ao root diam: 3.1 cm LVIDs: 5.4 cm LVPWd: 0.97 cm RVDd: 4.1 cm FS: 14.2 % LAV(MOD-bp): 91.6 ml LVAd ap4: 46.2 cm2 SV(MOD-sp4): 45.5 ml LAV(MOD-bp) Indexed: 48.3 ml/m2 LVLd ap4: 8.9 cm LAV(MOD-sp2): 87.8 ml EDV(MOD-sp4): 195.4 ml LAV(MOD-sp4): 90.6 ml EDV(sp4-el): 204.3 ml LVAs ap4: 38.7 cm2 LVLs ap4: 8.1 cm ESV(MOD-sp4): 149.9 ml ESV(sp4-el): 156.7 ml EF(MOD-sp4): 23.3 % EF(sp4-el): 23.3 % SV(sp4-el): 47.6 ml Ao sinus diam: 3.[address] Junction: 2.5 cm LA dimension(2D): 5.0 cm LA A4 area: 25.6 cm2 RA A4 area: 18.2 cm2 TAPSE: 1.3 cm Time Measurements MV dec time: 0.19 sec Doppler Measurements & Calculations MV E max marcos: 125.7 cm/sec Lat Peak E' Marcos: 8.0 cm/sec Med Peak E' Marcos: 5.0 cm/sec MV A max marcos: 87.4 cm/sec E/E' lat: 15.8 E/E' med: 25.2 MV E/A: 1.4 MV V2 max: 129.1 cm/sec MV P1/2t max marcos: 129.6 cm/sec Ao V2 max: 116.6 cm/sec MV max P.7 mmHg MV P1/2t: 66.2 msec Ao max P.5 mmHg MV V2 mean: 84.3 cm/sec MV dec slope: 573.6 cm/sec2 Ao V2 mean: 81.9 cm/sec MV mean P.3 mmHg Ao mean P.1 mmHg MV V2 VTI: 36.0 cm MVA(P1/2t): 3.3 cm2 Ao V2 VTI: 21.1 cm AV (velocity ratio): 0.75 LV V1 max: 88.2 cm/sec MR max marcos: 579.0 cm/sec PA V2 max: 100.9 cm/sec LV V1 max P.2 mmHg MR max P.1 mmHg PA max PG (full): 3.0 mmHg LV V1 mean P.6 mmHg MR mean marcos: 421.9 cm/sec LV V1 mean: 58.5 cm/sec MR mean P.7 mmHg LV V1 VTI: 15.9 cm MR VTI: 196.3 cm TR max marcos: 289.2 cm/sec TR max P.5 mmHg ECHO/Echo Complete Interpretation Summary The estimated ejection fraction is 35 %. There is moderate to severe global hypokinesis of the left ventricle. There is evidence of diastolic dysfunction. The left atrium is mildly enlarged. Trivial mitral valve insufficiency. Ordering Physician: FABIEN KEARNS Referring Physician: FABIEN KEARNS Performed By: Miguel Boss RCS
== END | disposition home or self-care (01) ==
LOC: CVS 07:50
PROVIDERS: PCP Nurse Practitioner Family
DX: I42.8 Other cardiomyopathies (principal)
CPT/HCPCS: 93306

== ENCOUNTER → 2024-02-27 | Outpatient (CLI) | payer MEDICARE, SELFPAY ==
[2023-06-02 09:41] VITALS: BMI 22.8
[2024-02-27 07:29] LABS: Absolute Lymphocyte Count 2.41 X10^3/uL (0.83-4.51); Absolute Neutrophil Count 2.7 X10^3/uL (2.0-7.7); Basophil# 0.05 X10^3/uL; Basophil% 0.8 % (0-1); Eosinophils% 4.9 % (0-5); Hematocrit 39.6 % (40-54); Hemoglobin 13.2 g/dL (13.0-16.5); Lymphocyte # 2.41 X10^3/ul (0.83-4.51); Lymphocyte % 39.3 % (19-41); Mean Corp Hgb Conc 33.3 g/dL (32-36); Mean Corpuscular Hgb 30.9 pg (27.0-32.0); Mean Corpuscular Volume 92.7 fL (80-94); Mean Platelet Vol. 12.3 fl (6.2-12.0); Monocyte# 0.62 X10^3/uL; Monocyte% 10.1 % (0-10); NRBC Flagged by Analyzer 0 % (0-5); Neutrophil # 2.74 X10^3/uL (2.7-7.7); Neutrophil % 44.6 % (47-70); Platelet Count 127 K/mm3 (150-450); RBC Distribution Width SD 47.8 fl (35.1-43.9); Red Blood Count 4.27 M/mm3 (4.6-6.2); White Blood Count 6.1 K/mm3 (4.4-11.0)
[2024-02-27 07:55] LABS: BNP,B-Type NATRIURETIC PEPTIDE 213.5 pg/mL (0-100)
[2024-02-27 08:00] LABS: Hemoglobin A1c 5.2 % (3.8-5.6)
[2024-02-27 08:01] LABS: Vitamin B12 635 pg/mL (211-911); Vitamin D,25 Hydroxy 90.2 ng/mL
[2024-02-27 08:24] LABS: AST(SGOT) 21 U/L (15-37); Alanine Aminotransfer ALT/SGPT 29 U/L (16-61); Albumin, Serum 3.3 g/dL (3.2-5.0); Alkaline Phosphatase 87 U/L (45-117); Anion Gap 5 (5-15); BUN 19 mg/dL (7-18); BUN/Creat Ratio 27.1 RATIO (10-20); Calcium,Total 8.7 mg/dL (8.5-10.1); Chloride 113 mmol/L (98-107); Cholesterol 108 mg/dL (200); EST Glomerular Filtration Rate 118 mL/min (>60); Est Glom Filt Rate - Afr Amer 143 mL/min (>60); Free T3 2.2 pg/mL (2.18-3.98); Globulin 3.4 g/dL (2.2-4.2); Glucose 97 mg/dL (74-106); High Density Lipoprotein 39 mg/dL; Magnesium 1.9 mg/dL (1.6-2.6); Potassium 3.9 mmol/L (3.5-5.1); Protein, Total 6.7 g/dL (6.4-8.2); Sodium Level 142 mmol/L (136-145); T4 Free Direct 0.72 ng/dL (0.76-1.46); Triglycerides 76 mg/dL; Very Low Density Lipoprotein 15 mg/dL (5-40)
[2024-03-04 14:09] LABS: EBV Acute VCA IgM < 36.0 U/mL (0.0-35.9); EBV Early Antigen IgG <9.0 U/mL (0.0-8.9); EBV Nuclear Antigen IgG > 600.0 U/mL (0.0-17.9); Estrogen, Total, Serum 68 pg/mL (56-213); Insulin Level 7.3 uIU/mL (2.6-24.9); Lead, Blood Adult 16+yrs 3.1 ug/dL (0.0-3.4); T3 Reverse 9.9 ng/dL (9.2-24.1); Testosterone, Free 8.11 ng/dL (5.00-21.00); Testosterone, Total 386 ng/dL (264-916)
== END | disposition home or self-care (01) ==
PROVIDERS: PCP Nurse Practitioner Family; Referring Provider Family Medicine; Visit Provider Family Medicine
DX: E27.5 Adrenomedullary hyperfunction (principal); I42.8 Other cardiomyopathies; E03.9 Hypothyroidism, unspecified; B27.00 Gammaherpesviral mononucleosis without complication; A49.3 Mycoplasma infection, unspecified site; E53.8 Deficiency of other specified B group vitamins; E55.9 Vitamin D deficiency, unspecified; J16.0 Chlamydial pneumonia; T56.0X1A Toxic effect of lead and its compounds, accidental (unintentional), initial encounter
CPT/HCPCS: 36415; 80053; 80061; 82306; 82533; 82607; 82672; 83036; 83525; 83655; 83735; 83880; 84402; 84403; 84439; 84443; 84481; 84482; 85025; 86663; 86664; 86665

== ENCOUNTER → 2024-06-05 | Outpatient (CLI) | payer MEDICARE, SELFPAY ==
[2023-06-02 09:41] VITALS: BMI 22.8
[2024-06-05 08:53] LABS: Absolute Lymphocyte Count 2.61 X10^3/uL (0.83-4.51); Absolute Neutrophil Count 2.9 X10^3/uL (2.0-7.7); Basophil# 0.07 X10^3/uL; Basophil% 1.1 % (0-1); Eosinophil# 0.38 X10^3/uL; Eosinophils% 5.8 % (0-5); Hematocrit 43.2 % (40-54); Hemoglobin 14.6 g/dL (13.0-16.5); Lymphocyte # 2.61 X10^3/ul (0.83-4.51); Mean Corp Hgb Conc 33.8 g/dL (32-36); Mean Corpuscular Volume 91.7 fL (80-94); Mean Platelet Vol. 11.5 fl (6.2-12.0); Monocyte# 0.53 X10^3/uL; Monocyte% 8.1 % (0-10); NRBC Flagged by Analyzer 0 % (0-5); Neutrophil # 2.92 X10^3/uL (2.7-7.7); Neutrophil % 44.8 % (47-70); Platelet Count 144 K/mm3 (150-450); RBC Distribution Width CV 13.5 % (11.6-14.6); Red Blood Count 4.71 M/mm3 (4.6-6.2); White Blood Count 6.5 K/mm3 (4.4-11.0)
[2024-06-05 09:17] LABS: PTHIN 53.3 pg/mL (18.4-80.1)
[2024-06-05 09:20] LABS: Vitamin B12 648 pg/mL (211-911); Vitamin D,25 Hydroxy 78.6 ng/mL
[2024-06-05 09:27] LABS: ALB/GLOB Ratio 0.9 RATIO (0.9-2.4); AST(SGOT) 24 U/L (15-37); Alanine Aminotransfer ALT/SGPT 30 U/L (16-61); Albumin, Serum 3.5 g/dL (3.2-5.0); Alkaline Phosphatase 94 U/L (45-117); Anion Gap 4 (5-15); BUN 20 mg/dL (7-18); BUN/Creat Ratio 26.6 RATIO (10-20); Calcium,Total 9.1 mg/dL (8.5-10.1); Chloride 108 mmol/L (98-107); Cholesterol 112 mg/dL (200); Creatinine, Serum 0.75 mg/dL (0.70-1.30); EST Glomerular Filtration Rate 109 mL/min (>60); Est Glom Filt Rate - Afr Amer 132 mL/min (>60); Ferritin 88 ng/mL (26-388); Free T3 2.7 pg/mL (2.18-3.98); Globulin 3.9 g/dL (2.2-4.2); Glucose 102 mg/dL (74-106); High Density Lipoprotein 45 mg/dL; Iron 88 ug/dL (65-175); Iron Binding Capacity,Total 331 ug/dL (250-450); Magnesium 2.1 mg/dL (1.6-2.6); Potassium 4.2 mmol/L (3.5-5.1); Protein, Total 7.4 g/dL (6.4-8.2); Sodium Level 140 mmol/L (136-145); T4 Free Direct 0.87 ng/dL (0.76-1.46); Triglycerides 68 mg/dL; Very Low Density Lipoprotein 14 mg/dL (5-40)
[2024-06-06 04:07] LABS: PROGESTERONE 0.3 ng/mL (0.0-0.5)
[2024-06-08 13:07] LABS: Lead, Blood Adult 16+yrs 3.4 ug/dL (0.0-3.4)
[2024-06-14 10:08] LABS: Anti-Thyroglobulin AB < 1.0 IU/mL (0.0-0.9); EBV Acute VCA IgM < 36.0 U/mL (0.0-35.9); EBV Early Antigen IgG <9.0 U/mL (0.0-8.9); EBV Nuclear Antigen IgG > 600.0 U/mL (0.0-17.9); Estrogen, Total, Serum 64 pg/mL (56-213); Insulin Like Growth Factor 159 ng/mL (59-230); Lyme IgG P18 Ab Absent (.); Lyme IgG P23 Ab Absent (.); Lyme IgG P28 Ab Absent (.); Lyme IgG P30 Ab Absent (.); Lyme IgG P39 Ab Absent (.); Lyme IgG P41 Ab Absent (.); Lyme IgG P45 Ab Absent (.); Lyme IgG P58 Ab Absent (.); Lyme IgG P66 Ab Absent (.); Lyme IgG P93 Ab Absent (.); Lyme IgG WB Interpretation Negative (.); Lyme IgM P23 Ab Absent (.); Lyme IgM P39 Ab Absent (.); Lyme IgM P41 Ab Absent (.); Lyme IgM WB Interpretation Negative (.); PARVOVIRUS B19 IGG 5.3 index (0.0-0.8); PARVOVIRUS B19 IGM 0.1 index (0.0-0.8); PROLACTIN 20.9 ng/mL (3.6-25.2); Sex Hormone-binding Globulin 48.4 nmol/L (19.3-76.4); T3 Reverse 11.2 ng/dL (9.2-24.1); Testosterone, % Free 3.81 % (1.50-4.20); Testosterone, Free 15.62 ng/dL (5.00-21.00); Testosterone, Total 410 ng/dL (264-916); Thyroglobulin, Serum Qt. 6.1 ng/mL (1.4-29.2); Thyroid Peroxidase AB < 9 IU/mL (0-34)
== END | disposition home or self-care (01) ==
PROVIDERS: Referring Provider Family Medicine; Visit Provider Family Medicine
DX: E03.9 Hypothyroidism, unspecified (principal); I42.8 Other cardiomyopathies; R53.83 Other fatigue; E27.5 Adrenomedullary hyperfunction; A28.1 Cat-scratch disease; A77.0 Spotted fever due to Rickettsia rickettsii; E53.8 Deficiency of other specified B group vitamins; E55.9 Vitamin D deficiency, unspecified; E29.1 Testicular hypofunction; D64.9 Anemia, unspecified; J16.0 Chlamydial pneumonia; B27.00 Gammaherpesviral mononucleosis without complication; A69.20 Lyme disease, unspecified; A49.3 Mycoplasma infection, unspecified site; B34.3 Parvovirus infection, unspecified; T57.0X1 Toxic effect of arsenic and its compounds, accidental (unintentional)
CPT/HCPCS: 36415; 80053; 80061; 82306; 82533; 82607; 82627; 82672; 82728; 83018; 83540; 83550; 83655; 83735; 83970; 84144; 84146; 84270; 84305; 84402; 84403; 84432; 84439; 84443; 84481; 84482; 85025; 86376; 86617; 86663; 86664; 86665; 86747; 86800; 82626

== ENCOUNTER → 2024-06-11 | Outpatient (CLI) | payer MEDICARE, SELFPAY ==
[2023-06-02 09:41] VITALS: BMI 22.8
--- NOTE | 2024-06-11 13:55 | ECHOD_ITS ---
Reason For Study Reason For Study: CARDIOMYOPATHY Procedure This was a 2D Doppler, Color Flow transthoracic echocardiogram. Exam performed in department. Left Ventricle Mildly dilated left ventricle. The left ventricular ejection fraction is 35 %. There is moderate to severe global hypokinesis of the left ventricle. Right Ventricle Normal RV size. Normal systolic function. Atria Normal left atrium. Normal right atrium. Mitral Valve Mild-Moderate (1-2+) eccentric mitral valve insufficiency. Status post mitral valve repair with annuloplasty ring. Tricuspid Valve Normal tricuspid valve. Mild tricuspid valve insufficiency. Pulmonary artery systolic pressure is 26 mmHg. Aortic Valve Trisinus/trileaflet aortic valve. Mild focal aortic valve calcification. Pulmonic Valve Normal pulmonic valve. Great Vessels Normal aortic root. The pulmonary artery is normal size. The inferior vena cava is dilated. Inferior vena cava collapse with respiration. Pericardium/Pleural No pericardial effusion. MMode/2D Measurements & Calculations LVIDd: 6.3 cm IVSd: 1.1 cm LVOT diam: 2.1 cm LVIDs: 4.3 cm LVPWd: 1.1 cm LVOT area: 3.5 cm2 RVDd: 4.7 cm FS: 31.9 % asc Aorta Diam: 3.2 cm LAV(MOD-bp): 85.4 ml LVAd ap4: 39.4 cm2 LAV(MOD-sp2): 86.2 ml LVLd ap4: 9.4 cm LAV(MOD-sp4): 80.9 ml EDV(MOD-sp4): 134.7 ml EDV(sp4-el): 140.7 ml LVAs ap4: 30.2 cm2 LVLs ap4: 8.9 cm ESV(MOD-sp4): 88.1 ml ESV(sp4-el): 87.2 ml EF(MOD-sp4): 34.6 % EF(sp4-el): 38.1 % LVAd ap2: 39.8 cm2 SV(MOD-sp4): 46.6 ml SV(MOD-sp2): 58.4 ml LVLd ap2: 9.1 cm EDV(MOD-sp2): 141.3 ml EDV(sp2-el): 148.3 ml LVAs ap2: 29.3 cm2 LVLs ap2: 8.9 cm ESV(MOD-sp2): 82.9 ml ESV(sp2-el): 81.6 ml EF(MOD-sp2): 41.3 % SV(sp4-el): 53.6 ml Ao sinus diam: 3.[address] Junction: 2.4 cm LA dimension(2D): 4.3 cm LA A4 area: 25.0 cm2 RA A4 area: 18.3 cm2 TAPSE: 1.6 cm Time Measurements MV dec time: 0.21 sec Doppler Measurements & Calculations MV E max marcos: 156.2 cm/sec Lat Peak E' Marcos: 7.9 cm/sec Med Peak E' Marcos: 5.4 cm/sec E/E' lat: 19.7 E/E' med: 28.8 MV V2 max: 147.5 cm/sec Ao V2 max: 147.6 cm/sec LV V1 max: 103.4 cm/sec MV max P.7 mmHg Ao max P.7 mmHg LV V1 max P.4 mmHg MV V2 mean: 107.7 cm/sec Ao V2 mean: 108.7 cm/sec LV V1 mean P.3 mmHg MV mean P.0 mmHg Ao mean P.1 mmHg LV V1 mean: 69.0 cm/sec MV V2 VTI: 43.9 cm Ao V2 VTI: 26.1 cm LV V1 VTI: 20.2 cm MVA(VTI): 1.6 cm2 AV (velocity ratio): 0.78 PACO(I,D): 2.7 cm2 PACO(V,D): 2.4 cm2 SV(LVOT): 70.4 ml PA V2 max: 88.7 cm/sec TR max marcos: 242.2 cm/sec TR max P.5 mmHg ECHO/Echo Complete Interpretation Summary Status post mitral valve repair with annuloplasty ring. Mildly dilated left ventricle. The left ventricular ejection fraction is 35 %. Mild-Moderate (1-2+) eccentric mitral valve insufficiency. Pulmonary artery systolic pressure is 26 mmHg. Ordering Physician: Dale Ahn Referring Physician: Dale Ahn Performed By: Natalya Billings RDCS
== END | disposition home or self-care (01) ==
PROVIDERS: PCP Family Medicine; Referring Provider Family Medicine; Visit Provider Family Medicine
DX: I42.8 Other cardiomyopathies (principal)
CPT/HCPCS: 93306